=== PATIENT | male | born 1950 | race Caucasian/White ===

== ENCOUNTER 2020-02-04 09:23 | Outpatient (CLI) | payer MEDICARE, SELFPAY ==
[2020-02-04 11:03] LABS: Hepatitis B Surface Antigen Negative (Negative)
[2020-02-04 11:21] LABS: Hepatitis B Surface Anti Res Negative
[2020-02-06 09:19] LABS: Hepatitis C Viral RNA PCR <15 IU/mL
[2020-02-07 10:04] LABS: Hepatitis B Core Ab Total Nonreactive (Nonreactive)
== END 2020-02-04 09:24 | disposition home or self-care (01) ==
PROVIDERS: PCP Emergency Medicine; Visit Provider Internal Medicine Gastroenterology
DX: K70.30 Alcoholic cirrhosis of liver without ascites (principal); Z86.19 Personal history of other infectious and parasitic diseases
CPT/HCPCS: 36415; 86704; 86706; 87340; 87522

== ENCOUNTER 2020-11-07 09:25 | Outpatient (CLI) | payer MEDICARE, SELFPAY ==
--- NOTE | ~2020-11-07 | CT_ITS ---
EXAMINATION: CT chest abdomen pelvis wo con DATE: 11/07/2020 10:18 INDICATION: Congestive heart failure. TECHNIQUE: Computed tomography (CT) of the chest, abdomen, and pelvis was performed without intraveno us contrast. Automated exposure control and iterative reconstruction technique were employed. The dos e-length product was 1620.80 mGy-cm. COMPARISON: Chest CT 12/11/2019, lumbar spine 03/04/19 FINDINGS: CHEST CT: There is mild emphysema. There is mild atelectasis in the inferior lungs. There is mild bronchiectasi s in left lower lobe. No pleural effusion. The heart size is normal. There are coronary artery calcif ications. No pericardial effusion. There are chronic compression fractures of T4, T5, and T8. ABDOMEN/PELVIS CT: The liver demonstrates hypertrophy of left lateral segment and surface nodularity, consistent with ci rrhosis. There are changes of cholecystectomy. The spleen is normal in size. The pancreas, adrenal gl ands, and kidneys are normal. There is no urolithiasis. The prostate is moderately enlarged. There is diverticulosis of the colon without evidence of diverticulitis. There are no dilated loops of bowel. The appendix is normal. 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 There is a splenorenal portacaval shunt. There ar e no pathologically enlarged lymph nodes. There is no free intraperitoneal fluid. There are changes o f anterior fusion procedures at L3-L4, L4-L5, and L5-S1. There are changes of posterior fusion proced ure from T9 to the sacrum and iliac bones. There are chronic lucencies around the right L3 screw, whi ch extends into the L2 inferior endplate, consistent with loosening. The left L3 screw has been remov ed. IMPRESSION: 1. Cirrhosis of the liver with portal venous hypertension. 2. Mild emphysema. Reviewed, dictated and finalized at location A. IN STATION OPERATOR
[2020-11-07 10:36] LABS: Albumin Level 3.8 g/dL (3.5-5.1); Anion Gap 5 mmol/L (8-16); Blood Urea Nitrogen 21 mg/dL (9-20); Calcium 8.9 mg/dL (8.4-10.2); Carbon Dioxide 32 mmol/L (22-30); Chloride 97 mmol/L (98-107); Estimated Glomerular Filt Rate > 60; Glucose 120 mg/dL (75-110); Phosphorus 4.7 mg/dL (2.5-4.5); Sodium 134 mmol/L (137-145)
[2020-11-07 10:43] LABS: NT Pro B Type Natriuretic Pept 42 PG/ML (5-100)
== END 2020-11-07 09:26 | disposition home or self-care (01) ==
PROVIDERS: PCP Emergency Medicine; Visit Provider Emergency Medicine
DX: I50.9 Heart failure, unspecified (principal); I11.0 Hypertensive heart disease with heart failure; K70.31 Alcoholic cirrhosis of liver with ascites; R06.00 Dyspnea, unspecified; J43.9 Emphysema, unspecified; I25.10 Atherosclerotic heart disease of native coronary artery without angina pectoris; J47.9 Bronchiectasis, uncomplicated; N40.0 Benign prostatic hyperplasia without lower urinary tract symptoms; Z98.1 Arthrodesis status; K76.6 Portal hypertension
CPT/HCPCS: 36415; 71250; 74176; 80069; 83880

== ENCOUNTER 2020-12-02 18:35 | Emergency (ER) | payer MEDICARE, SELFPAY ==
--- NOTE | ~2020-12-02 | XR_ITS ---
EXAMINATION: XR chest 2V DATE: 12/02/2020 19:30 INDICATION: Shortness of breath and cough TECHNIQUE: PA and lateral views of the chest were obtained. COMPARISON: Chest radiograph and CT dated 11/01/2019 FINDINGS: Unchanged bandlike opacity anterior left lower lung zone consistent with lingular atelectasis along s raven a small left paracardial fat pad. Additional mild streaky atelectasis or posteriorly at the lung bases. No new airspace opacities, pulmonary edema, pleural effusion or pneumothorax. Arch size is nor mal. Cholecystectomy clips in right upper quadrant. Partially visualized bilateral vertical paul and p edicle screw fixations extending from the lower thoracic into at least the upper lumbar spine and bey ond the inferior margin of the [id number]. IMPRESSION: 1. No significant change in chronic bibasilar atelectasis/scarring. Reviewed, dictated and finalized at location A. ION MECHANIC HELPER
--- NOTE | 2020-12-02 18:37 | ECG_ITS ---
Measurements Intervals [place] Rate: 106 P: 49 UT: 202 QRS: -19 QRSD: 94 T: 46 QT: 326 QTc: 433 Interpretive Statements SINUS TACHYCARDIA VENTRICULAR PREMATURE COMPLEX INCOMPLETE RIGHT BUNDLE BRANCH BLOCK DELAYED PRECORDIAL R/S TRANSITION BASELINE ARTIFACT- I, II, III ABNORMAL ECG Electronically Signed On 12-03-2020 6:58:13 MATH AND SCIENCE INSTRUCTOR by Kendall Cameron D.O.
[2020-12-02 19:09] VITALS: BP 189/74; PULSE 98; RESP 20; TEMP 36.5; O2SAT 93
[2020-12-02 19:36] LABS: Anion Gap 5 mmol/L (8-16); Blood Urea Nitrogen 14 mg/dL (9-20); Calcium 8.8 mg/dL (8.4-10.2); Carbon Dioxide 28 mmol/L (22-30); Chloride 100 mmol/L (98-107); Estimated CRCL calculation 79 ml/min; Estimated Glomerular Filt Rate > 60; Glucose 103 mg/dL (75-110); Potassium 4.3 mmol/L (3.4-5.0); Sodium 133 mmol/L (137-145)
[2020-12-02 20:24] LABS: Basophils Percent Auto 0.6 % (0.2-1.2); Eosinophils Absolute Auto 0.1 K/mm3 (0-0.3); Eosinophils Percent Auto 2.2 % (0-4.4); Hematocrit 36.3 % (42.0-52.0); Immature Granulocyte Absolute 0.02 K/mm3 (0.00-0.031); Immature Granulocyte Percent A 0.4 % (0-0.5); Lymphocytes Absolute Auto 0.53 K/mm3 (0.9-3.2); Lymphocytes Percent Auto 10.7 % (18.3-44.2); Mean Corpuscular HGB Conc 35.8 g/dl (32-36); Mean Corpuscular Volume 97.8 fl (80-100); Monocytes Absolute Auto 0.5 K/mm3 (0.1-0.6); Monocytes Percent Auto 9.3 % (2.6-8.5); Neutrophils Absolute Auto 3.8 K/mm3 (1.3-6.7); Neutrophils Percent Auto 76.8 % (45.5-73.1); Platelet Count Result 96 k/mm3 (150-375); Red Blood Count 3.71 M/mm3 (4.6-6.20); Red Cell Distribution Width 11.9 % (11.5-14.5)
[2020-12-02 20:28] VITALS: BP 185/86; PULSE 90; PULSE 91; RESP 24; O2SAT 96
[2020-12-02] MEDS: IPRATROPIUM BR 0.02% INH SOLN 0.5 MG/2.5 ML VIAL INHALATION (21:02)
[2020-12-02] MEDS: ALBUTEROL SULFATE NEB 2.5 MG/0.5 ML INH 5 MG INHALATION (21:02)
[2020-12-02 21:07] VITALS: PULSE 103; RESP 24
[2020-12-02 21:15] VITALS: PULSE 104; RESP 20
[2020-12-02 21:17] LABS: NT Pro B Type Natriuretic Pept 50 PG/ML (5-100); Troponin I < 0.012 ng/mL (0.000-0.034)
[2020-12-02 22:12] VITALS: BP 169/72; PULSE 88; RESP 22; O2SAT 98
[2020-12-02 22:38] VITALS: BP 159/65; PULSE 102; RESP 22; O2SAT 96
--- NOTE | 2020-12-02 22:38 | ED.SOB ---
HPI - SOB/Dyspnea General Chief Complaint: Shortness of Breath/Dyspnea Stated Complaint: sob Time Seen by Provider: 12/02/20 20:23 Source: patient Mode of arrival: ambulatory Limitations: no limitations History of Present Illness HPI Narrative: 70-year-old with a history of COPD, here with complaints of shortness of breath for past few months, patient was seen earlier by his primary doctor and was later referred here to the ER. Patient states that he has been using Advair Diskus along with rescue inhaler. He is scheduled to see communication professor sometime in the next 2 months. He denies any fever or chills. Denies nausea or vomiting. Has occasional cough. Which is nonproductive. Pertinent past history: COPD Severity: mild Exacerbating factors: nothing Relieving factors: nothing Known history of: COPD Associated symptoms: denies other symptoms Related Data Home Medications Medication Instructions Recorded Confirmed albuterol sulfate 2.5 mg INHALATION Q6H 11/23/20 albuterol sulfate 90 mcg/actuation 1 inh INHALATION Q4H 11/23/20 aerosol inhaler doxazosin 4 mg tablet 4 mg PO DAILY 11/23/20 doxepin 25 mg capsule 25 mg PO DAILY 11/23/20 furosemide 20 mg tablet 20 mg PO QAM 11/23/20 gabapentin 300 mg capsule 300 mg PO DAILY 11/23/20 irbesartan 150 mg tablet 150 mg PO DAILY 11/23/20 oxycodone 5 mg tablet 5 mg PO Q8H PRN 11/23/20 phenytoin sodium extended 100 mg 100 mg PO TID 11/23/20 capsule ropinirole 1 mg tablet 1 mg PO BID 11/23/20 sertraline 100 mg tablet 100 mg PO DAILY 11/23/20 spironolactone 50 mg tablet 50 mg PO DAILY 11/23/20 umeclidinium 62.5 mcg/actuation 1 inh INHALATION DAILY 11/23/20 blister powder for inhalation zolpidem 10 mg tablet PO 11/23/20 Allergies Allergy/AdvReac Type Severity Reaction Status Date / Time hydromorphone Allergy Mild TARDIVE Verified 11/23/20 10:29 DYSKINESIA alprazolam Allergy Unknown Unknown Verified 11/23/20 10:29 codeine Allergy Unknown Unknown Verified 11/23/20 10:29 iodine Allergy Unknown Unknown Verified 11/23/20 10:29 Review of Systems Review of Systems: All systems reviewed & are unremarkable except as noted in HPI and below Constitutional: Constitutional: Reports no additional constitutional complaints Eyes: Eyes: Reports no additional eye complaints ENT: Reports system reviewed and no additional complaints, except as documented Cardiovascular: Cardiovascular: Reports no additional cardiovascular complaints Respiratory: Respiratory: Reports as per HPI Gastrointestinal: Gastrointestinal: Reports no additional gastrointestinal complaints Musculoskeletal: Musculoskeletal: Reports no additional musculoskeletal complaints PMFSH Past Medical History Medical History Osteoarthritis of spine with radiculopathy, lumbar region Other abnormal glucose Pain of right hip joint Pancytopenia Primary osteoarthritis involving multiple joints Recurrent occipital headache Right groin pain Seizure disorder Seizures Special screening for malignant neoplasm of prostate Tourette syndrome Trochanteric bursitis of right hip Unilateral inguinal hernia without obstruction or gangrene, recurrent URI, acute Family History Family History Father Acute myocardial infarction Hypertension Mother Family history of thyroid disease Family history of obesity Acute myocardial infarction Sibling Brain aneurysm Other Cerebrovascular accident Family history of cardiovascular disease Social History Social History Smoking status: Former smoker Smoking end date: 11/20/95 Alcohol intake: never Exam Narrative: Exam Narrative: GENERAL: Well-appearing, well-nourished, and in no acute distress. HEAD: Normocephalic, atraumatic. EYES: PERRLA and EOMI.. NECK: Supple. CHEST: very minimal wheeze bilateral
== END 2020-12-02 22:56 | disposition home or self-care (01) ==
PROVIDERS: Emergency Medicine; Emergency Provider Family Medicine; PCP Emergency Medicine
DX: J44.9 Chronic obstructive pulmonary disease, unspecified (principal); M47.26 Other spondylosis with radiculopathy, lumbar region; F95.2 Tourette's disorder; Z87.891 Personal history of nicotine dependence; R00.0 Tachycardia, unspecified; I49.3 Ventricular premature depolarization; I45.10 Unspecified right bundle-branch block; R94.31 Abnormal electrocardiogram [ECG] [EKG]
CPT/HCPCS: 36415; 71046; 80048; 83880; 84484; 85025; 93005; 94640; 99284

== ENCOUNTER 2020-12-17 15:34 | Outpatient (CLI) | payer MEDICARE, SELFPAY ==
[2020-12-17 15:48] LABS: Hematocrit 40.8 % (42.0-52.0); Hemoglobin 14.2 g/dL (14.0-18.0); Mean Corpuscular HGB Conc 34.8 g/dl (32-36); Mean Corpuscular Hemoglobin 34.6 pg (26-34); Mean Corpuscular Volume 99.5 fl (80-100); Mean Platelet Volume 9.5 fl (7.4-10.4); Platelet Count Result 110 k/mm3 (150-375); Red Cell Distribution Width 12.9 % (11.5-14.5); White Blood Count 6.5 K/mm3 (4.5-10.0)
[2020-12-17 16:02] LABS: Anion Gap 2 mmol/L (8-16); Blood Urea Nitrogen 17 mg/dL (9-20); CRP 0.6 mg/dL (<1.0); Calcium 9.6 mg/dL (8.4-10.2); Carbon Dioxide 31 mmol/L (22-30); Chloride 104 mmol/L (98-107); Estimated Glomerular Filt Rate > 60; Glucose 100 mg/dL (75-110); Potassium 4.9 mmol/L (3.4-5.0); Sodium 137 mmol/L (137-145)
[2020-12-17 16:09] LABS: NT Pro B Type Natriuretic Pept 84 PG/ML (5-100)
== END 2020-12-17 15:35 | disposition home or self-care (01) ==
LOC: ANHLAB 15:35
PROVIDERS: PCP Emergency Medicine; Visit Provider Internal Medicine Critical Care Medicine
DX: J44.1 Chronic obstructive pulmonary disease with (acute) exacerbation (principal); R06.02 Shortness of breath
CPT/HCPCS: 36415; 80048; 83880; 85027; 86140

== ENCOUNTER → 2020-12-29 03:51 | Outpatient (CLI) | payer MEDICARE, SELFPAY ==
[2020-12-30 18:18] LABS: SARS-CoV-2 RNA PCR Negative
== END ==
PROVIDERS: PCP Emergency Medicine; Visit Provider Internal Medicine Critical Care Medicine
DX: Z01.812 Encounter for preprocedural laboratory examination (principal); Z20.822 Contact with and (suspected) exposure to COVID-19
CPT/HCPCS: C9803; U0003; U0005

== ENCOUNTER 2020-12-31 09:04 | Outpatient (CLI) | payer MEDICARE, SELFPAY ==
--- NOTE | 2021-01-18 21:40 | WPDSLEEPSTUD ---
Sleep Study Date of Study: 12/31/20 Ordering Provider: Romeo Tanner MD Interpreting Physician: Mara Kellogg MD Sleep Study Type: Polysomnogram Height: 1.75 m Weight: 113.398 kg Body Mass Index: 36.9 Neck Circumference: 48.26 cm [place]: 1 Reason for Sleep Study Loud snoring Sleep History Marco Antonio Shirley is a 70 year old man who wakes up frequently during the night. He constantly snores and is constantly loud enough that other people complain about it. He occasionally awakens at night with heartburn, belching or coughing. He rarely awakens from sleep feeling short of breath. He does not have trouble sleeping with a cold. He does not gasp for breath at night. He frequently has breathing problems at night reported to him by his . He occasionally sweats excessively at night. He occasionally notices his heart pounding irregularly at night. He does not fall asleep during the day, does not fall asleep involuntarily, while driving. He does not fall asleep while exerting physical effort. He does not have loss of muscle tone was strong emotion. He does not have daytime difficulties due to excessive sleepiness, he is retired. He does not feel paralyzed on waking or falling asleep. He does not have vivid dreamlike scenes upon awakening or falling asleep. He rarely feels afraid to go to sleep. He does not have nightmares. He does not remember his dreams. He rarely has racing thoughts. He does not feel sad or depressed. He frequently has anxiety. He frequently has muscular tension. He rarely notices parts of his body jerking. He frequently kicks at night, frequently has crawling and aching feelings in his legs and frequently has leg pain at night. He does not have morning jaw pain or grind his teeth during sleep. He rarely is bothered by pain during the day. He occasionally is awakened by pain at night. He frequently wakes up feeling stiff in the morning with sore achy muscles and pain in the neck and spine. He has memory problems, seizures, dizziness, he take sedatives and he has a history of alcoholism. His normal bedtime is 11:30 p.m. taking 30 minutes to fall asleep, typically waking twice at night to urinate. He stays awake for 5-10 minutes before returning to sleep. He wakes up in the morning between 630 and 7:00 a.m.. He estimates normally getting 6.5- for 7 hours of sleep each night. Weekend schedule is the same. He does not generally take naps. He generally feels good when he wakes up in the morning. Habits: Quit smoking 15 years ago. Caffeine 4 beverages a day. Alcohol 4 beverages a day. [facility] Past Medical History Medical History (Updated 01/20/21 @ 13:06 by Mara Kellogg MD) Depression Hypertension Osteoarthritis of spine with radiculopathy, lumbar region Other abnormal glucose Pain of right hip joint Pancytopenia Primary osteoarthritis involving multiple joints Recurrent occipital headache Right groin pain Seizure disorder Seizures Special screening for malignant neoplasm of prostate Tourette syndrome Trochanteric bursitis of right hip Unilateral inguinal hernia without obstruction or gangrene, recurrent URI, acute Surgical History Surgical History (Updated 01/18/21 @ 21:58 by Mara Kellogg MD) History of back surgery April 2020 Family History Family History Father Acute myocardial infarction Hypertension Mother Family history of thyroid disease Family history of obesity Acute myocardial infarction Sibling Brain aneurysm Other Cerebrovascular accident Family history of cardiovascular disease Social History Social History Smoking status: Former smoker Smoking end date: 11/20/95 Alcohol intake: never Medications Home Medications Medication Instructions Recorded Confirmed Type albuterol sulfate 90 mcg/actuation 1 inh INHALATION Q4H 0
[2021-01-20 13:54] VITALS: BMI 36.9
== END 2020-12-31 09:05 | disposition home or self-care (01) ==
LOC: ANHCSM 09:05
PROVIDERS: PCP Emergency Medicine; Visit Provider Internal Medicine Critical Care Medicine
DX: G47.30 Sleep apnea, unspecified (principal); R06.83 Snoring
CPT/HCPCS: 95810

== ENCOUNTER 2021-02-11 09:05 | Outpatient (CLI) | payer MEDICARE, SELFPAY ==
--- NOTE | 2021-02-11 10:36 | ECHO_ITS ---
Patient Info Name: Marco Antonio Shirley Age: 70 years : 1950 Gender: Male Ht: 68 in Wt: 248 lbs BSA: 2.37 m2 HR: 91 bpm BP: 146 / 89 mmHg Heart Rhythm: Sinus Rhythm Exam Date: 02/11/2021 10:46 AM Exam Location: [facility] Patient Status: Outpatient Admit Date: 02/11/2021 Staff Ordering Physician: Giuseppe Velázquez APRN [employer]op Riveting Machine Operator: Rica Ayala RDCS Attending Provider: Romeo Tanner MD Referring Physician: Eber LEIJA; Exam Type: CA echo doppler color flow Study Info Indications - had to do patient sitting up. Limited views and measurements. patient very short of breath and could not lay down for test R06.02 - Shortness of breath Complete two-dimensional, color flow and Doppler transthoracic echocardiogram is performed. Summary 1. Complete two-dimensional, color flow and Doppler transthoracic echocardiogram is performed. 2. Left ventricular chamber dimension is normal. 3. Left ventricular systolic function is normal, estimated at 60-65%. 4. The left ventricular diastolic function is grade I diastolic dysfunction. 5. There is moderate asymmetric septal increased left ventricular wall thickness. Septum thickness 1.5 cm and posterior wall 0.8 cm, suggests possible hypertrophic cardiomyopathy. 6. There is mild aortic valve sclerosis. Left Ventricle Tissue doppler is not performed. There is moderate asymmetric septal increased left ventricular wall thickness. Septum thickness 1.5 cm and posterior wall 0.8 cm, suggests possible hypertrophic cardiomyopathy. Left ventricular chamber dimension is normal. Left ventricular systolic function is normal, estimated at 60-65%. The left ventricular diastolic function is grade I diastolic dysfunction. Right Ventricle Right ventricular chamber dimension is normal. Right ventricular systolic function is normal. Left Atria Left atrial chamber dimension is mildly enlarged. Right Atria Right atrial chamber dimension is normal. Aortic Valve The aortic valve is trileaflet. There is mild aortic valve sclerosis. There is no aortic valve stenosis. There is no aortic valve regurgitation. Pulmonic Valve There is no pulmonic regurgitation. Mitral Valve There is no mitral valve stenosis. There is no mitral valve regurgitation. Tricuspid Valve There is no tricuspid valve regurgitation. Pericardium/Pleural There is no pericardial effusion. Inferior Vena Cava Normal inferior vena cava with >50% collapse upon inspiration consistent with normal right atrial pressure, 5 mmHg. Aorta The aortic root size at the sinus of Valsalva is normal. Left Ventricular Outflow Tract Name Value Normal LVOT 2D LVOT Diameter 2.0 cm Pulmonic Valve Name Value Normal RVOT Doppler RVOT Peak Gradient 3 mmHg PV Doppler PV Peak Gradient 8 mmHg Mitral Valve
--- NOTE | 2021-02-14 09:57 | WPDPFTINT ---
PFT Interpretation This PFT met all criteria for ATS standards and reproducibility FEV/FVC post bronchodilator 53% FEV1 51% or 1.52 L FVC 73% or 2.88 L TLC 104% RV 172% RV/TLC 59% DLCO 61% when adjusted for alveolar volume but not adjusted for hemoglobin Flow volume loops showed significant expiratory coving Impression: moderate to severe airflow obstruction with air trapping and mildly reduced diffusion capacity is present. This pattern is suggestive of COPD. Clinical correlation is advised.
--- NOTE | 2021-02-14 09:59 | WPDSIXMINUTE ---
Six Minute Walk Six Minute Walk: The patients O2 sats started at 91% on room air and dropped as low as 89% on room air but quickly recovered to 92-96% Total walk distance 228.60 meters Uyen dyspnea score was recorded as 4-5 during the procedure. conclusion: While there was significant exertional hypoxia. This patient does not meet criteria for home oxygen therapy currently. Would suggest repeating his 6 minutes walk test every 6 months.
== END 2021-02-11 09:06 | disposition home or self-care (01) ==
LOC: ANHCARD 09:07
PROVIDERS: PCP Emergency Medicine; Visit Provider Internal Medicine Critical Care Medicine
DX: J44.1 Chronic obstructive pulmonary disease with (acute) exacerbation (principal); R06.02 Shortness of breath; I51.89 Other ill-defined heart diseases; I35.8 Other nonrheumatic aortic valve disorders
CPT/HCPCS: 93306; 94060; 94618; 94726; 94729

== ENCOUNTER 2021-02-12 06:08 | Inpatient (IN) | payer MEDICARE, SELFPAY ==
[2021-02-12] VITALS (58 sets, daily range): BP systolic 64–143; BP diastolic 35–75; PULSE 61–130; RESP 17–35; TEMP 36.3–36.8; O2SAT 94–100
--- NOTE | ~2021-02-12 | XR_ITS ---
XR abdomen NG/feed tube insert INDICATION: Evaluate OG tube position. TECHNIQUE: Limited KUB perform for evaluating NG tube . COMPARISON: No prior studies for comparison. FINDINGS: OG tube tip in the stomach. Visualized bowel gas pattern is unremarkable.There are Harring ton rods transfixing the lower thoracic and lumbar spine. Visualized bowel gas pattern is nonspecific . IMPRESSION: 1: OG tube tip in the stomach. Reviewed, dictated and finalized at location B.
--- NOTE | ~2021-02-12 | XR_ITS ---
EXAMINATION: XR chest ET placement EXAM DATE: 02/12/2021 15:07 INDICATION: Intubated and central line placement. TECHNIQUE: Portable AP frontal chest x-ray was obtained. Comparison is made to prior examination from 02/13/2020. FINDINGS: Endotracheal tip is at the graciela, should be retracted 3 cm. There is a right-sided IJ veno us line, tip at the cavoatrial junction. There is no pneumothorax suspected. Some linear left basilar atelectasis, and small to moderate left pleural effusion which was not evide nt from prior study. There are some linear perihilar opacities most consistent with atelectasis. Pneu monia not excludable. Thoracolumbar fusion hardware. There is aortic arteriosclerosis. IMPRESSION: 1. ET tube should be retracted 3 cm. I phoned this finding to the ICU. 2. No evidence of post central line pneumothorax. 3. Some scattered developing perihilar atelectasis or pneumonia. 4. Small to moderate left pleural effusion. Reviewed, dictated and finalized at location A.
--- NOTE | ~2021-02-12 | XR_ITS ---
XR chest 1V portable 02/12/2021 12:33 Indication: Increasing shortness of breath Procedure: AP portable chest Comparison: Comparison to multiple prior studies sequentially, with oldest reviewed study dated 08/01. Findings: There are linear infiltrates of the left mid and lower lung zone, most likely atelectasis. No focal pneumonia, edema, pleural effusion or pneumothorax. No acute osseous abnormality. There is s reginald hardware overlying the lower thoracic spine. There is atherosclerosis. Impression: 1: Linear infiltrates of the left mid and lower lung zone, compatible with atelectasis. Reviewed, dictated and finalized at location B. Impression: 1: Linear infiltrates of the left mid and lower lung zone, compatible with atel ectasis.
--- NOTE | ~2021-02-12 | XR_ITS ---
XR chest 1V portable DATE: 02/12/2021 07:26 INDICATION: Shortness of breath TECHNIQUE: Portable AP chest on 02/12/2021 at 0721 hours COMPARISON: 12/02/2020 PA and lateral chest FINDINGS: Cardiac megaly. Aortic arch calcification, descending thoracic aortic calcification. No hil ar or mediastinal enlargement is evident. Left lower lung infiltrate and/atelectasis is suggested. There is blunting of the left costophrenic a ngle suggesting mild left pleural effusion. Otherwise no pulmonary infiltrate or consolidation, right pleural effusion or pulmonary vascular genesis estion or pneumothorax is noted. Thoracolumbar spine pedicles and screws. Diffuse osteopenia. IMPRESSION: Left lower lobe infiltrate and/atelectasis and mild left pleural effusion Reviewed, dictated and finalized at location A. IMPRESSION: Left lower lobe infiltrate and/atelectasis and mild left pleural ef fusion
--- NOTE | ~2021-02-12 | XR_ITS ---
XR abdomen/kub 1V 02/12/2021 12:33 Indication: Possible GI bleed. Abdominal distention. Procedure: KUB Comparison: 03/13/2007 Findings: Nonobstructive bowel gas pattern. There are cholecystectomy clips. No abnormal calcificatio ns. There is spinal fusion hardware involving the lower thoracic, lumbar spine and sacrum. Lower lung zones are unremarkable. Impression: 1: Nonobstructive bowel gas pattern. Reviewed, dictated and finalized at location B. Impression: 1: Nonobstructive bowel gas pattern.
--- NOTE | 2021-02-12 06:13 | ECG_ITS ---
Measurements Intervals [place] Rate: 108 P: 64 [place]: 192 QRS: 12 QRSD: 85 T: 29 QT: 319 QTc: 428 Interpretive Statements SINUS TACHYCARDIA DELAYED PRECORDIAL R/S TRANSITION BASELINE ARTIFACT- II, III, AVF ABNORMAL ECG Electronically Signed On 02-12-2021 6:43:30 CDT by Kendall Cameron D.O.
--- NOTE | 2021-02-12 06:15 | ED.GENADULT ---
HPI - General Adult General Chief complaint: Shortness of Breath/Dyspnea <Pepito Post MD - Last Filed: 02/12/21 06:17> Stated complaint: resp distress <Pepito Post MD - Last Filed: 02/12/21 06:17> Time Seen by Provider: 02/12/21 06:11 <Pepito Post MD - Last Filed: 02/12/21 06:17> Limitations: clinical condition <Pepito Post MD - Last Filed: 02/12/21 06:17> History of Present Illness HPI narrative: Patient is 70-year-old gentleman who presents to the emergency department with chief complaint of shortness of breath. Per EMS patient called for complaining of shortness of breath and was found to have a room air saturation in the 60s to 70s the patient was started on CPAP prior to arrival to the emergency department. Patient has history of COPD and had a outpatient ultrasound at a unknown facility yesterday <Pepito Post MD - Last Filed: 02/12/21 06:17> Related Data Home medications: Home Medications Medication Instructions Recorded Confirmed albuterol sulfate 90 mcg/actuation 1 inh INHALATION Q4H 11/23/20 02/01/21 aerosol inhaler doxazosin 4 mg tablet 4 mg PO DAILY 11/23/20 02/01/21 doxepin 25 mg capsule 25 mg PO DAILY 11/23/20 02/01/21 gabapentin 300 mg capsule 300 mg PO DAILY 11/23/20 02/01/21 irbesartan 150 mg tablet 150 mg PO DAILY 11/23/20 02/01/21 oxycodone 5 mg tablet 5 mg PO Q8H PRN 11/23/20 02/01/21 phenytoin sodium extended 100 mg 100 mg PO TID 11/23/20 02/01/21 capsule ropinirole 1 mg tablet 1 mg PO BID 11/23/20 02/01/21 zolpidem 10 mg tablet PO 11/23/20 02/01/21 <Pepito Post MD - Last Filed: 02/12/21 06:17> Allergies/adverse reactions: Allergies Allergy/AdvReac Type Severity Reaction Status Date / Time hydromorphone Allergy Mild TARDIVE Verified 02/12/21 06:30 DYSKINESIA alprazolam Allergy Unknown Unknown Verified 02/12/21 06:30 codeine Allergy Unknown Unknown Verified 02/12/21 06:30 iodine Allergy Unknown Unknown Verified 02/12/21 06:30 <Pepito Post MD - Last Filed: 02/12/21 06:17> Review of Systems Review of Systems: Narrative: A 10 system review of systems was completed on the patient and is negative except for what is stated in the HPI. Nursing and ancillary documentation was reviewed. <Pepito Post MD - Last Filed: 02/12/21 06:17> [facility] Past Medical History Medical History: Medical History Depression Hypertension Osteoarthritis of spine with radiculopathy, lumbar region Other abnormal glucose Pain of right hip joint Pancytopenia Primary osteoarthritis involving multiple joints Recurrent occipital headache Right groin pain Seizure disorder Seizures Special screening for malignant neoplasm of prostate Tourette syndrome Trochanteric bursitis of right hip Unilateral inguinal hernia without obstruction or gangrene, recurrent URI, acute <Pepito Post MD - Last Filed: 02/12/21 06:17> Surgical History Surgical History: Surgical History History of back surgery April 2020 <Pepito Post MD - Last Filed: 02/12/21 06:17> Family History Family History: Family History Father Acute myocardial infarction Hypertension Mother Family history of thyroid disease Family history of obesity Acute myocardial infarction Sibling Brain aneurysm Other Cerebrovascular accident Family history of cardiovascular disease <Pepito Post MD - Last Filed: 02/12/21 06:17> Social History Social History: Social History Smoking status: Former smoker Smoking end date: 11/20/95 Alcohol intake: never <Pepito Post MD - Last Filed: 02/12/21
[2021-02-12] MEDS: methylPREDNISolone SOD SUCC 125 MG VIAL IV PUSH (06:21)
[2021-02-12] MEDS: SODIUM CHLORIDE 0.9% IV 1,000 ML 999 ML IV CONT (06:22)
[2021-02-12] MEDS: ALBUTEROL SULFATE NEB 2.5 MG/0.5 ML INH 5 MG INHALATION ×4 (06:31→14:00)
[2021-02-12] MEDS: IPRATROPIUM BR 0.02% INH SOLN 0.5 MG/2.5 ML VIAL INHALATION ×5 (06:32→20:34)
[2021-02-12 06:36] LABS: Alveolar/Arterial O2 Gradient 319.6 mmHg; Device NON-INVASIVE VENT; Fractional Inspired Oxygen 100 %; HCO3 ABG 21.7 mEq/l (22.0-26.0); Modified Allen's Test Pass; Oxygen Content ABG 14.6 %vol (16.0-22.0); Oxygen Saturation ABG 99.8 % (95.0-100.0); Oxyhemoglobin 98.2 % THb (90.0-100.0); PCO2 ABG 37.1 mmHg (35.0-45.0); PO2 ABG 356.3 mmHg (80.0-100.0); PO2 FiO2 Ratio Arterial Blood 3.56 %; Site Drawn RIGHT RADIAL; Total Hemoglobin 9.9 g/dL (12.0-18.0); pH ABG 7.384 (7.350-7.450)
[2021-02-12 06:37] LABS: Non-Invasive Expiratory Pressure 6 CMH2O; Non-Invasive Inspiratory Pressure 12 CMH2O; Non-Invasive Vent Rate 12 /MIN
[2021-02-12 07:27] LABS: Basophils Percent Auto 0.2 % (0.2-1.2); Eosinophils Percent Auto 0.1 % (0-4.4); Hematocrit 28.5 % (42.0-52.0); Hemoglobin 9.4 g/dL (14.0-18.0); Immature Granulocyte Absolute 0.18 K/mm3 (0.00-0.031); Lymphocytes Absolute Auto 1.17 K/mm3 (0.9-3.2); Lymphocytes Percent Auto 6.3 % (18.3-44.2); Mean Corpuscular Hemoglobin 34.4 pg (26-34); Mean Corpuscular Volume 104.4 fl (80-100); Mean Platelet Volume 10.6 fl (7.4-10.4); Monocytes Absolute Auto 1.4 K/mm3 (0.1-0.6); Monocytes Percent Auto 7.3 % (2.6-8.5); Neutrophils Absolute Auto 15.8 K/mm3 (1.3-6.7); Neutrophils Percent Auto 85.1 % (45.5-73.1); Platelet Count Result 142 k/mm3 (150-375); Red Blood Count 2.73 M/mm3 (4.6-6.20); Red Cell Distribution Width 13.2 % (11.5-14.5); White Blood Count 18.6 K/mm3 (4.5-10.0)
[2021-02-12 07:37] LABS: INR 1.3; Partial Thromboplastin Time 22.9 SECONDS (22.3-36.8); Prothrombin Time 16.7 Seconds (11.1-14.7)
[2021-02-12 07:39] LABS: Alanine Aminotransferase 25 U/L (4-50); Alkaline Phosphatase 71 U/L (38-126); Anion Gap 7 mmol/L (8-16); Aspartate Amino Transferase 29 U/L (17-59); Bilirubin,Total 0.7 mg/dL (0.2-1.3); Blood Urea Nitrogen 61 mg/dL (9-20); Calcium 8.5 mg/dL (8.4-10.2); Carbon Dioxide 25 mmol/L (22-30); Chloride 104 mmol/L (98-107); Estimated CRCL calculation 74 ml/min; Estimated Glomerular Filt Rate > 60; Glucose 154 mg/dL (75-110); Magnesium 1.9 mg/dL (1.6-2.3); Sodium 136 mmol/L (137-145)
[2021-02-12 08:01] LABS: NT Pro B Type Natriuretic Pept 113 PG/ML (5-100); Troponin I 0.089 ng/mL (0.000-0.034)
[2021-02-12] MEDS: ASPIRIN 81 MG CHEWABLE TABLET 324 MG PO (08:37)
--- NOTE | 2021-02-12 09:22 | ADMGEN ---
This patient, Marco Antonio Shirley, was admitted to IMU Room 211-01 at 0845. Patient/family oriented to hospital policies and general routines including ID bracelet, bed and alarms, visiting hours, pain management, procedures, bathroom and other care routines, personal items, smoking policy, room service/diet, and visiting hours. Information on how to activate the Rapid Response Team has been discussed. Patient/Family are encouraged to report perceived risks to care and to ask questions if they do not understand what they are told or what they should do.
[2021-02-12] MEDS: PANTOPRAZOLE SODIUM IV 40 MG VIAL IV PUSH ×2 (10:56→14:03)
[2021-02-12] MEDS: SODIUM CHLORIDE 0.9% IV 1,000 ML 100 ML IV CONT (10:56)
[2021-02-12 10:59] LABS: Troponin I 0.142 ng/mL (0.000-0.034)
[2021-02-12 11:10] LABS: Reflex Lactic Acid Yes or No Add Lactic
--- NOTE | 2021-02-12 11:32 | PM.IMHP ---
H&P: HPI History of Present Illness Date/Time: 02/12/21 11:32 Chief Complaint: Shortness of breath for 2 days Narrative: 70 years old male with past medical history of COPD, home oxygen use, tolerate syndrome, seizure disorder, osteoarthritis, chronic depression, hypertension, was admitted through the emergency room with a complaint that the patient called EMS service because of having shortness of breath and inability to breathe on his on at his home this morning. Upon arrival EMS found patient to be hypoxic in 60s saturations. Patient was given oxygen and oxygen saturation improved upon arrival in the emergency room patient was found to be mildly hypoxic but mainly hypercapnic and respiratory distress improved after giving oxygenation and BiPAP treatment. At present time patient is lying comfortably in the bed. Has mild shortness of breath. Although the troponin patient denies any abdominal pain nausea or vomiting. Patient to have a history of dark colored stools. No fever no chills. Mood stable denies any suicidal or homicidal ideation. Hypertrophy patient denies any chest pain. Review of Systems Review of Systems: All systems reviewed & are unremarkable except as noted in HPI and below (the history and physical exam) [facility] Past Medical History Medical History Depression Hypertension Osteoarthritis of spine with radiculopathy, lumbar region Other abnormal glucose Pain of right hip joint Pancytopenia Primary osteoarthritis involving multiple joints Recurrent occipital headache Right groin pain Seizure disorder Seizures Special screening for malignant neoplasm of prostate Tourette syndrome Trochanteric bursitis of right hip Unilateral inguinal hernia without obstruction or gangrene, recurrent URI, acute Surgical History Surgical History History of back surgery April 2020 Family History Family History Father Acute myocardial infarction Hypertension Mother Family history of thyroid disease Family history of obesity Acute myocardial infarction Sibling Brain aneurysm Other Cerebrovascular accident Family history of cardiovascular disease Social History Social History Smoking packs per day: 2 Smoking cigarettes per day: 40.0 Years smoked: 37 Smoking pack-years: 74.00 Smoking status: Former smoker Smoking end date: 11/20/95 Alcohol intake: never Spiritual care concerns: No Meds Home Medications and Allergies Home Medications Medication Instructions Recorded Confirmed Type albuterol sulfate 90 mcg/actuation 1 inh INHALATION Q4-6H PRN 11/23/20 02/12/21 History aerosol inhaler doxepin 25 mg capsule 25 mg PO DAILY 11/23/20 02/12/21 History irbesartan 150 mg tablet 150 mg PO DAILY 11/23/20 02/12/21 History oxycodone 5 mg tablet 5 mg PO TID PRN 11/23/20 02/12/21 History phenytoin sodium extended 100 mg 200 mg PO BID 11/23/20 02/12/21 History capsule ropinirole 1 mg tablet 1 mg PO TID 11/23/20 02/12/21 History zolpidem 10 mg tablet 5 mg PO HS PRN 11/23/20 02/12/21 History albuterol sulfate 2.5 mg INHALATION Q6H #90 ml 12/28/20 02/12/21 Rx prednisone 10 mg tablet 10 mg PO DIRECTED #34 tablet 02/01/21 02/12/21 Rx acetaminophen 650 mg PO TID 02/12/21 02/12/21 History celecoxib [Celebrex] 200 mg PO BID 02/12/21 02/12/21 History diclofenac sodium 75 mg PO BID 02/12/21 02/12/21 History ergocalciferol (vitamin D2) 50,000 unit PO WEEKLY 02/12/21 02/12/21 History polyethylene glycol 3350 [Miralax] 17 g PO DAILY 02/12/21 02/12/21 History senna-docusate sodium 1 tablet PO BID 02/12/21 02/12/21 History Allergies Allergy/AdvReac Type Severity Reaction Status Date / Time hydromorphone Allergy Mild TARDIVE Verified 02/12/21 06:30 DYSKINESIA alprazolam Allergy Unknown Unknown Verified
[2021-02-12 11:58] LABS: Lactic Acid 2.4 mmol/L (0.7-2.1)
[2021-02-12] MEDS: SODIUM CHLORIDE 0.9% IV 500 ML IV CONT (12:30)
[2021-02-12 12:52] LABS: Phenytoin Dilantin 4 ug/mL (10-20)
[2021-02-12 12:53] LABS: Glucose Point of Care 158 (65-105)
[2021-02-12 13:17] LABS: IFOB Positive Control Positive; Immunochemical Fecal Occult Bl Positive (N)
[2021-02-12 13:31] LABS: Alveolar/Arterial O2 Gradient 101.7 mmHg; Base Excess ABG -4.7 mEq/l (+/-2.0); Fractional Inspired Oxygen 35 %; HCO3 ABG 18.8 mEq/l (22.0-26.0); Oxygen Content ABG 12.4 %vol (16.0-22.0); Oxygen Saturation ABG 98.3 % (95.0-100.0); Oxyhemoglobin 96.3 % THb (90.0-100.0); PCO2 ABG 29.1 mmHg (35.0-45.0); PO2 FiO2 Ratio Arterial Blood 3.26 %; pH ABG 7.428 (7.350-7.450)
[2021-02-12 13:32] LABS: Device NON-INVASIVE VENT; Modified Allen's Test Pass; Site Drawn RIGHT RADIAL
[2021-02-12 13:33] LABS: Non-Invasive Expiratory Pressure 6 CMH2O; Non-Invasive Inspiratory Pressure 12 CMH2O; Non-Invasive Vent Rate 12 /MIN
[2021-02-12] MEDS: MIDAZOLAM HCL (*CRX) 2 MG/2 ML VIAL 1 MG IV PUSH (14:06)
[2021-02-12 14:09] LABS: Add Urine Microscopic? NO; Appearance Urine Clear (Clear); Bilirubin Urine Negative (Negative); Blood Urine Negative (Negative); Color Urine Yellow (Yellow); Glucose Urine UA Negative (Negative); Ketones Urine Negative (Negative); Leukocyte Esterase Ur Negative LEU/UL (Negative); Nitrate Urine Negative (Negative); Protein Urine Negative (Negative); Specific Grav Ur 1.023 (1.001-1.035); Urobilinogen Urine Negative mg/dL (<2.0)
[2021-02-12] MEDS: fentaNYL CITRATE INJ (*CRX) 100 MCG/2 ML VIAL IV PUSH (14:50)
[2021-02-12] MEDS: PROPOFOL IV EMULSION 100 ML 6.91 MG IV CONT (15:00)
[2021-02-12] MEDS: NOREPINEPHRINE 8 MG/D5W 250 ML 8 MG/250 ML BAG 28.13 MG IV CONT (15:05)
[2021-02-12] MEDS: LACTATED RINGERS 1,000 ML 75 ML IV CONT (15:10)
[2021-02-12] MEDS: LACTATED RINGERS 2,000 ML 999 ML IV CONT (15:10)
--- NOTE | 2021-02-12 15:15 | PM.CNCAR ---
Assessment and Plan Additional Plan Patient with trivial troponin elevation almost certainly the result of respiratory failure requiring emergency intubation and the patient is also apparently GI bleeding with a significant drop in his hemoglobin level as compared to what was seen here in November a few months ago. He is in the ICU receiving Critical Care. At this point I do not believe he needs an ischemia workup and I do not anticipate pursuing this during this hospitalization. Aggressive supportive care is already being provided otherwise. Dell Lorenzana MD [facility] History of Present Illness History of Present Illness Consult date/time: 02/12/21 15:15 Reason For Visit: Respiratory failure with hypoxia, community- Narrative: This is a 70-year-old man who I have been asked to see at the request of the hospitalist because of elevated troponin level. The patient according to the chart is not known to have overt coronary artery disease in the past apparently he has a history of significant lung disease and he presented to the hospital he early this morning with shortness of breath. He was placed on a BiPAP device in the IMU and apparently is earlier today became agitated and was ripping off the BiPAP device. He was developing respiratory extremis he was transported urgently to the ICU room 9. Where he was sedated intubated and placed on mechanical ventilator support. During the same period of time the intensive is noted that the patient was having melanotic stools and is being seen by Gastroenterology consulted urgently for endoscopy because of significant GI bleeding. In the middle of all of this troponin levels were sampled and because they were out of normal range I have been consulted to see him. The electrocardiograms do not show any evidence of acute coronary syndrome or ST-elevation. Troponin levels specifically were 0.08 and 0.1. Hemoglobin hematocrit are in the range of 9 and 28 and they were normal in November. Review of Systems Review of Systems: ROS unobtainable: Yes unobtainable due to endotracheal tube PMFSH Past Medical History Medical History (Updated 02/12/21 @ 11:37 by Aris Betancourt MD) Depression Hypertension Osteoarthritis of spine with radiculopathy, lumbar region Other abnormal glucose Pain of right hip joint Pancytopenia Primary osteoarthritis involving multiple joints Recurrent occipital headache Right groin pain Seizure disorder Seizures Special screening for malignant neoplasm of prostate Tourette syndrome Trochanteric bursitis of right hip Unilateral inguinal hernia without obstruction or gangrene, recurrent URI, acute Surgical History Surgical History History of back surgery April 2020 Family History Family History Father Acute myocardial infarction Hypertension Mother Family history of thyroid disease Family history of obesity Acute myocardial infarction Sibling Brain aneurysm Other Cerebrovascular accident Family history of cardiovascular disease Social History Social History Smoking packs per day: 2 Smoking cigarettes per day: 40.0 Years smoked: 37 Smoking pack-years: 74.00 Smoking status: Former smoker Smoking end date: 11/20/95 Alcohol intake: never Spiritual care concerns: No Meds Home Medications and Allergies Home Medications Medication Instructions Recorded Confirmed Type albuterol sulfate 90 mcg/actuation 1 inh INHALATION Q4-6H PRN 11/23/20 02/12/21 History aerosol inhaler doxepin 25 mg capsule 25 mg PO DAILY 11/23/20 02/12/21 History irbesartan 150 mg tablet 150 mg PO DAILY 11/23/20 02/12/21 History oxycodone 5 mg tablet 5 mg PO TID PRN 11/23/20 02/12/21 History phenytoin sodium extended 100 mg 200 mg PO BID 11/23/20 02/12/21 History capsule ropinirole 1 mg tablet 1 mg PO TID 0
--- NOTE | 2021-02-12 16:03 | WPDGICN ---
Assessment and Plan Assessment and plan (1) UGIB (upper gastrointestinal bleed): Code(s): K92.2 - Gastrointestinal hemorrhage, unspecified Status: Acute Assessment and Plan: had melena and we are going to proceed with urgent EGD to assess source of bleeding, could be ulcers, esophagitis but also varices (h/o cirrhosis based on imaging) (2) Acute blood loss anemia: Code(s): D62 - Acute posthemorrhagic anemia Status: Acute Assessment and Plan: due to gib, monitor in ICU, transfuse if hb<7, on protonix drip more recommendations after egd (3) Cirrhosis: Code(s): K74.60 - Unspecified cirrhosis of liver Status: Acute Assessment and Plan: I found that CT scan few months ago showed cirrhosis but I do not have more history, we will need to ask family when available (4) Acute respiratory failure with hypoxia: Code(s): J96.01 - Acute respiratory failure with hypoxia Status: Acute Assessment and Plan: intubated and now in ICU, also on iv antibiotics (5) COPD exacerbation: Code(s): J44.1 - Chronic obstructive pulmonary disease with (acute) exacerbation Status: Acute (6) Sepsis: Code(s): A41.9 - Sepsis, unspecified organism Status: Acute (7) Thrombocytopenia: Code(s): D69.6 - Thrombocytopenia, unspecified Status: Acute Assessment and Plan: probably from cirrhosis, monitor (8) Elevated troponin: Code(s): R77.8 - Other specified abnormalities of plasma proteins Status: Acute Assessment and Plan: probably from gib and respiratory failure, cardiology will evaluate GI Consult Note Consult date/time: 02/12/21 16:03 Reason for consult: melena, GIB, cirrhosis HPI: Marco Antonio Shirley is a 70 year old male with history of COPD, home oxygen use,seizure disorder, osteoarthritis, chronic depression, hypertension and cirrhosis (based on CT scan months ago) who was admitted earlier with worsening shortness of breath and brought here by EMS, he was found to be hypoxic in 60s saturations, he was given bipap, then in the floor rapid response was called and he was intubated and now is in ICU, I could not get any history from him but also RN mentioned that patient had melena and also acute anemia. Blood work reviewed, hb 9.4 (recently was 14), platelets 142 (mild thrombocytopenia previous labs), bun 61, creat 1, inr 1.3, lactic 2.5, liver enzymes normal, troponin levels were 0.08 [address] He had [address] scan 10/2020 that showed cirrhosis. He is sedated and on levophed, also protonix drip and iv antibiotics. Review of Systems Constitutional: Constitutional: Reports lethargy Eyes: Eyes: Reports no additional eye complaints ENT: Reports system reviewed and no additional complaints, except as documented Respiratory: Respiratory: Reports dyspnea on exertion Gastrointestinal: Gastrointestinal: Reports melena Genitourinary: Genitourinary: Denies dysuria Musculoskeletal: Musculoskeletal: Denies neck pain Integumentary/Breasts: Skin/Breast: Denies dry skin Neurologic: Reports system reviewed and no additional complaints, except as documented [facility] Past Medical History Medical History (Updated 02/12/21 @ 16:13 by Poli Hou MD) Acute blood loss anemia Cirrhosis Depression Hypertension Osteoarthritis of spine with radiculopathy, lumbar region Other abnormal glucose Pain of right hip joint Pancytopenia Primary osteoarthritis involving multiple joints Recurrent occipital headache Right groin pain Seizure disorder Seizures Special screening for malignant neoplasm of prostate Thrombocytopenia Tourette syndrome Trochanteric bursitis of right hip UGIB (upper gastrointestinal bleed) Unilateral inguinal hernia without obstruction or gangrene, recurrent URI, acute Surgical History Surgical History History of back surgery April 2020 Family Histo
[2021-02-12] MEDS: LORazepam INJ (*CRX) 2 MG/ML VIAL IV PUSH ×2 (16:30→18:23)
[2021-02-12 17:09] LABS: Lactic Acid Reflex 2.3 mmol/L (0.7-2.1)
[2021-02-12 17:10] LABS: Potassium 5.5 mmol/L (3.4-5.0)
[2021-02-12 17:16] LABS: Basophils Percent Auto 0.1 % (0.2-1.2); Hematocrit 23.4 % (42.0-52.0); Hemoglobin 7.7 g/dL (14.0-18.0); Immature Granulocyte Absolute 0.24 K/mm3 (0.00-0.031); Immature Granulocyte Percent A 0.9 % (0-0.5); Lymphocytes Percent Auto 2.9 % (18.3-44.2); Mean Corpuscular HGB Conc 32.9 g/dl (32-36); Mean Corpuscular Hemoglobin 34.2 pg (26-34); Mean Platelet Volume 10.5 fl (7.4-10.4); Monocytes Absolute Auto 1.5 K/mm3 (0.1-0.6); Monocytes Percent Auto 5.3 % (2.6-8.5); Neutrophils Absolute Auto 24.6 K/mm3 (1.3-6.7); Neutrophils Percent Auto 90.8 % (45.5-73.1); Platelet Count Result 183 k/mm3 (150-375); Red Blood Count 2.25 M/mm3 (4.6-6.20); Red Cell Distribution Width 13.2 % (11.5-14.5); White Blood Count 27.1 K/mm3 (4.5-10.0)
[2021-02-12 17:19] LABS: Alanine Aminotransferase 22 U/L (4-50); Albumin Level 2.5 g/dL (3.5-5.1); Alkaline Phosphatase 58 U/L (38-126); Anion Gap 5 mmol/L (8-16); Aspartate Amino Transferase 26 U/L (17-59); Bilirubin,Total 0.5 mg/dL (0.2-1.3); Blood Urea Nitrogen 76 mg/dL (9-20); Calcium 7.6 mg/dL (8.4-10.2); Carbon Dioxide 23 mmol/L (22-30); Chloride 106 mmol/L (98-107); Estimated CRCL calculation 67 ml/min; Estimated Glomerular Filt Rate > 60; Glucose 194 mg/dL (75-110); Magnesium 1.7 mg/dL (1.6-2.3); Phosphorus 3.5 mg/dL (2.5-4.5); Sodium 134 mmol/L (137-145)
[2021-02-12] MEDS: fentaNYL CITRATE INJ (*CRX) 100 MCG/2 ML VIAL 50 MCG IV PUSH (17:20)
[2021-02-12 17:26] LABS: Troponin I 0.131 ng/mL (0.000-0.034)
[2021-02-12] MEDS: PROPOFOL IV EMULSION 100 ML 34.56 MG IV CONT ×3 (17:35→23:42)
[2021-02-12] MEDS: rOPINIRole HCL 1 MG TABLET PO (17:45)
[2021-02-12] MEDS: IRBESARTAN 150 MG TABLET PO (17:46)
[2021-02-12] MEDS: PHENYTOIN SODIUM 100 MG CAP 200 MG PO (17:47)
[2021-02-12] MEDS: DOXEPIN HCL 25 MG CAPSULE PO (17:47)
[2021-02-12] MEDS: ACETAMINOPHEN 325 MG TABLET 650 MG PO ×2 (17:47→18:17)
[2021-02-12] MEDS: methylPREDNISolone SOD SUCC 125 MG VIAL 60 MG IV PUSH ×2 (17:48→21:55)
--- NOTE | 2021-02-12 18:30 | PC.NURSE ---
Spouse to bedside. Updated on plan of care and possible transfer to [facility] or [facility] per Dr. Peters recommendation.
[2021-02-12] MEDS: FENTANYL 2,500MCG/NS250ML(*CRX 2,500 MCG/250 ML BAG IV CONT (18:40)
[2021-02-12] MEDS: NOREPINEPHRINE 8 MG/D5W 250 ML 8 MG/250 ML BAG 56.25 MG IV CONT (20:02)
[2021-02-12] MEDS: ALBUTEROL SULFATE NEB 2.5 MG/3 ML INH INHALATION (20:34)
--- NOTE | 2021-02-12 20:56 | WPDCNINT ---
Assessment and Plan Assessment and plan (1) Cirrhosis: Qualifiers: Hepatic cirrhosis type: unspecified hepatic cirrhosis Ascites presence: unspecified Qualified Code(s): K74.60 - Unspecified cirrhosis of liver Code(s): K74.60 - Unspecified cirrhosis of liver Status: Acute (2) UGIB (upper gastrointestinal bleed): Code(s): K92.2 - Gastrointestinal hemorrhage, unspecified Status: Acute Assessment and Plan: From Gastric Varicies which was not bleeding at the time of EGD. Needs IR for TIPS as definitive therapy. Has been accepted by Dr. Chew at [facility] ICU. Awaiting a bed Continue PPI and Octreotide drip NSAIDS and ASA held and avoid systemic steroids transfusing blood to keep Hgb > 8 in light of elevated trop and possible demand ishemia continue ceftriaxone for post variceal bleeding prophylaxis NPO (3) Tourette syndrome: Code(s): F95.2 - Tourette's disorder Status: Acute (4) Seizure disorder: Code(s): G40.909 - Epilepsy, unspecified, not intractable, without status epilepticus Status: Acute (5) Acute respiratory failure with hypoxia: Code(s): J96.01 - Acute respiratory failure with hypoxia Status: Acute Assessment and Plan: Secondary to COPD exacerbation (6) COPD exacerbation: Code(s): J44.1 - Chronic obstructive pulmonary disease with (acute) exacerbation Status: Acute Assessment and Plan: - Nebulized Pulmicort 1.0 mg Q12h - Ipratropium 0.5 mg Q6h - Albuterol 2.5 mg Q6h PRN - will avoid systemic steroids in light of upper GI bleed (7) Sleep apnea: Qualifiers: Sleep apnea type: unspecified type Qualified Code(s): G47.30 - Sleep apnea, unspecified Code(s): G47.30 - Sleep apnea, unspecified Status: Acute (8) Elevated troponin: Code(s): R77.8 - Other specified abnormalities of plasma proteins Status: Acute Assessment and Plan: Likely demand ischemia from respiratory failure and hypotension. Appreciate Cardiology input. Echo from a few weeks ago suggested possible hypertrophic cardiomyopathy. (9) Shock: Code(s): R57.9 - Shock, unspecified Status: Acute Assessment and Plan: due to mostly sedation in the setting of liver cirrhosis. GI bleed somewhat contributing. Additional Plan DVT prophylaxis -SCD Code Status - Full Code Critical care time spent: 90 minutes This dictation may have been done utilizing a voice recognition system. Attempts have been made to correct errors. However, there may be uncorrected grammatical, spelling, and recognition errors present. Due to a high probability of clinically significant, life threatening deterioration, the patient required my highest level of preparedness to intervene emergently and I personally spent this critical care time directly and personally managing the patient. This critical care time included obtaining a history; examining the patient; pulse oximetry; ordering and review of studies; arranging urgent treatment with development of a management plan; evaluation of patient's response to treatment; frequent reassessment; and discussions with other providers. It was exclusive of separately billable procedures and treating other patients and teaching time. Please see Assessment and Plan section and the rest of the note for further information on patient [employer] Consult Note Consult date: 02/12/21 Time Seen: 13:00 HPI: Marco Antonio Shirley is a 70 year old obese male with COPD. Tourette's syndrome, depression, OA, Liver cirrhosis presents with a COPD exacerbation with symptoms. He has moderate to severe COPD and has had multiple exacerbations in the past 3-6 months requiring multiple rounds of prednisone and antibiotics. He was admitted this morning with another COPD exacerbation with acute hypoxemic respiratory failure and was found to have melena. He was transferred to the ICU because of hypotension, melena and pro
--- NOTE | 2021-02-12 21:38 | WPDPROCEDUR ---
Procedures Central Line Placement Right SC: Central Line Date: 02/12/21 Central Line Time: 14:30 Discussed w/ the patient/family/POA,the placement of a central venous catheter, including its clinical necessity/indication & associated potential risks, benifits and alternatives.: Yes The patient/family/POA understand(s) and acknowledge(s) the need to proceed with central venous catheter insertion as an important element of the patient's clinical management.: Yes Consent: From patient prior to intubation Time Out Performed: Yes Patient Position: supine Patient placed on monitor/pulse ox: Yes Provider Prep: mask, sterile gown, sterile gloves, Max. sterile barrier precautions, cap and hand hygiene with conventional soap/water or alcohol based hand rub Central line prep: 2% Chlorhexidine scrub and sterile full body sheet applied Local anesthesia used: lidocaine 1% Amount of anesthesia used (ml): 5 Sterile US Technique with sterile gel/sterile probe covers: No Central line lumen inserted: triple Length (cm): 16 Post Procedure: sutured in place, good blood return, all ports aspirated, flushed, capped, transparent dressing, antimicrobial product and aseptic technique maintained throughout procedure Post procedure x-ray: tip of catheter in good position and no pneumothorax seen Patient tolerated procedure: well and no complications Complications: none Intubation Intubation Date: 02/12/21 Intubation Time: 14:00 A pre-procedural Time-Out was completed immediately before starting the procedure and confirmed: Patient Identification, Site, Procedure, Patient Position and the Availability of Requisite Equipment: Yes Sedative: ketamine Mg given: 100 Paralytic: rocuronium Mg given: 100 Assist device used: fiber optic device ET tube size: cuffed Tube secured depth (cm): 24 Tube secured location: teeth Tube placement confirmation: visualized tube passing through cords Patient tolerated procedure: well and no complications Intubation complications: none
[2021-02-12] MEDS: MAGNESIUM SULF 2 GM/WATER 50ML 2 GM/50 ML BAG IVPB (21:55)
[2021-02-12 22:27] LABS: Hematocrit 33.7 % (42.0-52.0); Hemoglobin 11.2 g/dL (14.0-18.0)
[2021-02-12 23:47] LABS: Glucose Point of Care 252 (65-105)
[2021-02-13] VITALS: PULSE 72
[2021-02-13 00:29] VITALS: BP 104/39
[2021-02-13 01:42] LABS: SARS-CoV-2 RNA PCR Negative
[2021-02-13 02:00] VITALS: BP 104/39; PULSE 71; PULSE 73; RESP 18; O2SAT 94
[2021-02-13 02:07] VITALS: BP 104/39
[2021-02-13] MEDS: NOREPINEPHRINE 8 MG/D5W 250 ML 8 MG/250 ML BAG 56.25 MG IV CONT (02:07)
[2021-02-13] MEDS: PROPOFOL IV EMULSION 100 ML 34.56 MG IV CONT (02:11)
[2021-02-13 02:30] VITALS: PULSE 74; O2SAT 94
--- NOTE | 2021-03-21 07:37 | PM.DS ---
DS: Admitting Diagnosis Admitting Diagnosis Admitting Diagnosis: 1. Acute respiratory failure with hypoxia 2. Pneumonia 3. Elevated troponin 4. anemia DS: Discharge Diagnosis Discharge Diagnosis (1) Acute respiratory failure with hypoxia: Code(s): J96.01 - Acute respiratory failure with hypoxia Status: Acute Assessment and Plan: Will continue with BiPAP and oxygen. Will give steroids and monitor oxygen. (2) Community acquired pneumonia: Code(s): J18.9 - Pneumonia, unspecified organism Status: Acute Assessment and Plan: Chest x-ray noted. Will do blood culture and start IV antibiotics. (3) Elevated troponin: Code(s): R77.8 - Other specified abnormalities of plasma proteins Status: Acute Assessment and Plan: Will consult cardiology and monitor troponin (4) Anemia: Code(s): D64.9 - Anemia, unspecified Status: Acute Assessment and Plan: Will do Hemoccult stools if positive will consult gastroenterology, also start H2 blockers. (5) Sleep apnea: Qualifiers: Sleep apnea type: unspecified type Qualified Code(s): G47.30 - Sleep apnea, unspecified Code(s): G47.30 - Sleep apnea, unspecified Status: Inactive Assessment and Plan: Continue BiPAP. (6) COPD exacerbation: Code(s): J44.1 - Chronic obstructive pulmonary disease with (acute) exacerbation Status: Acute Assessment and Plan: IV steroids, nebulizer treatment, oxygen, BiPAP, (7) Tourette syndrome: Code(s): F95.2 - Tourette's disorder Status: Acute Assessment and Plan: Stable on med (8) Seizure disorder: Code(s): G40.909 - Epilepsy, unspecified, not intractable, without status epilepticus Status: Acute Assessment and Plan: Check Dilantin level continue home meds (9) Depression: Code(s): F32.9 - Major depressive disorder, single episode, unspecified Status: Acute Assessment and Plan: Stable on med DS: Summary Hospital Course Reason for hospitalization: 1. acute respiratory failure with hypoxia. community-acquired pneumonia, anemia, elevated troponin Hospital Course: 70 years old admitted S admitted with shortness of breath, patient was found to have community-acquired pneumonia, patient also have a repeat troponin. patient was admitted with acute respiratory failure with hypoxia. patient was given antibiotic and oxygen. after consultation with ICU attending it was decided the patient would be transferred to tertiary care hospital for further eval and treatment. patient was transferred in stable condition. Time spent discussing smoking cessation with patient: more than 10 minutes Status at Discharge Cognitive/behavioral status at discharge: stable Functional status at discharge: bed bound Overall status at discharge: patient is not back to baseline Time Spent with Patient Time attestation: Total time spent providing and/or coordinating discharge services: Time spent: Greater than 30 minutes Exam Narrative: Exam Narrative: Exam Narrative: GENERAL: ill-appearing, well-nourished, and in mild respiratory distress. HEAD: Normocephalic, atraumatic. EYES: PERRLA and EOMI. ENT: Nares clear, no rhinorrhea or epistaxis. Mucous membranes moist. NECK: Supple. CHEST: Diminished breath breath sounds bilaterally. Mild respiratory distress. HEART: Regular rate and rhythm. No murmur heard. Normal peripheral pulses. ABDOMEN: Soft, nontender, nondistended, normal active bowel sounds. EXTREMITIES: Normal range of motion. No edema. SKIN: Warm, dry, no rash. NEURO: No focal deficits. Alert and oriented x3. PSYCH: Normal mood and affect. <Pepito Post MD - Last Filed: 02/12/21 06:17> Discharge Plan Discharge Attending physician on discharge: Aris Betancourt Consulting providers: Romeo Tanner ; Poli Hou ; Dell Lorenzana ; Jorge Blake ; Alice
== END 2021-02-13 03:05 | disposition short-term general hospital (02) | DRG 208 ==
LOC: ANHED 07:05 → ANHIMU 08:16 → ANHICU 14:03 → ANHIMU 02-15 17:16
PROVIDERS: Emergency Medicine; Internal Medicine Critical Care Medicine; Internal Medicine Gastroenterology; Admitting Provider Internal Medicine; Emergency Provider Emergency Medicine; PCP Emergency Medicine; Visit Provider Family Medicine
PROC: 0DJ08ZZ Inspection of Upper Intestinal Tract, Via Natural or Artificial Opening Endoscopic (ICD-10-PCS; CPT 43235; principal; 2021-02-12 15:30)
DX: J96.01 Acute respiratory failure with hypoxia (principal); J18.9 Pneumonia, unspecified organism; I85.01 Esophageal varices with bleeding; K26.4 Chronic or unspecified duodenal ulcer with hemorrhage; I85.11 Secondary esophageal varices with bleeding; R57.8 Other shock; J44.1 Chronic obstructive pulmonary disease with (acute) exacerbation; D61.818 Other pancytopenia; D64.9 Anemia, unspecified; F95.2 Tourette's disorder; G40.909 Epilepsy, unspecified, not intractable, without status epilepticus; F32.9 Major depressive disorder, single episode, unspecified; K44.9 Diaphragmatic hernia without obstruction or gangrene; K74.60 Unspecified cirrhosis of liver
CPT/HCPCS: 31500; 36415; 36430; 36600; 71045; 74018; 80053; 80185; 81003; 82274; 82805; 82948; 83605; 83735; 83880; 84100; 84484; 85014; 85018; 85025; 85610; 85730; 86850; 86900; 86901; 86920; 87040; 93005; 93306; 94002; 94003; 94060; 94618; 94640; 94726; 94729; 96361; 96374; 96375; 99285; A9270; C1751; C9113; C9803; J0456; J0696; J2060; J2250; J2354; J2370; J2704; J2930; J3010; J3475; J7030; J7040; J7050; J7060; J7120; P9016; U0003; U0005

== ENCOUNTER 2021-03-16 09:47 | Emergency (ER) | payer MEDICARE, SELFPAY ==
[2021-03-16] VITALS (7 sets, daily range): BP systolic 99–110; BP diastolic 56–82; PULSE 69–106; RESP 16–22; TEMP 36.3–36.4; O2SAT 95–99
--- NOTE | ~2021-03-16 | XR_ITS ---
EXAMINATION: XR chest 2V EXAM DATE: 03/16/2021 10:23 INDICATION: Bilateral leg swelling. TECHNIQUE: Frontal and lateral projections of the chest obtained and reviewed. Comparison is made to prior examination from 02/12/2021. FINDINGS: Small amount of bibasilar linear atelectasis. Small bilateral pleural effusions. No conflu ent consolidation or pneumothorax. Cardiomediastinal silhouette is normal. There is aortic arterioscl erosis. Thoracolumbar rods. Heart size upper limits of normal. IMPRESSION: 1. Bibasilar atelectasis. 2. Small pleural effusions. Reviewed, dictated and finalized at location A.
--- NOTE | ~2021-03-16 | US_ITS ---
EXAMINATION:US venous doppler LE RT INDICATION:Leg swelling TECHNIQUE: Multiple grayscale, color flow and Doppler images of the right lower extremity deep venous systems were obtained and reviewed. COMPARISON:05/09/2012 FINDINGS: The common femoral, superficial femoral and popliteal veins demonstrate normal respiratory variation, augmentation and compressibility. Color flow is also seen within the posterior tibial, pe roneal, greater saphenous and profunda veins. IMPRESSION: 1: No lower extremity deep venous thrombosis. Reviewed, dictated and finalized at location B.
--- NOTE | 2021-03-16 09:57 | ECG_ITS ---
Measurements Intervals [place] Rate: 101 P: 140 [place]: 198 QRS: -21 QRSD: 110 T: 0 QT: 352 QTc: 458 Interpretive Statements SINUS TACHYCARDIA LOW QRS VOLTAGE IN LIMB LEADS INFERIOR INFARCT, AGE INDETERMINATE BORDERLINE T WAVE ABNORMALITY- HIGH LATERAL LEADS ABNORMAL ECG Electronically Signed On 03-16-2021 12:14:35 CDT by Kendall Cameron D.O.
[2021-03-16 10:07] LABS: Basophils Percent Auto 0.3 % (0.2-1.2); Eosinophils Absolute Auto 0.1 K/mm3 (0-0.3); Eosinophils Percent Auto 1.5 % (0-4.4); Hematocrit 28.5 % (42.0-52.0); Immature Granulocyte Absolute 0.01 K/mm3 (0.00-0.031); Immature Granulocyte Percent A 0.3 % (0-0.5); Lymphocytes Absolute Auto 0.39 K/mm3 (0.9-3.2); Lymphocytes Percent Auto 9.9 % (18.3-44.2); Mean Corpuscular HGB Conc 31.6 g/dl (32-36); Mean Corpuscular Hemoglobin 31.3 pg (26-34); Mean Platelet Volume 10.5 fl (7.4-10.4); Monocytes Absolute Auto 0.3 K/mm3 (0.1-0.6); Monocytes Percent Auto 8.6 % (2.6-8.5); Neutrophils Absolute Auto 3.1 K/mm3 (1.3-6.7); Neutrophils Percent Auto 79.4 % (45.5-73.1); Platelet Count Result 98 k/mm3 (150-375); Red Blood Count 2.88 M/mm3 (4.6-6.20); Red Cell Distribution Width 15.7 % (11.5-14.5)
[2021-03-16 10:17] LABS: Anion Gap 3 mmol/L (8-16); Blood Urea Nitrogen 10 mg/dL (9-20); Calcium 8.5 mg/dL (8.4-10.2); Carbon Dioxide 28 mmol/L (22-30); Chloride 100 mmol/L (98-107); Estimated CRCL calculation 100 ml/min; Estimated Glomerular Filt Rate > 60; Glucose 102 mg/dL (75-110); INR 1.1; Partial Thromboplastin Time 27.2 SECONDS (22.3-36.8); Potassium 4.5 mmol/L (3.4-5.0); Prothrombin Time 14.7 Seconds (11.1-14.7); Sodium 131 mmol/L (137-145)
[2021-03-16 10:29] LABS: NT Pro B Type Natriuretic Pept 35 pg/mL (5-100); Troponin I < 0.012 ng/mL (0.000-0.034)
--- NOTE | 2021-03-16 12:15 | ED.EXTPRO ---
HPI - Extremity Problem General Chief complaint: Extremity Problem,Nontraumatic Stated complaint: leg swelling Time Seen by Provider: 03/16/21 11:11 History of Present Illness HPI Narrative: 20 yo male with multiple medical problems comes to the ED for leg swelling. He was recently hospitalized for respiratory failure. After the hospitalization he was in rehab. While in rehab he was getting his legs wrapped. He was just got discharged back home and now he has bilateral leg swelling. It is much worse on the right. He has mild discomfort and some mild weeping wounds to the leg. He is not sure how he got these. No chest pain, SOB, fever. Related Data Home Medications Medication Instructions Recorded Confirmed albuterol sulfate 90 mcg/actuation 1 inh INHALATION Q4-6H PRN 11/23/20 02/12/21 aerosol inhaler doxepin 25 mg capsule 25 mg PO DAILY 11/23/20 02/12/21 irbesartan 150 mg tablet 150 mg PO DAILY 11/23/20 02/12/21 oxycodone 5 mg tablet 5 mg PO TID PRN 11/23/20 02/12/21 phenytoin sodium extended 100 mg 200 mg PO BID 11/23/20 02/12/21 capsule ropinirole 1 mg tablet 1 mg PO TID 11/23/20 02/12/21 zolpidem 10 mg tablet 5 mg PO HS PRN 11/23/20 02/12/21 acetaminophen 650 mg PO TID 02/12/21 02/12/21 celecoxib [Celebrex] 200 mg PO BID 02/12/21 02/12/21 diclofenac sodium 75 mg PO BID 02/12/21 02/12/21 ergocalciferol (vitamin D2) 50,000 unit PO WEEKLY 02/12/21 02/12/21 polyethylene glycol 3350 [Miralax] 17 g PO DAILY 02/12/21 02/12/21 senna-docusate sodium 1 tablet PO BID 02/12/21 02/12/21 Allergies Allergy/AdvReac Type Severity Reaction Status Date / Time hydromorphone Allergy Mild TARDIVE Verified 03/16/21 11:19 DYSKINESIA alprazolam Allergy Unknown Unknown Verified 03/16/21 11:19 codeine Allergy Unknown Unknown Verified 03/16/21 11:19 iodine Allergy Unknown Unknown Verified 03/16/21 11:19 Review of Systems Review of Systems: All systems reviewed & are unremarkable except as noted in HPI and below Constitutional: Constitutional: Denies chills and Denies fever(s) Eyes: Eyes: Reports no additional eye complaints ENT: Reports system reviewed and no additional complaints, except as documented Cardiovascular: Cardiovascular: Denies chest pain Respiratory: Respiratory: Denies dyspnea Gastrointestinal: Gastrointestinal: Denies abdominal pain, Denies nausea and Denies vomiting Genitourinary: Genitourinary: Reports no additional male genitourinary complaints Musculoskeletal: Musculoskeletal: Denies back pain Neurologic: Denies confusion, Denies dizziness and Denies weakness [facility] Past Medical History Medical History Acute blood loss anemia Cirrhosis Depression Hypertension Osteoarthritis of spine with radiculopathy, lumbar region Other abnormal glucose Pain of right hip joint Pancytopenia Primary osteoarthritis involving multiple joints Recurrent occipital headache Right groin pain Seizure disorder Seizures Special screening for malignant neoplasm of prostate Thrombocytopenia Tourette syndrome Trochanteric bursitis of right hip UGIB (upper gastrointestinal bleed) Unilateral inguinal hernia without obstruction or gangrene, recurrent URI, acute Surgical History Surgical History History of back surgery April 2020 Family History Family History Father Acute myocardial infarction Hypertension Mother Family history of thyroid disease Family history of obesity Acute myocardial infarction Sibling Brain aneurysm Other Cerebrovascular accident Family history of cardiovascular disease Social History Social History Smoking packs per day: 2 Smoking cigarettes per day: 40.0 Years smoked: 37 Smoking pack-years: 74.00 Smoking status: Former smoker Smoking end date:
[2021-03-16] MEDS: CEPHALEXIN 500 MG CAPSULE PO (13:51)
== END 2021-03-16 13:52 | disposition home or self-care (01) ==
PROVIDERS: Emergency Medicine; Emergency Provider Emergency Medicine; PCP Emergency Medicine
DX: L03.115 Cellulitis of right lower limb (principal); K74.60 Unspecified cirrhosis of liver; I10 Essential (primary) hypertension; M47.26 Other spondylosis with radiculopathy, lumbar region; G40.909 Epilepsy, unspecified, not intractable, without status epilepticus; F95.2 Tourette's disorder; R00.0 Tachycardia, unspecified; R94.31 Abnormal electrocardiogram [ECG] [EKG]; R91.8 Other nonspecific abnormal finding of lung field; Z87.891 Personal history of nicotine dependence
CPT/HCPCS: 36415; 71046; 80048; 83880; 84484; 85025; 85610; 85730; 93005; 93971; 99284; A9270

== ENCOUNTER → 2021-03-22 01:25 | Outpatient (CLI) | payer MEDICARE, SELFPAY ==
[2021-03-22 19:15] LABS: SARS-CoV-2 RNA PCR Negative
== END ==
PROVIDERS: PCP Emergency Medicine; Visit Provider Internal Medicine Critical Care Medicine
DX: R68.89 Other general symptoms and signs (principal); Z20.822 Contact with and (suspected) exposure to COVID-19
CPT/HCPCS: C9803; U0003; U0005

== ENCOUNTER 2021-03-24 10:36 | Outpatient (CLI) | payer MEDICARE, SELFPAY ==
--- NOTE | 2021-03-26 12:35 | WPDSLEEPSTUD ---
Sleep Study Ordering Provider: Zoie Greene, Interpreting Physician: Mara Kellogg MD Sleep Study Type: BiPAP Titration Height: 1.73 m Weight: 108.862 kg Body Mass Index: 36.5 Neck Circumference (inches): 17.5 [place]: 1 Reason for Sleep Study Basic sleep study 12/31/2020 : mild obstructive sleep apnea with an AHI of 6.5, extremely high in REM 33.8, desaturation to 79%. He presents now for CPAP/BiPAP titration. Sleep History Marco Antonio Shirley is a 70 year old man who wakes up frequently during the night. He constantly snores and is constantly loud enough that other people complain about it. He occasionally awakens at night with heartburn, belching or coughing. He rarely awakens from sleep feeling short of breath. He does not have trouble sleeping with a cold. He does not gasp for breath at night. He frequently has breathing problems at night reported to him by his . He occasionally sweats excessively at night. He occasionally notices his heart pounding irregularly at night. He does not fall asleep during the day, does not fall asleep involuntarily, while driving. He does not fall asleep while exerting physical effort. He does not have loss of muscle tone was strong emotion. He does not have daytime difficulties due to excessive sleepiness, he is retired. He does not feel paralyzed on waking or falling asleep. He does not have vivid dreamlike scenes upon awakening or falling asleep. He rarely feels afraid to go to sleep. He does not have nightmares. He does not remember his dreams. He rarely has racing thoughts. He does not feel sad or depressed. He frequently has anxiety. He frequently has muscular tension. He rarely notices parts of his body jerking. He frequently kicks at night, frequently has crawling and aching feelings in his legs and frequently has leg pain at night. He does not have morning jaw pain or grind his teeth during sleep. He rarely is bothered by pain during the day. He occasionally is awakened by pain at night. He frequently wakes up feeling stiff in the morning with sore achy muscles and pain in the neck and spine. He has memory problems, seizures, dizziness, he take sedatives and he has a history of alcoholism. His normal bedtime is 11:30 p.m. taking 30 minutes to fall asleep, typically waking twice at night to urinate. He stays awake for 5-10 minutes before returning to sleep. He wakes up in the morning between 6:30 and 7:00 a.m.. He estimates normally getting 6.5 to 7 hours of sleep each night. Weekend schedule is the same. He does not generally take naps. He generally feels good when he wakes up in the morning. Habits: Quit smoking 15 years ago. Caffeine 4 beverages a day. Alcohol 4 beverages a day. FORMERLY [facility], [facility] Past Medical History Medical History (Updated 03/26/21 @ 12:58 by Mara Kellogg MD) Acute blood loss anemia Cirrhosis Depression Hypertension Obstructive sleep apnea (~12/2020) Osteoarthritis of spine with radiculopathy, lumbar region Other abnormal glucose Pain of right hip joint Pancytopenia Primary osteoarthritis involving multiple joints Recurrent occipital headache Right groin pain Seizure disorder Seizures Special screening for malignant neoplasm of prostate Thrombocytopenia Tourette syndrome Trochanteric bursitis of right hip UGIB (upper gastrointestinal bleed) Unilateral inguinal hernia without obstruction or gangrene, recurrent URI, acute Surgical History Surgical History History of back surgery April 2020 Family History Family History Father Acute myocardial infarction Hypertension Mother Family history of thyroid disease Family history of obesity Acute myocardial infarction Sibling Brain aneurysm Other Cerebrovascular accident Family history of cardiovascular disease Social History Social History (Reviewed 03/26/21 @ 12:37
[2021-03-26 16:11] VITALS: BMI 36.5
== END 2021-03-24 10:37 | disposition home or self-care (01) ==
LOC: ANHCSM 10:36
PROVIDERS: PCP Emergency Medicine; Visit Provider Internal Medicine Pulmonary Disease
DX: G47.30 Sleep apnea, unspecified (principal); G47.33 Obstructive sleep apnea (adult) (pediatric); E66.9 Obesity, unspecified; Z68.36 Body mass index [BMI] 36.0-36.9, adult
CPT/HCPCS: 95811

== ENCOUNTER 2021-04-28 07:49 | Outpatient (CLI) | payer MEDICARE, SELFPAY ==
[2021-04-28 08:33] LABS: Basophils Percent Auto 0.8 % (0.2-1.2); Eosinophils Absolute Auto 0.1 K/mm3 (0-0.3); Eosinophils Percent Auto 3.9 % (0-4.4); Hemoglobin 12.8 g/dL (14.0-18.0); Immature Granulocyte Absolute 0.01 K/mm3 (0.00-0.031); Immature Granulocyte Percent A 0.3 % (0-0.5); Immature Platelet Fraction Pct 3.6 % (0.9-11.2); Lymphocytes Absolute Auto 0.57 K/mm3 (0.9-3.2); Lymphocytes Percent Auto 15.7 % (18.3-44.2); Mean Corpuscular Hemoglobin 30.4 pg (26-34); Mean Platelet Volume 11.2 fl (7.4-10.4); Monocytes Absolute Auto 0.5 K/mm3 (0.1-0.6); Neutrophils Absolute Auto 2.4 K/mm3 (1.3-6.7); Neutrophils Percent Auto 66.3 % (45.5-73.1); Platelet Count Result 103 k/mm3 (150-375); Red Blood Count 4.21 M/mm3 (4.6-6.20); Red Cell Distribution Width 14.5 % (11.5-14.5); White Blood Count 3.6 K/mm3 (4.5-10.0)
[2021-04-28 08:37] LABS: Add Urine Microscopic? NO; Appearance Urine Clear (Clear); Bilirubin Urine Negative (Negative); Blood Urine Negative (Negative); Color Urine Yellow (Yellow); Glucose Urine UA Negative (Negative); Ketones Urine Negative (Negative); Leukocyte Esterase Ur Negative LEU/UL (Negative); Nitrate Urine Negative (Negative); Protein Urine Negative (Negative); Urobilinogen Urine Negative mg/dL (<2.0)
[2021-04-28 08:52] LABS: Alanine Aminotransferase 20 U/L (4-50); Albumin Level 3.9 g/dL (3.5-5.1); Alkaline Phosphatase 159 U/L (38-126); Anion Gap 6 mmol/L (8-16); Aspartate Amino Transferase 36 U/L (17-59); Bilirubin,Total 0.4 mg/dL (0.2-1.3); Blood Urea Nitrogen 9 mg/dL (9-20); Calcium 9.3 mg/dL (8.4-10.2); Carbon Dioxide 30 mmol/L (22-30); Chloride 104 mmol/L (98-107); Cholesterol 191 mg/dL (0-200); Estimated Glomerular Filt Rate > 60; Glucose 112 mg/dL (75-110); LDL Cholesterol Direct 58 mg/dL; Phosphorus 3.4 mg/dL (2.5-4.5); Potassium 3.7 mmol/L (3.4-5.0); Sodium 140 mmol/L (137-145); Triglycerides 50 mg/dL (<150)
[2021-04-28 09:06] LABS: HDL Direct 114 mg/dL
[2021-04-28 09:09] LABS: Phenytoin Dilantin 7 ug/mL (10-20)
[2021-04-28 09:13] LABS: Prostate Specific Antigen 1.9 ng/mL (< OR = 4.0)
[2021-04-28 09:17] LABS: Iron 55 ug/dL (49-181)
[2021-04-28 09:27] LABS: Percent Iron Saturation 19 % (20-50)
[2021-04-28 09:31] LABS: Vitamin D 25 Hydroxy 47.2 ng/mL
[2021-04-28 09:49] LABS: Folic Acid > 20.0 ng/mL (2.76->20)
[2021-04-28 10:04] LABS: HIV 1/2 Ab P24 Ag Result Negative (Negative)
[2021-04-30 15:39] LABS: Hepatitis C RNA, Quant PCR <15 IU/mL
== END 2021-04-28 07:50 | disposition home or self-care (01) ==
PROVIDERS: PCP Emergency Medicine; Visit Provider Emergency Medicine
DX: B19.20 Unspecified viral hepatitis C without hepatic coma (principal); D64.9 Anemia, unspecified; D69.6 Thrombocytopenia, unspecified; F13.20 Sedative, hypnotic or anxiolytic dependence, uncomplicated; G25.81 Restless legs syndrome; G40.909 Epilepsy, unspecified, not intractable, without status epilepticus; G47.00 Insomnia, unspecified; H10.32 Unspecified acute conjunctivitis, left eye; I10 Essential (primary) hypertension; I50.9 Heart failure, unspecified; I86.4 Gastric varices; J43.9 Emphysema, unspecified; J44.1 Chronic obstructive pulmonary disease with (acute) exacerbation; K70.31 Alcoholic cirrhosis of liver with ascites; K74.60 Unspecified cirrhosis of liver; L03.115 Cellulitis of right lower limb; N40.1 Benign prostatic hyperplasia with lower urinary tract symptoms; R06.00 Dyspnea, unspecified
CPT/HCPCS: 36415; 80061; 80069; 80076; 80185; 81003; 82306; 82607; 82728; 82746; 83540; 83550; 83735; 84153; 84443; 85025; 85055; 86703; 87522; G0432

== ENCOUNTER 2022-01-20 08:34 | Outpatient (CLI) | payer MEDICARE, SELFPAY ==
--- NOTE | ~2022-01-20 | CT_ITS ---
EXAMINATION:CT lung screening DATE: 01/20/2022 08:46 INDICATION: Personal history of nicotine dependence. 74 pack year history. TECHNIQUE: Computed tomography (CT) of the chest was performed without intravenous contrast. Automate d exposure control and iterative reconstruction technique were employed. The dose-length product (DLP ) was 326.45 mGy-cm. COMPARISON: Chest CT 11/07/2020 FINDINGS: There is mild emphysema. There is mild atelectasis bilaterally. There are new mild groundgl ass opacities in the lower lobes and lingula, which may be mild pulmonary edema or atypical pneumonia . No pleural effusion. The heart size is normal. There are coronary artery calcifications. No pericar dial effusion. The liver demonstrates surface nodularity, consistent with cirrhosis. There are change s of cholecystectomy. There are changes of posterior fusion procedure in thoracolumbar spine. There a re multiple mild chronic compression fractures in the spine. IMPRESSION: 1. Lung-RADS category 2: Benign appearance or behavior. Continue annual screening with noncontrast lo w-dose chest CT in 12 months. 2. Mild groundglass opacities in the lower lobes and lingula, which may be mild pulmonary edema or at ypical pneumonia. 3. Cirrhosis of the liver. Reviewed, dictated and finalized at location A. NG COVERER IMPRESSION: 1. Lung-RADS category 2: Benign appearance or behavior. Continue annual screeni ng with noncontrast low-dose chest CT in 12 months. 2. Mild groundglass opacities in the lower lobes and lingula, which may be mild pulmonary edema or atypical pneumonia. 3. Cirrhosis of the liver.
== END 2022-01-20 08:35 | disposition home or self-care (01) ==
LOC: ANHIMG 08:35
PROVIDERS: Visit Provider Nurse Practitioner Family
DX: Z12.2 Encounter for screening for malignant neoplasm of respiratory organs (principal); Z87.891 Personal history of nicotine dependence
CPT/HCPCS: 71271

== ENCOUNTER 2022-05-04 15:08 | Inpatient (IN) | payer MEDICARE, SELFPAY ==
--- NOTE | ~2022-05-04 | XR_ITS ---
EXAMINATION: XR chest 2V DATE: 05/04/2022 16:24 INDICATION: Preoperative evaluation. Personal history of nicotine dependence. Bibasilar lung disease on prior CT. TECHNIQUE: PA and lateral views of the chest were obtained. COMPARISON: Chest radiograph dated 03/16/[address] dated 01/20/2022 FINDINGS: No change in streaky opacities in the bilateral lower lung zones and given stability and appearance o n CT would strongly favor atelectasis over pneumonia. No pleural effusion or pneumothorax. The cardio mediastinal silhouette is normal. Chronic mild T6 and T9 compression fractures. Partially visualized instrumented posterior spinal fusion with bilateral vertical paul and pedicle screw fixation beginning at T10 and extending to beyond the inferior margin of the [id number] which is at the level of L2- L3. Cholecystectomy clips in the right upper quadrant. IMPRESSION: 1. Stable appearance of chronic streaky opacities in bilateral lower lung zones and favor atelectasis over pneumonia. Reviewed, dictated and finalized at location A.
[2022-05-04 15:09] VITALS: BP 181/78; PULSE 66; RESP 19; TEMP 36.3; O2SAT 100
--- NOTE | 2022-05-04 15:13 | PC.NURSE ---
Pt states he was in [facility] on 04/13 and a dog wrapped his leash around his leg/back of knee. States he was given rx for infection. seen at dr pike office today and was sent over for admission
--- NOTE | 2022-05-04 15:29 | ECG_ITS ---
Measurements Intervals [place] Rate: 65 P: 44 NC: 189 QRS: 20 QRSD: 93 T: 38 QT: 401 QTc: 419 Interpretive Statements SINUS RHYTHM SEPTAL MYOCARDIAL INFARCTION , PROBABLY OLD [40+ ms Q WAVE IN V1/V2] COMPARED TO ECG 03/16/2021 11:12:31 SINUS RHYTHM NOW PRESENT Electronically Signed On 05-04-2022 21:19:27 CDT by Jinny Cline MD
[2022-05-04 15:47] LABS: Basophils Percent Auto 0.6 % (0.2-1.2); Eosinophils Absolute Auto 0.2 K/mm3 (0-0.3); Hematocrit 35.6 % (42.0-52.0); Hemoglobin 11.9 g/dL (14.0-18.0); Immature Granulocyte Absolute 0.01 K/mm3 (0.00-0.031); Immature Granulocyte Percent A 0.2 % (0-0.5); Lymphocytes Absolute Auto 0.68 K/mm3 (0.9-3.2); Lymphocytes Percent Auto 13.8 % (18.3-44.2); Mean Corpuscular HGB Conc 33.4 g/dl (32-36); Mean Corpuscular Hemoglobin 32.9 pg (26-34); Mean Corpuscular Volume 98.3 fl (80-100); Mean Platelet Volume 9.5 fl (7.4-10.4); Monocytes Absolute Auto 0.6 K/mm3 (0.1-0.6); Monocytes Percent Auto 11.5 % (2.6-8.5); Neutrophils Absolute Auto 3.5 K/mm3 (1.3-6.7); Neutrophils Percent Auto 70.9 % (45.5-73.1); Platelet Count Result 123 k/mm3 (150-375); Red Blood Count 3.62 M/mm3 (4.6-6.20); Red Cell Distribution Width 14.2 % (11.5-14.5); White Blood Count 4.9 K/mm3 (4.5-10.0)
--- NOTE | 2022-05-04 15:56 | PM.CNOR ---
Assessment and Plan Assessment and plan (1) Septic prepatellar bursitis of right knee: Code(s): M71.161 - Other infective bursitis, right knee Status: Acute Plan Plan debridement septic right prepatellar bursa on May 05, 2022 pending medical clearance. Please see my note of from the office on May 04, 2022 for details. History of Present Illness HPI Consult date: 05/04/22 Chief complaint: R knee infxn Narrative: 71-year-old male with septic right prepatellar bursa. This will need to be debrided surgically. Please see my office note of May 04, 2022 for details. [facility] Past Medical History Medical History (Updated 05/04/22 @ 14:15 by Mao Dangelo MD) Acute blood loss anemia Arthritis Cirrhosis Depression GERD (gastroesophageal reflux disease) Hypertension Obstructive sleep apnea (~12/2020) Osteoarthritis of spine with radiculopathy, lumbar region Other abnormal glucose Pain of right hip joint Pancytopenia Primary osteoarthritis involving multiple joints Recurrent occipital headache Right groin pain Seizure disorder Seizures Septic prepatellar bursitis of right knee Special screening for malignant neoplasm of prostate Thrombocytopenia Tourette syndrome Trochanteric bursitis of right hip UGIB (upper gastrointestinal bleed) Unilateral inguinal hernia without obstruction or gangrene, recurrent URI, acute Surgical History Surgical History (Updated 05/04/22 @ 14:15 by Mao Dangelo MD) History of back surgery April 2020 History of elbow surgery History of knee surgery right prepatellar bursectomy 2011 Family History Family History Father Acute myocardial infarction Hypertension Mother Family history of thyroid disease Family history of obesity Acute myocardial infarction Hypertension Sibling Brain aneurysm Cancer Other Cerebrovascular accident Family history of cardiovascular disease Social History Social History Smoking packs per day: 2 Smoking cigarettes per day: 40.0 Years smoked: 37 Smoking pack-years: 74.00 Smoking status: Never smoker Smoking end date: 11/20/06 Alcohol intake: never Spiritual care concerns: No Meds Home Medications and Allergies Home Medications Medication Instructions Recorded Confirmed Type ergocalciferol (vitamin D2) 50,000 50,000 unit PO WEEKLY 02/12/21 05/04/22 History unit tablet albuterol sulfate 2.5 mg/3 mL 2.5 mg (3 mL) inhalation Q6H PRN 03/16/21 05/04/22 Rx (0.083 %) solution for nebulization shortness of breath or wheezing #360 mL irbesartan 150 mg tablet 150 mg PO DAILY #30 tabs 03/21/21 05/04/22 Rx phenytoin sodium extended 100 mg 200 mg PO BID #30 caps 03/21/21 05/04/22 Rx capsule (Dilantin Extended) ropinirole 1 mg tablet 1 mg PO TID #30 tabs 03/21/21 05/04/22 Rx zolpidem 10 mg tablet (Ambien) 5 mg PO HS PRN Insomnia #30 tabs 03/21/21 05/04/22 Rx albuterol sulfate 90 mcg/actuation 1 inh inhalation Q4-6H PRN 06/28/21 05/04/22 Rx aerosol inhaler (Ventolin HFA) Shortness Of Breath #8.5 grams amlodipine 5 mg tablet 5 mg PO DAILY 02/16/22 05/04/22 History gabapentin 300 mg capsule 300 mg PO TID 02/16/22 05/04/22 History oxycodone 5 mg capsule 5 mg PO Q8H PRN Pain 02/16/22 05/04/22 History sertraline 100 mg tablet 100 mg PO DAILY 02/16/22 05/04/22 History umeclidinium 62.5 mcg/actuation 1 inh inhalation DAILY 02/16/22 05/04/22 History blister powder for inhalation Allergies Allergy/AdvReac Type Severity Reaction Status Date / Time hydromorphone Allergy Mild TARDIVE Verified 05/04/22 13:23 DYSKINESIA alprazolam Allergy Unknown Unknown Verified 05/04/22 13:23 bee venom protein (honey bee) Allergy Unknown unknown Verified 05/04/22 13:23 codeine Allergy Unknown Unknown Verified 05/04/22 13:23 iodine Allergy Unknown Unknown Verified 05/04/22 13:23 Vital Signs Vital Signs - 24
[2022-05-04 16:01] LABS: INR 1.2; Partial Thromboplastin Time 30.5 SECONDS (22.3-36.8); Prothrombin Time 14.8 Seconds (11.1-14.7)
--- NOTE | 2022-05-04 16:03 | ED.LOWEXIN ---
HPI - Extremity Injury (Lower) General Chief Complaint: Extremity Injury, Lower Stated Complaint: R knee infxn Source: patient History of Present Illness HPI Narrative: Patient presents with right knee pain. Patient ports that pain for the past few weeks with increasing swelling and warmth. He was [place] seen in emergency room [place] was traveling is recommended that he be admitted for IV antibiotics but since he was not close to home that he was discharged with oral antibiotics as he declined admission. Antibiotics do not appear to help he had increasing redness and had appointment with his orthopedic surgeon in 2 days. Orthopedic surgeon concern for a septic joint so he was referred to the ER for admission and surgical interventions. Patient's pain is achy, constant and worse with moving his joint. Denies any fevers or chills denies nausea vomiting or diarrhea Related Data Home Medications Medication Instructions Recorded Confirmed ergocalciferol (vitamin D2) 50,000 50,000 unit PO WEEKLY 02/12/21 05/04/22 unit tablet amlodipine 5 mg tablet 5 mg PO DAILY 02/16/22 05/04/22 gabapentin 300 mg capsule 300 mg PO TID 02/16/22 05/04/22 oxycodone 5 mg capsule 5 mg PO Q8H PRN Pain 02/16/22 05/04/22 sertraline 100 mg tablet 100 mg PO DAILY 02/16/22 05/04/22 umeclidinium 62.5 mcg/actuation 1 inh inhalation DAILY 02/16/22 05/04/22 blister powder for inhalation Allergies Allergy/AdvReac Type Severity Reaction Status Date / Time hydromorphone Allergy Mild TARDIVE Verified 05/04/22 13:23 DYSKINESIA alprazolam Allergy Unknown Unknown Verified 05/04/22 13:23 bee venom protein (honey bee) Allergy Unknown unknown Verified 05/04/22 13:23 codeine Allergy Unknown Unknown Verified 05/04/22 13:23 iodine Allergy Unknown Unknown Verified 05/04/22 13:23 Review of Systems Review of Systems: CONSTITUTIONAL: Denies fever, chills, or sweats. EYES: Denies visual changes, redness, or discharge. ENT: Denies rhinorrhea, congestion, sore throat, or otalgia. CARDIOVASCULAR: Denies chest pain, palpitations, or edema. RESPIRATORY: Denies cough or dyspnea. GASTROINTESTINAL: Denies abdominal pain, nausea, vomiting, or diarrhea. GENITOURINARY: Denies dysuria or hematuria. SKIN: Denies rash or itching. MUSCULOSKELETAL: Denies back pain, or myalgia. NEUROLOGIC: Denies headache, numbness, dizziness, or weakness. PSYCHIATRIC: Denies anxiety or depression. All systems reviewed & are unremarkable except as noted in HPI and below PMFSH Past Medical History Medical History Acute blood loss anemia Arthritis Cirrhosis Depression GERD (gastroesophageal reflux disease) Hypertension Obstructive sleep apnea (~12/2020) Osteoarthritis of spine with radiculopathy, lumbar region Other abnormal glucose Pain of right hip joint Pancytopenia Primary osteoarthritis involving multiple joints Recurrent occipital headache Right groin pain Seizure disorder Seizures Septic prepatellar bursitis of right knee Special screening for malignant neoplasm of prostate Thrombocytopenia Tourette syndrome Trochanteric bursitis of right hip UGIB (upper gastrointestinal bleed) Unilateral inguinal hernia without obstruction or gangrene, recurrent URI, acute Surgical History Surgical History History of back surgery April 2020 History of elbow surgery History of knee surgery right prepatellar bursectomy 2011 Family History Family History Father Acute myocardial infarction Hypertension Mother Family history of thyroid disease Family history of obesity Acute myocardial infarction Hypertension Sibling Brain aneurysm Cancer Other Cerebrovascular accident Family history of cardiovascular disease Social History Social History Smoking pa
[2022-05-04 16:05] LABS: Alanine Aminotransferase 34 U/L (6-50); Albumin Level 3.8 g/dL (3.5-5.1); Alkaline Phosphatase 167 U/L (38-126); Anion Gap 4 mmol/L (8-16); Aspartate Amino Transferase 53 U/L (17-59); Bilirubin,Total 0.6 mg/dL (0.2-1.3); Blood Urea Nitrogen 16 mg/dL (9-20); CRP 2.3 mg/dL (<1.0); Calcium 8.8 mg/dL (8.4-10.2); Carbon Dioxide 26 mmol/L (22-30); Chloride 103 mmol/L (98-107); Estimated CRCL calculation 99 ml/min; Estimated Glomerular Filt Rate > 60; Glucose 89 mg/dL (65-110); Potassium 4.4 mmol/L (3.4-5.0); Sodium 133 mmol/L (137-145)
--- NOTE | 2022-05-04 16:36 | WPDANESEPP ---
Anes - Eval Pre Procedure Procedure: Operation Date: 05/05/22 16:00 Proposed Procedures p Washout Right Prepatellar Bursa - Mao Dangelo MD Date/Time: 05/04/22 16:36 Surgeon: Antolin Pre Op Diagnosis: Septic Joint Patient Data Age: 71 Gender: M Height: 1.73 m Weight: 109.5 kg Last Vital Signs Temp 97.4 F L 05/04/22 15:09 Pulse 66 05/04/22 15:09 Resp 19 05/04/22 15:09 BP 181/78 H 05/04/22 15:09 Pulse Ox 100 05/04/22 15:09 O2 Del Method Room Air 05/04/22 15:09 Allergies Allergy/AdvReac Type Severity Reaction Status Date / Time hydromorphone Allergy Mild TARDIVE Verified 05/04/22 13:23 DYSKINESIA alprazolam Allergy Unknown Unknown Verified 05/04/22 13:23 bee venom protein (honey bee) Allergy Unknown unknown Verified 05/04/22 13:23 codeine Allergy Unknown Unknown Verified 05/04/22 13:23 iodine Allergy Unknown Unknown Verified 05/04/22 13:23 Home Medications Medication Instructions Recorded Confirmed Type ergocalciferol (vitamin D2) 50,000 50,000 unit PO WEEKLY 02/12/21 05/04/22 History unit tablet albuterol sulfate 2.5 mg/3 mL 2.5 mg (3 mL) inhalation Q6H PRN 03/16/21 05/04/22 Rx (0.083 %) solution for nebulization shortness of breath or wheezing #360 mL irbesartan 150 mg tablet 150 mg PO DAILY #30 tabs 03/21/21 05/04/22 Rx phenytoin sodium extended 100 mg 200 mg PO BID #30 caps 03/21/21 05/04/22 Rx capsule (Dilantin Extended) ropinirole 1 mg tablet 1 mg PO TID #30 tabs 03/21/21 05/04/22 Rx zolpidem 10 mg tablet (Ambien) 5 mg PO HS PRN Insomnia #30 tabs 03/21/21 05/04/22 Rx albuterol sulfate 90 mcg/actuation 1 inh inhalation Q4-6H PRN 06/28/21 05/04/22 Rx aerosol inhaler (Ventolin HFA) Shortness Of Breath #8.5 grams amlodipine 5 mg tablet 5 mg PO DAILY 02/16/22 05/04/22 History gabapentin 300 mg capsule 300 mg PO TID 02/16/22 05/04/22 History oxycodone 5 mg capsule 5 mg PO Q8H PRN Pain 02/16/22 05/04/22 History sertraline 100 mg tablet 100 mg PO DAILY 02/16/22 05/04/22 History umeclidinium 62.5 mcg/actuation 1 inh inhalation DAILY 02/16/22 05/04/22 History blister powder for inhalation Laboratory Tests 05/04/22 05/04/22 05/04/22 15:36 15:36 15:37 WBC 4.9 K/mm3 K/mm3 (4.5-10.0) RBC 3.62 M/mm3 L M/mm3 (4.6-6.20) Hgb 11.9 g/dL L g/dL (14.0-18.0) Hct 35.6 % L % (42.0-52.0) MCV 98.3 fl fl (80-100) MCH 32.9 pg pg (26-34) MCHC 33.4 g/dl g/dl (32-36) RDW 14.2 % % (11.5-14.5) Plt Count 123 k/mm3 L k/mm3 (150-375) MPV 9.5 fl fl (7.4-10.4) Immature Gran % (Auto) 0.2 % % (0-0.5) Neut % (Auto) 70.9 % % (45.5-73.1) Lymph % (Auto) 13.8 % L % (18.3-44.2) Mclean % (Auto) 11.5 % H % (2.6-8.5) Eos % (Auto) 3.0 % % (0-4.4) Baso % (Auto) 0.6 % % (0.2-1.2) Lymph # (Auto) 0.68 K/mm3 L K/mm3 (0.9-3.2) [place] # (Auto) 0.6 K/mm3 K/mm3 (0.1-0.6) Eos # (Auto) 0.2 K/mm3 K/mm3 (0-0.3) Baso # (Auto) 0.0 K/mm3 K/mm3 (0.0-0.1) Abs Immat Gran (auto) 0.01 K/mm3 K/mm3 (0.00-0.031) Absolute Neuts (auto) 3.5 K/mm3 K/mm3 (1.3-6.7) Absolute Nucleated RBC 0.0 K/mm3 K/mm3 (0.0-0.012) Nucleated RBC % 0.0 % % (0.0-0.2) ESR Pending PT 14.8 Seconds H Seconds (11.1-14.7) INR 1.2 APTT 30.5 SECONDS SECONDS (22.3-36.8) Sodium 133 mmol/L L mmol/L (137-145) Potassium 4.4 mmol/L mmol/L (3.4-5.0) Chloride 103 mmol/L mmol/L (98-107) Carbon Dioxide 26 mmol/L mmol/L (22-30) Anion Gap 4 mmol/L L mmol/L (8-16) BUN 16 mg/dL mg/dL (9-20) Creatinine 0.70 mg/dL mg/dL (0.7-1.3) Estim Creat Clear Calc 99 ml/min ml/min Estimated GFR > 60 (59 - ) Glucose 89 mg/dL mg/dL (65-110)
[2022-05-04 16:37] LABS: Erythrocyte Sedimentation Rate 67 mm/hr (0-20)
[2022-05-04 17:30] VITALS: BP 158/88; PULSE 78; RESP 18; TEMP 36.6; O2SAT 98
--- NOTE | 2022-05-04 17:45 | ADMGEN ---
This patient, Marco Antonio Shirley, was admitted to Medical Room 244-. Patient/family oriented to hospital policies and general routines including ID bracelet, bed and alarms, visiting hours, pain management, procedures, bathroom and other care routines, personal items, smoking policy, room service/diet, and visiting hours. Information on how to activate the Rapid Response Team has been discussed. Patient/Family are encouraged to report perceived risks to care and to ask questions if they do not understand what they are told or what they should do.
[2022-05-04 18:10] VITALS: BP 174/90
[2022-05-04 19:15] VITALS: BP 169/69; PULSE 66; RESP 18; TEMP 36.1; O2SAT 100
[2022-05-04] MEDS: SODIUM CHLORIDE 0.9% IV 1,000 ML 125 ML IV CONT (20:00)
--- NOTE | 2022-05-04 20:19 | PM.IMHP ---
H&P: HPI History of Present Illness Date/Time: Patient requires inpatient monitoring with expected length of stay to exceed 2 midnights for management of care. 05/04/22 20:19 Chief Complaint: Right knee infection Narrative: Mr. Shirley is a 71-year-old gentleman who presented to the emergency room after seeing his orthopedic surgeon today and being sent to emergency room for a right knee infection. Patient states that on 04/09 he was walking his dog and got caught up in the leash and fell onto his right knee. Patient states a few days later his knee became very swollen and he noticed a large minute erythema going up into his thigh. Patient states he went to emergency room in [place] where he was at that time and got 2 different antibiotics. Patient states he was having large amounts of purulent drainage from his knee and was having to change his gauze of to 4 times daily. Patient states that he finished both antibiotics and he did have improvement to his knee swelling and redness, but the swelling never totally went away. Patient states he went to see his orthopedic surgeon today and was sent to the hospital. Patient denies any fever chills at home. Patient states the amount of drainage that has been coming out of his knee is significantly decreased it is more of a serosanguineous drainage at this time. Patient states he has a known history of COPD, hypertension, obstructive sleep apnea, chronic back pain, seizure disorder, pancytopenia, and prostate cancer. Review of Systems Review of Systems: A 12 point review of systems was completed patient all pertinent positive and negative per HPI the remainder are unremarkable. [facility] Past Medical History Medical History Acute blood loss anemia Arthritis Cirrhosis Depression GERD (gastroesophageal reflux disease) Hypertension Obstructive sleep apnea (~12/2020) Osteoarthritis of spine with radiculopathy, lumbar region Other abnormal glucose Pain of right hip joint Pancytopenia Primary osteoarthritis involving multiple joints Recurrent occipital headache Right groin pain Seizure disorder Seizures Septic prepatellar bursitis of right knee Special screening for malignant neoplasm of prostate Thrombocytopenia Tourette syndrome Trochanteric bursitis of right hip UGIB (upper gastrointestinal bleed) Unilateral inguinal hernia without obstruction or gangrene, recurrent URI, acute Surgical History Surgical History History of back surgery April 2020 History of elbow surgery History of knee surgery right prepatellar bursectomy 2011 Family History Family History Father Acute myocardial infarction Hypertension Mother Family history of thyroid disease Family history of obesity Acute myocardial infarction Hypertension Sibling Brain aneurysm Cancer Other Cerebrovascular accident Family history of cardiovascular disease Social History Social History Smoking packs per day: 2 Smoking cigarettes per day: 40.0 Years smoked: 37 Smoking pack-years: 74.00 Smoking status: Former smoker Tobacco type: cigarettes Second hand tobacco smoke exposure: No Smoking end date: 11/20/06 Alcohol intake: former Substance use: never Substance use type: does not use Spiritual care concerns: No Meds Home Medications and Allergies Home Medications Medication Instructions Recorded Confirmed Type ergocalciferol (vitamin D2) 50,000 50,000 unit PO WEEKLY 02/12/21 05/04/22 History unit tablet albuterol sulfate 2.5 mg/3 mL 2.5 mg (3 mL) inhalation Q6H PRN 03/16/21 05/04/22 Rx (0.083 %) solution for nebulization shortness of breath or wheezing #360 mL irbesartan 150 mg tablet 150 mg PO DAILY #30 tabs 03/21/21 05/04/22 Rx phenytoin sodium exte
[2022-05-04] MEDS: PHENYTOIN SODIUM 100 MG EXTENDED RELEASE CAP 200 MG PO (21:06)
[2022-05-05] VITALS (12 sets, daily range): BP systolic 133–170; BP diastolic 66–99; PULSE 62–77; RESP 16–20; TEMP 36.2–37.4; O2SAT 94–100
[2022-05-05] MEDS: SODIUM CHLORIDE 0.9% IV 1,000 ML 125 ML IV CONT (02:08)
[2022-05-05 05:45] LABS: Basophils Percent Auto 0.2 % (0.2-1.2); Eosinophils Absolute Auto 0.2 K/mm3 (0-0.3); Eosinophils Percent Auto 3.6 % (0-4.4); Hematocrit 37.2 % (42.0-52.0); Hemoglobin 12.2 g/dL (14.0-18.0); Immature Granulocyte Absolute 0.01 K/mm3 (0.00-0.031); Immature Granulocyte Percent A 0.2 % (0-0.5); Lymphocytes Absolute Auto 0.53 K/mm3 (0.9-3.2); Lymphocytes Percent Auto 12.9 % (18.3-44.2); Mean Corpuscular HGB Conc 32.8 g/dl (32-36); Mean Corpuscular Hemoglobin 32.8 pg (26-34); Monocytes Absolute Auto 0.4 K/mm3 (0.1-0.6); Monocytes Percent Auto 10.5 % (2.6-8.5); Neutrophils Percent Auto 72.6 % (45.5-73.1); Platelet Count Result 115 k/mm3 (150-375); Red Blood Count 3.72 M/mm3 (4.6-6.20); Red Cell Distribution Width 14.3 % (11.5-14.5); White Blood Count 4.1 K/mm3 (4.5-10.0)
[2022-05-05 05:50] LABS: Anion Gap 3 mmol/L (8-16); Blood Urea Nitrogen 12 mg/dL (9-20); Calcium 8.7 mg/dL (8.4-10.2); Carbon Dioxide 27 mmol/L (22-30); Chloride 107 mmol/L (98-107); Estimated CRCL calculation 99 ml/min; Estimated Glomerular Filt Rate > 60; Glucose 103 mg/dL (65-110); Magnesium 1.9 mg/dL (1.6-2.3); Potassium 4.3 mmol/L (3.4-5.0); Sodium 137 mmol/L (137-145)
--- NOTE | 2022-05-05 07:49 | WPDANESEPPF ---
Anes - Initial Pre Proc Eval Procedure: Operation Date: 05/05/22 16:00 Proposed Procedures p Washout Right Prepatellar Bursa - Mao Dangelo MD Date/Time: 05/05/22 07:49 Surgeon: Carlitos Miranda MD Pre Op Diagnosis: Septic Joint Patient Data Age: 71 Gender: M Height: 1.73 m Weight: 109.5 kg Last Vital Signs Temp 36.2 C L 05/05/22 04:13 Pulse 62 05/05/22 04:13 Resp 17 05/05/22 04:13 BP 133/73 05/05/22 04:13 Pulse Ox 96 05/05/22 04:13 O2 Del Method Room Air 05/04/22 15:09 Allergies Allergy/AdvReac Type Severity Reaction Status Date / Time hydromorphone Allergy Mild TARDIVE Verified 05/04/22 17:57 DYSKINESIA alprazolam Allergy Unknown Unknown Verified 05/04/22 17:57 bee venom protein (honey bee) Allergy Unknown unknown Verified 05/04/22 17:57 codeine Allergy Unknown Unknown Verified 05/04/22 17:57 iodine Allergy Unknown Unknown Verified 05/04/22 17:57 Home Medications Medication Instructions Recorded Confirmed Type ergocalciferol (vitamin D2) 50,000 50,000 unit PO WEEKLY 02/12/21 05/04/22 History unit tablet albuterol sulfate 2.5 mg/3 mL 2.5 mg (3 mL) inhalation Q6H PRN 03/16/21 05/04/22 Rx (0.083 %) solution for nebulization shortness of breath or wheezing #360 mL irbesartan 150 mg tablet 150 mg PO DAILY #30 tabs 03/21/21 05/04/22 Rx phenytoin sodium extended 100 mg 200 mg PO BID #30 caps 03/21/21 05/04/22 Rx capsule (Dilantin Extended) ropinirole 1 mg tablet 1 mg PO TID #30 tabs 03/21/21 05/04/22 Rx zolpidem 10 mg tablet (Ambien) 5 mg PO HS PRN Insomnia #30 tabs 03/21/21 05/04/22 Rx albuterol sulfate 90 mcg/actuation 1 inh inhalation Q4-6H PRN 06/28/21 05/04/22 Rx aerosol inhaler (Ventolin HFA) Shortness Of Breath #8.5 grams amlodipine 5 mg tablet 5 mg PO DAILY 02/16/22 05/04/22 History gabapentin 300 mg capsule 300 mg PO TID 02/16/22 05/04/22 History oxycodone 5 mg capsule 5 mg PO Q8H PRN Pain 02/16/22 05/04/22 History sertraline 100 mg tablet 100 mg PO DAILY 02/16/22 05/04/22 History umeclidinium 62.5 mcg/actuation 1 inh inhalation DAILY 02/16/22 05/04/22 History blister powder for inhalation Laboratory Tests 05/04/22 05/04/22 05/04/22 15:36 15:36 15:37 WBC 4.9 K/mm3 K/mm3 (4.5-10.0) RBC 3.62 M/mm3 L M/mm3 (4.6-6.20) Hgb 11.9 g/dL L g/dL (14.0-18.0) Hct 35.6 % L % (42.0-52.0) MCV 98.3 fl fl (80-100) MCH 32.9 pg pg (26-34) MCHC 33.4 g/dl g/dl (32-36) RDW 14.2 % % (11.5-14.5) Plt Count 123 k/mm3 L k/mm3 (150-375) MPV 9.5 fl fl (7.4-10.4) Immature Gran % (Auto) 0.2 % % (0-0.5) Neut % (Auto) 70.9 % % (45.5-73.1) Lymph % (Auto) 13.8 % L % (18.3-44.2) [place] % (Auto) 11.5 % H % (2.6-8.5) Eos % (Auto) 3.0 % % (0-4.4) Baso % (Auto) 0.6 % % (0.2-1.2) Lymph # (Auto) 0.68 K/mm3 L K/mm3 (0.9-3.2) [place] # (Auto) 0.6 K/mm3 K/mm3 (0.1-0.6) Eos # (Auto) 0.2 K/mm3 K/mm3 (0-0.3) Baso # (Auto) 0.0 K/mm3 K/mm3 (0.0-0.1) Abs Immat Gran (auto) 0.01 K/mm3 K/mm3 (0.00-0.031) Absolute Neuts (auto) 3.5 K/mm3 K/mm3 (1.3-6.7) Absolute Nucleated RBC 0.0 K/mm3 K/mm3 (0.0-0.012) Nucleated RBC % 0.0 % % (0.0-0.2) ESR 67 mm/hr H mm/hr (0-20) PT 14.8 Seconds H Seconds (11.1-14.7) INR 1.2 APTT 30.5 SECONDS SECONDS (22.3-36.8) Sodium 133 mmol/L L mmol/L (137-145) Potassium 4.4 mmol/L mmol/L (3.4-5.0) Chloride 103 mmol/L mmol/L (98-107) Carbon Dioxide 26 mmol/L mmol/L (22-30) Anion Gap 4 mmol/L L mmol/L (8-16) BUN 16 mg/dL mg/dL (9-20) Creatinine 0.70 mg/dL mg/dL (0.7-1.3) Estim Creat Clear Calc 99 ml/min ml/min Estimated GFR > 60 (59 - ) Glucose
[2022-05-05] MEDS: GABAPENTIN 300 MG CAPSULE PO ×2 (08:48→17:50)
[2022-05-05] MEDS: IRBESARTAN 150 MG TABLET PO (08:49)
[2022-05-05] MEDS: SERTRALINE HCL 50 MG TABLET 100 MG PO (08:49)
[2022-05-05] MEDS: PHENYTOIN SODIUM 100 MG EXTENDED RELEASE CAP 200 MG PO ×2 (08:49→20:24)
[2022-05-05] MEDS: rOPINIRole HCL 1 MG TABLET PO ×2 (08:49→17:50)
[2022-05-05] MEDS: amLODIPine BESYLATE 5 MG TABLET PO (08:49)
--- NOTE | 2022-05-05 11:49 | PM.IMPN ---
Progress Note: A&P Assessment and Plan (1) Septic prepatellar bursitis of right knee: Code(s): M71.161 - Other infective bursitis, right knee Status: Acute Assessment and Plan: Orthopedic surgery has been consult and patient is to go to the operating room Continue IV antibiotics (2) Hypertension: Code(s): I10 - Essential (primary) hypertension Status: Acute Assessment and Plan: Monitor blood pressure Subjective Date/time seen: 05/05/22 11:49 Pain controlled no new complaints Exam Narrative: Constitutional: Patient is well-nourished in no acute distress. Patient is alert and oriented x3 HEENT: Moist mucous membranes. No scleral icterus. No lymphadenopathy. Neck: No carotid bruits noted no JVD noted Lungs: Lung sounds are clear to auscultation bilaterally. No accessory muscle use. No rhonchi, rales, or wheezes noted. Cardiovascular: Apical pulse is regular rate and rhythm. S1-S2 noted, no S3 or S4 noted. No gallops, murmurs, or rubs noted. Abdomen: Soft, round, and nontender. No palpable masses. Extremities: No edema. Nontender. Patient's right knee does have a large amount of swelling noted. There is a scabbed area and a small amount of serosanguineous drainage. There is some mild erythema. Skin: No rashes or lesions. Warm and dry. Patient has a scab noted to right knee Neurological: No focal neurological deficits. Cranial nerves II-XII grossly intact. Psychiatric: Cooperative, appropriate mood, and affect Objective Data Vital Signs Vital Signs: Vital Signs - 24 hr 05/04/22 15:09 05/04/22 17:30 05/04/22 18:10 Temperature 97.4 F L 97.8 F Pulse Rate 66 78 Respiratory Rate 19 18 Blood Pressure 181/78 H 158/88 H 174/90 H Pulse Oximetry 100 98 Oxygen Delivery Room Air 05/04/22 19:15 05/05/22 04:13 05/05/22 08:10 Temperature 96.9 F L 97.1 F L Pulse Rate 66 62 Respiratory Rate 18 17 Blood Pressure 169/69 H 133/73 Pulse Oximetry 100 96 Oxygen Delivery Room Air Intake/Output Intake/Output: Intake & Output 05/02/22 05/03/22 05/04/22 05/05/22 23:59 23:59 23:59 23:59 Intake Total 480 1810 Balance 480 1810 Meds/Results Medications: Active Medications Generic Name Dose Route Start Last Admin Trade Name Freq PRN Reason Stop Dose Admin Albuterol 2.5 mg 05/04/22 20:18 Albuterol Sulfate Neb 2.5 Mg/3 Ml Inh INHALATION Q6H PRN shortness of breath or wheezing Albuterol 1 puff 05/04/22 20:18 Albuterol Sulfate (*Sp) Aerosol 1 Puff INHALATION Q4-6H PRN Shortness Of Breath Amlodipine Besylate 5 mg 05/05/22 09:00 05/05/22 08:49 Amlodipine Besylate 5 Mg Tablet PO 5 mg DAILY ERICA Administration Ergocalciferol 50,000 unit 05/09/22 09:00 Ergocalciferol 50,000 Unit Capsule PO Mo@0900 ERICA Fentanyl Citrate 25 mcg 05/05/22 07:49 Fentanyl Citrate Inj (*Crx) 100 Mcg/2 Ml Vial IV PUSH Q2M PRN Pain Gabapentin 300 mg 05/05/22 09:00 05/05/22 08:48 Gabapentin 300 Mg Capsule PO 300 mg TID ERICA Administration Sodium Chloride 1,000 mls @ 125 mls/hr 05/04/22 16:30 05/05/22 02:08 Normal Saline Iv IV CONT 125 mls/hr .Q8H ERICA Administration Lactated Ringer's 1,000 mls @ 30 mls/hr 05/05/22 07:50 Lr - Lactated Ringers Iv IV CONT .Q24H ERICA Lactated Ringer's 1,000 mls @ 30 mls/hr 05/05/22 07:50 Lr - Lactated Ringers Iv IV CONT .Q24H ERICA Irbesartan 150 mg 05/05/22 09:00 05/05/22 08:49 Irbesartan 150 Mg Tablet PO 150 mg DAILY ERICA Administration Miscellaneous Information 1 each 05/04/22 00:01 Albuterol Nebs And Inhaler Prn Orders. D/C One? XX 06/03/22 00:00 CLARIFY ERICA Ondansetron HCl 4 mg 05/05/22 07:49 Ondansetron Inj 4 Mg/2 Ml Vial IV PUSH ONCE PRN Nausea Oxycodone HCl 5 mg 05/04/22 20:18 Oxycodone Hcl (*Crx) 5 Mg Tab Ir PO Q8H PRN PAIN 7-10 Oxycodone HCl 5 mg 05/05/22 07:49 O
--- NOTE | 2022-05-05 14:30 | PC.NURSE ---
pt to surgery via bed
[2022-05-05] MEDS: LACTATED RINGERS 1,000 ML 30 ML IV CONT (14:40)
--- NOTE | 2022-05-05 15:01 | WPDHPUPDATE1 ---
History and Physical Update Update Date/Time: 05/05/22 15:01 History and Physical has been reviewed, including an updated exam of the patient. There are NO changes in the patient's condition. Risks, benefits, and alternatives have been discussed and questions answered. Patient agrees to proceed with procedure.
[2022-05-05] MEDS: ceFAZolin 2 GM/D5W 50 ML 2 GM/50 ML BAG IVPB ×2 (15:30→22:57)
--- NOTE | 2022-05-05 15:43 | SUR.OPER ---
culture was given to IAN Daniels. Received in lab by Christina at [id number]
[2022-05-05] MEDS: fentaNYL CITRATE INJ (*CRX) 100 MCG/2 ML VIAL 25 MCG IV PUSH ×4 (16:24→16:37)
--- NOTE | 2022-05-05 16:27 | W.PM.PROC2 ---
Procedure Note - Detailed Date of Procedure 05/05/22 Pre-op Diagnosis Septic prepatellar bursitis right knee Post-op Diagnosis Same Procedure Performed Debridement right knee prepatellar bursal region Surgeon Mao Dangelo MD [employer]pe[employer]sembler Matthew Alonzo Anesthesia General Description of Procedure The patient was identified and proper site identified. He was taken to the operating room and after being transferred to the OR table underwent general anesthetic induction and intubation. Care was taken to properly pad and position his torso and extremities. Nonsterile tourniquet was placed high on the right thigh. Right lower extremity was prepped and draped in the usual sterile fashion. The extremity was gravity exsanguinated and the tourniquet was inflated to 300 millimeters of mercury remaining up for approximately 12 minutes. To the prepatellar space. Tissue cultures were sent. The space was thoroughly debrided and explored. It was fairly well-defined anteriorly and did not communicate with the knee joint. Devitalized skin was removed from the anterior part of the knee including the sinus tract. Tourniquet was released and antibiotics were administered. The knee was scrubbed with an antiseptic solution and then thoroughly irrigated with saline lavage. 8th inch Hemovac drain was left deep taking care not to entrap it during the closure. Skin edges reapproximated with 3-0 nylon suture under no tension. There was good vascularity to the flaps at the closure. Sterile dressing was applied and the drain was connected to the collection device. Patient tolerated the procedure well. He was awakened, extubated taken to recovery area in stable condition. There were no known intraoperative complications. Estimated blood loss 30 milliliters. Estimated Blood Loss 30 Tourniquet Time 12 Drains Yes (1/8 inch Hemovac) Packing No Pathology Other (Cultures sent to microbiology) Complications No immediate complications Condition Stable Disposition PACU
--- NOTE | 2022-05-05 17:05 | PC.NURSE ---
pt returned from surgery, resting comfortably, reviewed orders with pt and
[2022-05-05] MEDS: oxyCODONE/ACETAMINOPHEN (*CRX) 5-325 MG TABLET 1 TABLET PO ×2 (17:52→22:56)
[2022-05-05] MEDS: FAMOTIDINE 20 MG TABLET PO (20:24)
[2022-05-05] MEDS: ASPIRIN 325 MG ENTERIC TABLET PO (20:24)
[2022-05-05] MEDS: ZOLPIDEM TARTRATE (*CRX) 5 MG TABLET PO (20:27)
[2022-05-06] VITALS (9 sets, daily range): BP systolic 124–152; BP diastolic 67–74; PULSE 52–86; RESP 16–22; TEMP 36.3–36.9; O2SAT 90–97
[2022-05-06] MEDS: oxyCODONE/ACETAMINOPHEN (*CRX) 5-325 MG TABLET 1 TABLET PO ×3 (03:40→19:34)
[2022-05-06 05:51] LABS: Basophils Percent Auto 0.4 % (0.2-1.2); Eosinophils Absolute Auto 0.1 K/mm3 (0-0.3); Hemoglobin 12.5 g/dL (14.0-18.0); Immature Granulocyte Absolute 0.02 K/mm3 (0.00-0.031); Immature Granulocyte Percent A 0.4 % (0-0.5); Lymphocytes Absolute Auto 0.52 K/mm3 (0.9-3.2); Lymphocytes Percent Auto 11.2 % (18.3-44.2); Mean Corpuscular HGB Conc 32.1 g/dl (32-36); Mean Corpuscular Hemoglobin 32.9 pg (26-34); Mean Corpuscular Volume 102.6 fl (80-100); Mean Platelet Volume 9.9 fl (7.4-10.4); Monocytes Absolute Auto 0.5 K/mm3 (0.1-0.6); Monocytes Percent Auto 9.7 % (2.6-8.5); Neutrophils Absolute Auto 3.5 K/mm3 (1.3-6.7); Neutrophils Percent Auto 75.3 % (45.5-73.1); Platelet Count Result 109 k/mm3 (150-375); Red Cell Distribution Width 14.1 % (11.5-14.5); White Blood Count 4.6 K/mm3 (4.5-10.0)
[2022-05-06 06:08] LABS: Anion Gap 7 mmol/L (8-16); Blood Urea Nitrogen 8 mg/dL (9-20); Calcium 8.3 mg/dL (8.4-10.2); Carbon Dioxide 27 mmol/L (22-30); Chloride 101 mmol/L (98-107); Estimated CRCL calculation 99 ml/min; Estimated Glomerular Filt Rate > 60; Glucose 101 mg/dL (65-110); Potassium 3.9 mmol/L (3.4-5.0); Sodium 135 mmol/L (137-145)
--- NOTE | 2022-05-06 07:55 | WPDANESPN ---
Anes - Prog Note Post-Op Date/Time: 05/06/22 07:55 Cardiovascular status: normal Respiratory status: normal Airway patency: baseline Mental status: baseline Post-Op hydration status: normal Vital Signs: Last Vital Signs Temp 36.5 C 05/06/22 04:39 Pulse 65 05/06/22 04:39 Resp 22 H 05/06/22 04:39 BP 152/71 H 05/06/22 04:39 Pulse Ox 93 05/06/22 04:39 O2 Del Method Room Air 05/05/22 20:00 O2 Flow Rate 8 05/05/22 16:15 Pain Score (VAS): 3 I/O: Intake & Output 05/05/22 05/05/22 05/06/22 15:59 23:59 07:59 Intake Total 810 1350 450 Output Total 0 625 Balance 810 1350 -175 Laboratory Tests 05/06/22 05:04 05/06/22 05:04 05/06/22 05/06/22 05:04 05:04 WBC 4.6 RBC 3.80 L Hgb 12.5 L Hct 39.0 L MCV 102.6 H MCH 32.9 MCHC 32.1 RDW 14.1 Plt Count 109 L MPV 9.9 Immature Gran % (Auto) 0.4 Neut % (Auto) 75.3 H Lymph % (Auto) 11.2 L [place] % (Auto) 9.7 H Eos % (Auto) 3.0 Baso % (Auto) 0.4 Lymph # (Auto) 0.52 L [place] # (Auto) 0.5 Eos # (Auto) 0.1 Baso # (Auto) 0.0 Abs Immat Gran (auto) 0.02 Absolute Neuts (auto) 3.5 Absolute Nucleated RBC 0.0 Nucleated RBC % 0.0 Sodium 135 L Potassium 3.9 Chloride 101 Carbon Dioxide 27 Anion Gap 7 L BUN 8 L Creatinine 0.70 Estim Creat Clear Calc 99 Estimated GFR > 60 Glucose 101 Calcium 8.3 L Post-procedural complaints: none Patient Feedback: Patient satisfied with anesthetic care.
--- NOTE | 2022-05-06 08:18 | PM.PNORT ---
Progress Note: A&P Assessment and Plan (1) Septic prepatellar bursitis of right knee: Code(s): M71.161 - Other infective bursitis, right knee Status: Acute Plan Currently on Ancef and vancomycin awaiting culture results. Gram stain not available yet. ID pharmacist has been consulted and I discussed the case with him this morning. Once we have a better AD of what may be growing, outpatient treatment can be formulated. Following. Subjective Subjective Date/Time Seen: 05/06/22 08:18 Interval history: This document created with [id number] technology and is subject to economic adviser irregularities. POD 1 debridement right prepatellar bursal region for abscess Exam Const: General: cooperative, no acute distress and alert Nutritional Appearance: other Orientation/consciousness: patient oriented x3 Resp: Effort & Inspection: normal respiratory effort (Speaks clearly and easily) GI: Other: Normal amount of distention for him Extrem: Other: Dressing dry right lower extremity. Serosanguineous drainage in drain collection device. 25 milliliters overnight Objective Data Vital Signs Vital Signs: Vital Signs - 24 hr 05/05/22 14:02 05/05/22 14:44 05/05/22 16:03 Temperature 98.0 F 99.3 F 97.8 F Pulse Rate 72 71 70 Respiratory Rate 16 16 20 Blood Pressure 168/99 H 168/78 H 153/83 H Pulse Oximetry 97 100 100 Oxygen Delivery Room Air Simple Face Mask Oxygen Flow Rate 8 05/05/22 16:15 05/05/22 16:30 05/05/22 16:45 Temperature Pulse Rate 72 73 74 Respiratory Rate 18 18 16 Blood Pressure 158/86 H 137/71 145/69 H Pulse Oximetry 100 97 95 Oxygen Delivery Simple Face Mask Room Air Room Air Oxygen Flow Rate 8 05/05/22 17:00 05/05/22 17:15 05/05/22 17:45 Temperature 97.3 F L 97.7 F 97.9 F Pulse Rate 67 77 74 Respiratory Rate 18 16 20 Blood Pressure 146/66 H 169/82 H 170/85 H Pulse Oximetry 94 96 96 Oxygen Delivery Oxygen Flow Rate 05/05/22 18:15 05/05/22 19:50 05/05/22 20:00 Temperature 97.6 F 97.8 F Pulse Rate 68 65 Respiratory Rate 16 20 Blood Pressure 152/79 H 133/79 Pulse Oximetry 97 95 Oxygen Delivery Room Air Oxygen Flow Rate 05/06/22 00:28 05/06/22 04:39 Temperature 97.4 F L 97.7 F Pulse Rate 64 65 Respiratory Rate 20 22 H Blood Pressure 124/68 152/71 H Pulse Oximetry 93 93 Oxygen Delivery Oxygen Flow Rate Intake/Output Intake/Output: Intake & Output 05/03/22 05/04/22 05/05/22 05/06/22 23:59 23:59 23:59 23:59 Intake Total 480 / 480 3160 / 3160 450 / 450 Output Total 0 / 0 625 / 625 Balance 480 / 480 3160 / 3160 -175 / -175 Meds/Results Medications: Active Medications Generic Name Dose Route Start Last Admin Trade Name Freq PRN Reason Stop Dose Admin Acetaminophen 650 mg 05/05/22 16:55 Acetaminophen 325 Mg Tablet PO Q6H PRN Pain Rated 1-3 Albuterol 2.5 mg 05/04/22 20:18 Albuterol Sulfate Neb 2.5 Mg/3 Ml Inh INHALATION Q6H PRN shortness of breath or wheezing Albuterol 1 puff 05/04/22 20:18 Albuterol Sulfate (*Sp) Aerosol 1 Puff INHALATION Q4-6H PRN Shortness Of Breath Amlodipine Besylate 5 mg 05/05/22 09:00 05/05/22 08:49 Amlodipine Besylate 5 Mg Tablet PO 5 mg DAILY ERICA Administration Aspirin 325 mg 05/05/22 21:00 05/05/22 20:24 Aspirin 325 Mg Enteric Tablet PO 325 mg Q12HR ERICA Administration Ergocalciferol 50,000 unit 05/09/22 09:00 Ergocalciferol 50,000 Unit Capsule PO Mo@0900 ERICA Famotidine 20 mg 05/05/22 21:00 05/05/22 20:24 Famotidine 20 Mg Tablet PO 20 mg Q12HR ERICA Administration Gabapentin 300 mg 05/05/22 09:00 05/05/22 17:50 Gabapentin 300 Mg Capsule PO 300 mg TID ERICA Administration Cefazolin Sodium 2 gm in 50 mls @ 100 mls/hr 05/06/22 00:00 05/05/22 23:27 Ancef 2 Gm/D5w 50 Ml IVPB 05/06/22 16:29 Infused Q8H ERICA Infusion Vancomycin HCl 1,500 mg in 500 mls @ 333.333 mls/hr 05/05/22
[2022-05-06] MEDS: UMECLIDINIUM BROMIDE 62.5 MCG ELLIPTA 1 PUFF INHALATION (08:28)
[2022-05-06] MEDS: ALBUTEROL SULFATE (*SP) AEROSOL 1 PUFF INHALATION (08:30)
[2022-05-06] MEDS: rOPINIRole HCL 1 MG TABLET PO ×3 (08:44→17:06)
[2022-05-06] MEDS: amLODIPine BESYLATE 5 MG TABLET PO (08:44)
[2022-05-06] MEDS: FAMOTIDINE 20 MG TABLET PO ×2 (08:44→19:35)
[2022-05-06] MEDS: SERTRALINE HCL 50 MG TABLET 100 MG PO (08:44)
[2022-05-06] MEDS: GABAPENTIN 300 MG CAPSULE PO ×3 (08:44→16:50)
[2022-05-06] MEDS: PHENYTOIN SODIUM 100 MG EXTENDED RELEASE CAP 200 MG PO ×2 (08:44→19:36)
[2022-05-06] MEDS: ceFAZolin 2 GM/D5W 50 ML 2 GM/50 ML BAG IVPB ×2 (08:45→16:46)
[2022-05-06] MEDS: IRBESARTAN 150 MG TABLET PO (08:45)
[2022-05-06] MEDS: ASPIRIN 325 MG ENTERIC TABLET PO ×2 (08:45→19:35)
--- NOTE | 2022-05-06 10:32 | PM.IMPN ---
Progress Note: A&P Assessment and Plan (1) Septic prepatellar bursitis of right knee: Code(s): M71.161 - Other infective bursitis, right knee Status: Acute Assessment and Plan: Orthopedic surgery has been consult and patient is to go to the operating room Continue IV antibiotics (2) Hypertension: Code(s): I10 - Essential (primary) hypertension Status: Acute Assessment and Plan: Monitor blood pressure Subjective Date/time seen: 05/06/22 10:32 Doing well no complaints Exam Narrative: Constitutional: Patient is well-nourished in no acute distress. Patient is alert and oriented x3 HEENT: Moist mucous membranes. No scleral icterus. No lymphadenopathy. Neck: No carotid bruits noted no JVD noted Lungs: Lung sounds are clear to auscultation bilaterally. No accessory muscle use. No rhonchi, rales, or wheezes noted. Cardiovascular: Apical pulse is regular rate and rhythm. S1-S2 noted, no S3 or S4 noted. No gallops, murmurs, or rubs noted. Abdomen: Soft, round, and nontender. No palpable masses. Extremities: No edema. Nontender. Patient's right knee does have a large amount of swelling noted. There is a scabbed area and a small amount of serosanguineous drainage. There is some mild erythema. Skin: No rashes or lesions. Warm and dry. Patient has a scab noted to right knee Neurological: No focal neurological deficits. Cranial nerves II-XII grossly intact. Psychiatric: Cooperative, appropriate mood, and affect Objective Data Vital Signs Vital Signs: Vital Signs - 24 hr 05/05/22 14:02 05/05/22 14:44 05/05/22 16:03 Temperature 98.0 F 99.3 F 97.8 F Pulse Rate 72 71 70 Respiratory Rate 16 16 20 Blood Pressure 168/99 H 168/78 H 153/83 H Pulse Oximetry 97 100 100 Oxygen Delivery Room Air Simple Face Mask Oxygen Flow Rate 8 05/05/22 16:15 05/05/22 16:30 05/05/22 16:45 Temperature Pulse Rate 72 73 74 Respiratory Rate 18 18 16 Blood Pressure 158/86 H 137/71 145/69 H Pulse Oximetry 100 97 95 Oxygen Delivery Simple Face Mask Room Air Room Air Oxygen Flow Rate 8 05/05/22 17:00 05/05/22 17:15 05/05/22 17:45 Temperature 97.3 F L 97.7 F 97.9 F Pulse Rate 67 77 74 Respiratory Rate 18 16 20 Blood Pressure 146/66 H 169/82 H 170/85 H Pulse Oximetry 94 96 96 Oxygen Delivery Oxygen Flow Rate 05/05/22 18:15 05/05/22 19:50 05/05/22 20:00 Temperature 97.6 F 97.8 F Pulse Rate 68 65 Respiratory Rate 16 20 Blood Pressure 152/79 H 133/79 Pulse Oximetry 97 95 Oxygen Delivery Room Air Oxygen Flow Rate 05/06/22 00:28 05/06/22 04:39 05/06/22 08:32 Temperature 97.4 F L 97.7 F Pulse Rate 64 65 72 Respiratory Rate 20 22 H 22 H Blood Pressure 124/68 152/71 H Pulse Oximetry 93 93 95 Oxygen Delivery Room Air Oxygen Flow Rate 05/06/22 08:00 05/06/22 08:34 05/06/22 08:58 Temperature Pulse Rate 76 72 Respiratory Rate 22 H Blood Pressure Pulse Oximetry 95 Oxygen Delivery Room Air Room Air Oxygen Flow Rate 05/06/22 09:05 05/06/22 08:30 Temperature Pulse Rate Respiratory Rate Blood Pressure Pulse Oximetry Oxygen Delivery Room Air Room Air Oxygen Flow Rate Intake/Output Intake/Output: Intake & Output 05/03/22 05/04/22 05/05/22 05/06/22 23:59 23:59 23:59 23:59 Intake Total 480 3160 1430 Output Total 0 625 Balance 480 3160 805 Meds/Results Medications: Active Medications Generic Name Dose Route Start Last Admin Trade Name [facility] PRN Reason Stop Dose Admin Acetaminophen 650 mg 05/05/22 16:55 Acetaminophen 325 Mg Tablet PO Q6H PRN Pain Rated 1-3 Albuterol 2.5 mg 05/04/22 20:18 Albuterol Sulfate Neb 2.5 Mg/3 Ml Inh INHALATION Q6H PRN shortness of breath or wheezing Albuterol 1 puff 05/04/22 20:18 05/06/22 08:30 Albuterol Sulfate (*Sp) Aerosol 1 Puff INHALATION 1 puff Q4-6H PRN Administration Shortness Of Breath Amlodipine Besylate 5
--- NOTE | 2022-05-06 14:16 | WPDCDIQUERY2 ---
CDI Query Clarification Request [place] [address] [place] [address] Operative Note Signed Patient: Marco Antonio Shirley MR#: [id number] : 1950 Acct:[id number] Age/Sex: 71 / M Procedure Note - Detailed Date of Procedure 05/05/22 Pre-op Diagnosis Septic prepatellar bursitis right knee Post-op Diagnosis Same Procedure Performed Debridement right knee prepatellar bursal region Surgeon Mao Dangelo MD 05/05 Surgeon documented: Nonsterile tourniquet was placed high on the right thigh. Right lower extremity was prepped and draped in the usual sterile fashion. The extremity was gravity exsanguinated and the tourniquet was inflated to 300 millimeters of mercury remaining up for approximately 12 minutes. To the prepatellar space. Tissue cultures were sent. The space was thoroughly debrided and explored. It was fairly well-defined anteriorly and did not communicate with the knee joint. Devitalized skin was removed from the anterior part of the knee including the sinus tract. Tourniquet was released and antibiotics were administered. The knee was scrubbed with an antiseptic solution and then thoroughly irrigated with saline lavage. Please specify additional information regarding the patient's debridement: - Excisional or Non Excisional -Depth: -Skin -Subcutaneous tissue -Soft Tissue -Fascia -Muscle -Bone <Lidia Reece - Last Filed: 05/06/22 14:22> [place] [address] Operative Note Signed Patient: Marco Antonio Shirley MR#: [id number] : 1950 Acct:[id number] Age/Sex: 71 / M Procedure Note - Detailed Date of Procedure 05/05/22 Pre-op Diagnosis Septic prepatellar bursitis right knee Post-op Diagnosis Same Procedure Performed Debridement right knee prepatellar bursal region Surgeon Mao Dangelo MD 05/05 Surgeon documented: Nonsterile tourniquet was placed high on the right thigh. Right lower extremity was prepped and draped in the usual sterile fashion. The extremity was gravity exsanguinated and the tourniquet was inflated to 300 millimeters of mercury remaining up for approximately 12 minutes. To the prepatellar space. Tissue cultures were sent. The space was thoroughly debrided and explored. It was fairly well-defined anteriorly and did not communicate with the knee joint. Devitalized skin was removed from the anterior part of the knee including the sinus tract. Tourniquet was released and antibiotics were administered. The knee was scrubbed with an antiseptic solution and then thoroughly irrigated with saline lavage. Please specify additional information regarding the patient's debridement: - Excisional or Non Excisional -Depth: Subcutaneous tissue, nonexcisional -Skin -Subcutaneous tissue -Soft Tissue -Fascia -Muscle -Bone <Mao Dangelo MD - Last Filed: 05/07/22 07:00>
[2022-05-06] MEDS: ZOLPIDEM TARTRATE (*CRX) 5 MG TABLET PO (21:05)
[2022-05-07] VITALS (9 sets, daily range): BP systolic 118–169; BP diastolic 66–89; PULSE 61–98; RESP 17–20; TEMP 35.9–36.9; O2SAT 92–98
[2022-05-07] MEDS: oxyCODONE/ACETAMINOPHEN (*CRX) 5-325 MG TABLET 1 TABLET PO ×4 (01:55→21:00)
[2022-05-07 05:23] LABS: Vancomycin Trough 18.1 ug/mL (10.0-20.0)
--- NOTE | 2022-05-07 07:12 | PM.PNORT ---
Progress Note: A&P Assessment and Plan (1) Septic prepatellar bursitis of right knee: Code(s): M71.161 - Other infective bursitis, right knee Status: Acute Plan Staph aureus identified. Await sensitivities. Continue with Ancef and vancomycin. Would anticipate probable discharge by Monday once sensitivities are back. Following. Subjective Subjective Date/Time Seen: 05/07/22 07:12 Post Op day: 2 Principal diagnosis: Dx: Status post debridement right knee prepatellar abscess Exam Const: General: cooperative, alert and awake Orientation/consciousness: patient oriented x3 HENMT: Head: normal to inspection Ears: hearing grossly normal bilaterally Resp: Effort & Inspection: able to speak in complete sentences GI: Inspection: non-distended GI Palp: No abdominal tenderness Neuro: General: patient oriented x3 Extrem: Other: Exam of right knee wound shows wound edges well apposed with good vascularity. No drainage. Virtually no drainage in the Hemovac. Hemovac removed without difficulty. Psych: Mental Status: mental status grossly normal Objective Data Vital Signs Vital Signs: Vital Signs - 24 hr 05/06/22 08:32 05/06/22 08:00 05/06/22 08:34 Temperature Pulse Rate 72 76 72 Respiratory Rate 22 H 22 H Blood Pressure Pulse Oximetry 95 95 Oxygen Delivery Room Air Room Air 05/06/22 08:58 05/06/22 09:05 05/06/22 08:30 Temperature Pulse Rate Respiratory Rate Blood Pressure Pulse Oximetry Oxygen Delivery Room Air Room Air Room Air 05/06/22 10:45 05/06/22 14:15 05/06/22 18:25 Temperature 97.9 F 98.4 F 97.3 F L Pulse Rate 68 86 69 Respiratory Rate 16 20 16 Blood Pressure 128/67 131/74 152/70 H Pulse Oximetry 92 90 97 Oxygen Delivery 05/06/22 20:24 05/07/22 00:01 05/07/22 04:06 Temperature 97.4 F L 96.6 F L 97.6 F Pulse Rate 52 L 61 64 Respiratory Rate 20 20 20 Blood Pressure 148/72 H 169/89 H 149/76 H Pulse Oximetry 94 95 97 Oxygen Delivery Intake/Output Intake/Output: Intake & Output 05/04/22 05/05/22 05/06/22 05/07/22 23:59 23:59 23:59 23:59 Intake Total 480 / 480 3160 / 3160 2930 / 2930 390 / 390 Output Total 0 / 0 2024 1755 / 175 Balance 480 / 480 3160 / 3160 905 / 905 -1365 / -1365 Meds/Results Medications: Active Medications Generic Name Dose Route Start Last Admin Trade Name Freq PRN Reason Stop Dose Admin Acetaminophen 650 mg 05/05/22 16:55 Acetaminophen 325 Mg Tablet PO Q6H PRN Pain Rated 1-3 Albuterol 2.5 mg 05/04/22 20:18 Albuterol Sulfate Neb 2.5 Mg/3 Ml Inh INHALATION Q6H PRN shortness of breath or wheezing Albuterol 1 puff 05/04/22 20:18 05/06/22 08:30 Albuterol Sulfate (*Sp) Aerosol 1 Puff INHALATION 1 puff Q4-6H PRN Administration Shortness Of Breath Amlodipine Besylate 5 mg 05/05/22 09:00 05/06/22 08:44 Amlodipine Besylate 5 Mg Tablet PO 5 mg DAILY ERICA Administration Aspirin 325 mg 05/05/22 21:00 05/06/22 19:35 Aspirin 325 Mg Enteric Tablet PO 325 mg Q12HR ERICA Administration Ergocalciferol 50,000 unit 05/09/22 09:00 Ergocalciferol 50,000 Unit Capsule PO Mo@0900 ERICA Famotidine 20 mg 05/05/22 21:00 05/06/22 19:35 Famotidine 20 Mg Tablet PO 20 mg Q12HR ERICA Administration Gabapentin 300 mg 05/05/22 09:00 05/06/22 16:50 Gabapentin 300 Mg Capsule PO 300 mg TID ERICA Administration Vancomycin HCl 1,500 mg in 500 mls @ 333.333 mls/hr 05/07/22 12:00 Vancomycin 1,500 Mg/D5w 500 Ml IVPB Q18H ERICA Irbesartan 150 mg 05/05/22 09:00 05/06/22 08:45 Irbesartan 150 Mg Tablet PO 150 mg DAILY ERICA Administration Miscellaneous Information 1 each 05/04/22 00:01 Albuterol Nebs And Inhaler Prn Orders. D/C One? XX 06/03/22 00:00 CLARIFY ERICA Ondansetron HCl 4 mg 05/05/22 16:55 Ondansetron Inj 4 Mg/2 Ml Vial IV PUSH Q4H PRN Nausea And Vomiting Oxycodone/Acetaminophen
[2022-05-07] MEDS: UMECLIDINIUM BROMIDE 62.5 MCG ELLIPTA 1 PUFF INHALATION (08:27)
--- NOTE | 2022-05-07 09:21 | PM.IMPN ---
Progress Note: A&P Assessment and Plan (1) Septic prepatellar bursitis of right knee: Code(s): M71.161 - Other infective bursitis, right knee Status: Acute Assessment and Plan: Orthopedic surgery has been consult and patient is to go to the operating room Continue IV antibiotics (2) Hypertension: Code(s): I10 - Essential (primary) hypertension Status: Acute Assessment and Plan: Monitor blood pressure Subjective Date/time seen: 05/07/22 09:21 No complaints Exam Narrative: Constitutional: Patient is well-nourished in no acute distress. Patient is alert and oriented x3 HEENT: Moist mucous membranes. No scleral icterus. No lymphadenopathy. Neck: No carotid bruits noted no JVD noted Lungs: Lung sounds are clear to auscultation bilaterally. No accessory muscle use. No rhonchi, rales, or wheezes noted. Cardiovascular: Apical pulse is regular rate and rhythm. S1-S2 noted, no S3 or S4 noted. No gallops, murmurs, or rubs noted. Abdomen: Soft, round, and nontender. No palpable masses. Extremities: No edema. Nontender. Patient's right knee does have a large amount of swelling noted. There is a scabbed area and a small amount of serosanguineous drainage. There is some mild erythema. Skin: No rashes or lesions. Warm and dry. Patient has a scab noted to right knee Neurological: No focal neurological deficits. Cranial nerves II-XII grossly intact. Psychiatric: Cooperative, appropriate mood, and affect Objective Data Vital Signs Vital Signs: Vital Signs - 24 hr 05/06/22 10:45 05/06/22 14:15 05/06/22 18:25 Temperature 97.9 F 98.4 F 97.3 F L Pulse Rate 68 86 69 Respiratory Rate 16 20 16 Blood Pressure 128/67 131/74 152/70 H Pulse Oximetry 92 90 97 Oxygen Delivery 05/06/22 20:24 05/07/22 00:01 05/07/22 04:06 Temperature 97.4 F L 96.6 F L 97.6 F Pulse Rate 52 L 61 64 Respiratory Rate 20 20 20 Blood Pressure 148/72 H 169/89 H 149/76 H Pulse Oximetry 94 95 97 Oxygen Delivery 05/07/22 08:29 Temperature Pulse Rate 98 Respiratory Rate 20 Blood Pressure Pulse Oximetry 95 Oxygen Delivery Room Air Intake/Output Intake/Output: Intake & Output 05/04/22 05/05/22 05/06/22 05/07/22 23:59 23:59 23:59 23:59 Intake Total 480 3160 2930 390 Output Total 0 5 1755 Balance 480 3160 905 -1330 Meds/Results Medications: Active Medications Generic Name Dose Route Start Last Admin Trade Name Freq PRN Reason Stop Dose Admin Acetaminophen 650 mg 05/05/22 16:55 Acetaminophen 325 Mg Tablet PO Q6H PRN Pain Rated 1-3 Albuterol 2.5 mg 05/04/22 20:18 Albuterol Sulfate Neb 2.5 Mg/3 Ml Inh INHALATION Q6H PRN shortness of breath or wheezing Albuterol 1 puff 05/04/22 20:18 05/06/22 08:30 Albuterol Sulfate (*Sp) Aerosol 1 Puff INHALATION 1 puff Q4-6H PRN Administration Shortness Of Breath Amlodipine Besylate 5 mg 05/05/22 09:00 05/06/22 08:44 Amlodipine Besylate 5 Mg Tablet PO 5 mg DAILY ERICA Administration Aspirin 325 mg 05/05/22 21:00 05/06/22 19:35 Aspirin 325 Mg Enteric Tablet PO 325 mg Q12HR ERICA Administration Ergocalciferol 50,000 unit 05/09/22 09:00 Ergocalciferol 50,000 Unit Capsule PO Mo@0900 ERICA Famotidine 20 mg 05/05/22 21:00 05/06/22 19:35 Famotidine 20 Mg Tablet PO 20 mg Q12HR ERICA Administration Gabapentin 300 mg 05/05/22 09:00 05/06/22 16:50 Gabapentin 300 Mg Capsule PO 300 mg TID ERICA Administration Vancomycin HCl 1,500 mg in 500 mls @ 333.333 mls/hr 05/07/22 12:00 Vancomycin 1,500 Mg/D5w 500 Ml IVPB Q18H ERICA Irbesartan 150 mg 05/05/22 09:00 05/06/22 08:45 Irbesartan 150 Mg Tablet PO 150 mg DAILY ERICA Administration Miscellaneous Information 1 each 05/04/22 00:01 Albuterol Nebs And Inhaler Prn Orders. D/C One? XX 06/03/22 00:00 CLARIFY ERICA Ondansetron HCl 4 mg 05/05/22 16:55 Ondansetron Inj 4 Mg/2 Ml V
[2022-05-07] MEDS: rOPINIRole HCL 1 MG TABLET PO ×3 (09:24→16:11)
[2022-05-07] MEDS: polyethylene glycoL 3350 17 GM POWD.PACK PO (09:24)
[2022-05-07] MEDS: GABAPENTIN 300 MG CAPSULE PO ×3 (09:24→16:12)
[2022-05-07] MEDS: PHENYTOIN SODIUM 100 MG EXTENDED RELEASE CAP 200 MG PO ×2 (09:25→21:00)
[2022-05-07] MEDS: IRBESARTAN 150 MG TABLET PO (09:25)
[2022-05-07] MEDS: SERTRALINE HCL 50 MG TABLET 100 MG PO (09:26)
[2022-05-07] MEDS: SENNA/DOCUSATE SODIUM TABLET 2 TAB PO ×2 (09:26→16:12)
[2022-05-07] MEDS: FAMOTIDINE 20 MG TABLET PO ×2 (09:26→21:00)
[2022-05-07] MEDS: amLODIPine BESYLATE 5 MG TABLET PO (09:26)
[2022-05-07] MEDS: ASPIRIN 325 MG ENTERIC TABLET PO ×2 (11:37→21:00)
[2022-05-07] MEDS: ZOLPIDEM TARTRATE (*CRX) 5 MG TABLET PO (21:00)
[2022-05-08] VITALS (7 sets, daily range): BP systolic 121–169; BP diastolic 59–84; PULSE 67–72; RESP 17–20; TEMP 36.3–36.6; O2SAT 95–99
[2022-05-08] MEDS: oxyCODONE/ACETAMINOPHEN (*CRX) 5-325 MG TABLET 1 TABLET PO ×2 (05:22→12:51)
[2022-05-08] MEDS: UMECLIDINIUM BROMIDE 62.5 MCG ELLIPTA 1 PUFF INHALATION (07:17)
--- NOTE | 2022-05-08 08:16 | PM.PNORT ---
Progress Note: A&P Assessment and Plan (1) Septic prepatellar bursitis of right knee: Code(s): M71.161 - Other infective bursitis, right knee Status: Acute Plan Await sensitivities. Likely be able to go home on four-week course of oral antibiotics tomorrow. Follow-up will be in two weeks for suture removal. Recommended he continue using his walker until he returns for suture removal. Following. Subjective Subjective Date/Time Seen: 05/08/22 08:16 Post Op day: 3 Principal diagnosis: Dx:Prepatellar abscess right knee Interval history: 71-year-old male postop day three prepatellar abscess debridement right knee. MRSA growing. Currently on vancomycin. Exam Const: General: cooperative, alert and awake Orientation/consciousness: patient oriented x3 HENMT: Head: normal to inspection Ears: hearing grossly normal bilaterally Resp: Effort & Inspection: able to speak in complete sentences GI: GI Palp: No abdominal tenderness Neuro: General: patient oriented x3 Extrem: Other: Exam of right knee reveals very little swelling. Wound dry. No erythema. Neurovascular status right lower extremity unremarkable. Psych: Mental Status: mental status grossly normal Objective Data Vital Signs Vital Signs: Vital Signs - 24 hr 05/07/22 08:29 05/07/22 10:00 05/07/22 09:25 Temperature 97.5 F L Pulse Rate 98 70 Respiratory Rate 20 18 Blood Pressure 159/83 H Pulse Oximetry 95 96 Oxygen Delivery Room Air Room Air 05/07/22 14:00 05/07/22 18:00 05/07/22 19:36 Temperature 98.2 F 98.5 F 97.3 F L Pulse Rate 67 66 65 Respiratory Rate 18 18 17 Blood Pressure 118/66 166/70 H 169/74 H Pulse Oximetry 95 97 98 Oxygen Delivery 05/07/22 23:40 05/08/22 04:13 05/07/22 19:41 Temperature 97.3 F L 97.8 F Pulse Rate 78 67 Respiratory Rate 17 17 Blood Pressure 140/78 168/59 H Pulse Oximetry 92 95 97 Oxygen Delivery Room Air Intake/Output Intake/Output: Intake & Output 05/05/22 05/06/22 05/07/22 05/08/22 23:59 23:59 23:59 23:59 Intake Total 3160 / 3160 2930 / 2930 2290 / 2290 240 / 240 Output Total 0 / 0 2024 3405 / 3405 Balance 3160 / 3160 905 / 905 -1115 / -1115 240 / 240 Meds/Results Medications: Active Medications Generic Name Dose Route Start Last Admin Trade Name Freq PRN Reason Stop Dose Admin Acetaminophen 650 mg 05/05/22 16:55 Acetaminophen 325 Mg Tablet PO Q6H PRN Pain Rated 1-3 Albuterol 2.5 mg 05/04/22 20:18 Albuterol Sulfate Neb 2.5 Mg/3 Ml Inh INHALATION Q6H PRN shortness of breath or wheezing Albuterol 1 puff 05/04/22 20:18 05/06/22 08:30 Albuterol Sulfate (*Sp) Aerosol 1 Puff INHALATION 1 puff Q4-6H PRN Administration Shortness Of Breath Amlodipine Besylate 5 mg 05/05/22 09:00 05/07/22 09:26 Amlodipine Besylate 5 Mg Tablet PO 5 mg DAILY ERICA Administration Aspirin 325 mg 05/05/22 21:00 05/07/22 21:00 Aspirin 325 Mg Enteric Tablet PO 325 mg Q12HR ERICA Administration Ergocalciferol 50,000 unit 05/09/22 09:00 Ergocalciferol 50,000 Unit Capsule PO Mo@0900 ERICA Famotidine 20 mg 05/05/22 21:00 05/07/22 21:00 Famotidine 20 Mg Tablet PO 20 mg Q12HR ERICA Administration Gabapentin 300 mg 05/05/22 09:00 05/07/22 16:12 Gabapentin 300 Mg Capsule PO 300 mg TID ERICA Administration Vancomycin HCl 1,500 mg in 500 mls @ 333.333 mls/hr 05/07/22 12:00 05/08/22 05:22 Vancomycin 1,500 Mg/D5w 500 Ml IVPB 333.33 mls/hr Q18H ERICA Administration Irbesartan 150 mg 05/05/22 09:00 05/07/22 09:25 Irbesartan 150 Mg Tablet PO 150 mg DAILY ERICA Administration Miscellaneous Information 1 each 05/04/22 00:01 Albuterol Nebs And Inhaler Prn Orders. D/C One? XX 06/03/22 00:00 CLARIFY ERICA Ondansetron HCl 4 mg 05/05/22 16:55 Ondansetron Inj 4 Mg/2 Ml Vial IV PUSH Q4H PRN Nausea And Vomiting Oxycodone/Acetaminophen 1 tablet 05/05/22
[2022-05-08] MEDS: SENNA/DOCUSATE SODIUM TABLET 2 TAB PO ×2 (08:46→17:43)
[2022-05-08] MEDS: PHENYTOIN SODIUM 100 MG EXTENDED RELEASE CAP 200 MG PO ×2 (08:47→21:41)
[2022-05-08] MEDS: ASPIRIN 325 MG ENTERIC TABLET PO ×2 (08:47→21:41)
[2022-05-08] MEDS: rOPINIRole HCL 1 MG TABLET PO ×3 (08:47→17:43)
[2022-05-08] MEDS: GABAPENTIN 300 MG CAPSULE PO ×3 (08:47→17:43)
[2022-05-08] MEDS: amLODIPine BESYLATE 5 MG TABLET PO (08:48)
[2022-05-08] MEDS: FAMOTIDINE 20 MG TABLET PO ×2 (08:48→21:41)
[2022-05-08] MEDS: IRBESARTAN 150 MG TABLET PO (08:48)
[2022-05-08] MEDS: polyethylene glycoL 3350 17 GM POWD.PACK PO (08:48)
[2022-05-08] MEDS: SERTRALINE HCL 50 MG TABLET 100 MG PO (08:48)
--- NOTE | 2022-05-08 11:04 | PM.IMPN ---
Progress Note: A&P Assessment and Plan (1) Septic prepatellar bursitis of right knee: Code(s): M71.161 - Other infective bursitis, right knee Status: Acute Assessment and Plan: Orthopedic surgery has been consult and patient is to go to the operating room Continue IV antibiotics -await culture sensitivities (2) Hypertension: Code(s): I10 - Essential (primary) hypertension Status: Acute Assessment and Plan: Monitor blood pressure Subjective Date/time seen: 05/08/22 11:04 No new complaints, patient ambulating without any pain Exam Narrative: Constitutional: Patient is well-nourished in no acute distress. Patient is alert and oriented x3 HEENT: Moist mucous membranes. No scleral icterus. No lymphadenopathy. Neck: No carotid bruits noted no JVD noted Lungs: Lung sounds are clear to auscultation bilaterally. No accessory muscle use. No rhonchi, rales, or wheezes noted. Cardiovascular: Apical pulse is regular rate and rhythm. S1-S2 noted, no S3 or S4 noted. No gallops, murmurs, or rubs noted. Abdomen: Soft, round, and nontender. No palpable masses. Extremities: No edema. Nontender. Patient's right knee does have a large amount of swelling noted. There is a scabbed area and a small amount of serosanguineous drainage. There is some mild erythema. Skin: No rashes or lesions. Warm and dry. Patient has a scab noted to right knee Neurological: No focal neurological deficits. Cranial nerves II-XII grossly intact. Psychiatric: Cooperative, appropriate mood, and affect Objective Data Vital Signs Vital Signs: Vital Signs - 24 hr 05/07/22 14:00 05/07/22 18:00 05/07/22 19:36 Temperature 98.2 F 98.5 F 97.3 F L Pulse Rate 67 66 65 Respiratory Rate 18 18 17 Blood Pressure 118/66 166/70 H 169/74 H Pulse Oximetry 95 97 98 Oxygen Delivery 05/07/22 23:40 05/08/22 04:13 05/07/22 19:41 Temperature 97.3 F L 97.8 F Pulse Rate 78 67 Respiratory Rate 17 17 Blood Pressure 140/78 168/59 H Pulse Oximetry 92 95 97 Oxygen Delivery Room Air Intake/Output Intake/Output: Intake & Output 06/1605/06/22 05/07/22 05/08/22 23:59 23:59 23:59 23:59 Intake Total 3160 2930 2290 360 Output Total 0 5 3405 Balance 3160 905 -1115 360 Meds/Results Medications: Active Medications Generic Name Dose Route Start Last Admin Trade Name Freq PRN Reason Stop Dose Admin Acetaminophen 650 mg 05/05/22 16:55 Acetaminophen 325 Mg Tablet PO Q6H PRN Pain Rated 1-3 Albuterol 2.5 mg 05/04/22 20:18 Albuterol Sulfate Neb 2.5 Mg/3 Ml Inh INHALATION Q6H PRN shortness of breath or wheezing Albuterol 1 puff 05/04/22 20:18 05/06/22 08:30 Albuterol Sulfate (*Sp) Aerosol 1 Puff INHALATION 1 puff Q4-6H PRN Administration Shortness Of Breath Amlodipine Besylate 5 mg 05/05/22 09:00 05/08/22 08:48 Amlodipine Besylate 5 Mg Tablet PO 5 mg DAILY ERICA Administration Aspirin 325 mg 05/05/22 21:00 05/08/22 08:47 Aspirin 325 Mg Enteric Tablet PO 325 mg Q12HR ERICA Administration Ergocalciferol 50,000 unit 05/09/22 09:00 Ergocalciferol 50,000 Unit Capsule PO Mo@0900 ERICA Famotidine 20 mg 05/05/22 21:00 05/08/22 08:48 Famotidine 20 Mg Tablet PO 20 mg Q12HR ERICA Administration Gabapentin 300 mg 05/05/22 09:00 05/08/22 08:47 Gabapentin 300 Mg Capsule PO 300 mg TID ERICA Administration Vancomycin HCl 1,500 mg in 500 mls @ 333.333 mls/hr 05/07/22 12:00 05/08/22 05:22 Vancomycin 1,500 Mg/D5w 500 Ml IVPB 333.33 mls/hr Q18H ERICA Administration Irbesartan 150 mg 05/05/22 09:00 05/08/22 08:48 Irbesartan 150 Mg Tablet PO 150 mg DAILY ERICA Administration Miscellaneous Information 1 each 05/04/22 00:01 Albuterol Nebs And Inhaler Prn Orders. D/C One? XX 06/03/22 00:00 CLARIFY ERICA Ondansetron HCl 4 mg 05/05/22 16:55 Ondansetron Inj 4 Mg/2 Ml Vial IV PUSH Q4H PRN
[2022-05-08 23:29] LABS: Vancomycin Trough 13.4 ug/mL (10.0-20.0)
[2022-05-09 00:24] VITALS: BP 189/73; PULSE 72; RESP 20; TEMP 36.3; O2SAT 100
[2022-05-09] MEDS: oxyCODONE/ACETAMINOPHEN (*CRX) 5-325 MG TABLET 1 TABLET PO ×2 (00:24→08:10)
[2022-05-09] MEDS: ZOLPIDEM TARTRATE (*CRX) 5 MG TABLET PO (00:34)
[2022-05-09 04:22] VITALS: BP 141/82; PULSE 65; RESP 20; TEMP 36.3; O2SAT 97
[2022-05-09 07:56] LABS: Estimated CRCL calculation 113 ml/min; Estimated Glomerular Filt Rate > 60
[2022-05-09 08:05] VITALS: O2SAT 97
[2022-05-09] MEDS: UMECLIDINIUM BROMIDE 62.5 MCG ELLIPTA 1 PUFF INHALATION (08:05)
[2022-05-09] MEDS: SERTRALINE HCL 50 MG TABLET 100 MG PO (08:07)
[2022-05-09] MEDS: GABAPENTIN 300 MG CAPSULE PO (08:08)
[2022-05-09] MEDS: ERGOCALCIFEROL 50,000 UNIT CAPSULE 50000 UNITS PO (08:08)
[2022-05-09] MEDS: FAMOTIDINE 20 MG TABLET PO (08:08)
[2022-05-09] MEDS: PHENYTOIN SODIUM 100 MG EXTENDED RELEASE CAP 200 MG PO (08:09)
[2022-05-09] MEDS: rOPINIRole HCL 1 MG TABLET PO (08:09)
[2022-05-09] MEDS: ASPIRIN 325 MG ENTERIC TABLET PO (08:09)
[2022-05-09] MEDS: amLODIPine BESYLATE 5 MG TABLET PO (08:09)
[2022-05-09] MEDS: IRBESARTAN 150 MG TABLET PO (08:10)
[2022-05-09 10:04] VITALS: BP 126/65; PULSE 85; RESP 16; TEMP 36.8; O2SAT 100
--- NOTE | 2022-05-09 10:51 | PM.PNORT ---
Progress Note: A&P Assessment and Plan (1) Septic prepatellar bursitis of right knee: Code(s): M71.161 - Other infective bursitis, right knee Status: Acute Plan 71-year-old male postop day 4. Will start on clindamycin at discharge. Plan to see him in the office in 2 weeks for suture removal. He will keep the incision clean and dry and use nonstick Telfa for daily dressing changes. He will continue to use the walker as a gait aid until seen in 2 weeks. He can add [id number] Tylenol to your previously prescribed pain medication. Subjective Subjective Date/Time Seen: 05/09/22 10:51 Post Op day: 4 Principal diagnosis: Prepatellar abscess right knee Interval history: 71-year-old male postop day 4 after debridement of prepatellar abscess. Overall doing well and ambulating without difficulty using a walker as a gait aid. Uneventful overnight. Review of Systems Constitutional: Constitutional: Reports as per HPI Exam Const: General: comfortable and no acute distress Resp: Effort & Inspection: normal respiratory effort Skin: General skin exam: normal color Other: Surgical incision over the right patella is well-approximated, clean and dry. Extrem: Other: Exam of? right knee reveals very little swelling.? No erythema.? Neurovascular status right lower extremity unremarkable. Psych: Mental Status: mental status grossly normal Objective Data Vital Signs Vital Signs: Vital Signs - 24 hr 05/08/22 14:00 05/08/22 18:00 05/08/22 20:38 Temperature 97.9 F 97.5 F L 97.7 F Pulse Rate 72 72 67 Respiratory Rate 18 18 20 Blood Pressure 169/72 H 134/67 136/84 Pulse Oximetry 99 98 98 Oxygen Delivery 05/08/22 21:18 05/09/22 00:24 05/08/22 20:00 Temperature 97.4 F L Pulse Rate 72 Respiratory Rate 20 Blood Pressure 189/73 H Pulse Oximetry 97 100 Oxygen Delivery Room Air Room Air 05/09/22 04:22 05/09/22 08:05 05/09/22 08:00 Temperature 97.4 F L Pulse Rate 65 Respiratory Rate 20 Blood Pressure 141/82 H Pulse Oximetry 97 97 Oxygen Delivery Room Air Room Air 05/09/22 10:04 Temperature 98.2 F Pulse Rate 85 Respiratory Rate 16 Blood Pressure 126/65 Pulse Oximetry 100 Oxygen Delivery Intake/Output Intake/Output: Intake & Output 05/06/22 05/07/22 05/08/22 05/09/22 23:59 23:59 23:59 23:59 Intake Total 2930 2290 980 610 Output Total 2024 3408 350 Balance 905 111 980 260 Meds/Results Medications: Active Medications Generic Name Dose Route Start Last Admin Trade Name Freq PRN Reason Stop Dose Admin Acetaminophen 650 mg 05/05/22 16:55 Acetaminophen 325 Mg Tablet PO Q6H PRN Pain Rated 1-3 Albuterol 2.5 mg 05/04/22 20:18 Albuterol Sulfate Neb 2.5 Mg/3 Ml Inh INHALATION Q6H PRN shortness of breath or wheezing Albuterol 1 puff 05/04/22 20:18 05/06/22 08:30 Albuterol Sulfate (*Sp) Aerosol 1 Puff INHALATION 1 puff Q4-6H PRN Administration Shortness Of Breath Amlodipine Besylate 5 mg 05/05/22 09:00 05/09/22 08:09 Amlodipine Besylate 5 Mg Tablet PO 5 mg DAILY ERICA Administration Aspirin 325 mg 05/05/22 21:00 05/09/22 08:09 Aspirin 325 Mg Enteric Tablet PO 325 mg Q12HR ERICA Administration Ergocalciferol 50,000 unit 05/09/22 09:00 05/09/22 08:08 Ergocalciferol 50,000 Unit Capsule PO 50,000 unit Mo@0900 ERICA Administration Famotidine 20 mg 05/05/22 21:00 05/09/22 08:08 Famotidine 20 Mg Tablet PO 20 mg Q12HR ERICA Administration Gabapentin 300 mg 05/05/22 09:00 05/09/22 08:08 Gabapentin 300 Mg Capsule PO 300 mg TID ERICA Administration Vancomycin HCl 1,500 mg in 500 mls @ 333.333 mls/hr 05/07/22 12:00 05/09/22 00:24 Vancomycin 1,500 Mg/D5w 500 Ml IVPB 333.33 mls/hr Q18H ERICA Administration Irbesartan 150 mg 05/05/22 09:00 05/09/22 08:10 Irbesartan 150 Mg Tablet PO 150 mg DAILY ERICA Administration Miscellaneous Information 1 eac
--- NOTE | 2022-05-09 11:25 | PM.DS ---
DS: Admitting Diagnosis Discharge Date 04/2022 Admitting Diagnosis Cellulitis right knee DS: Discharge Diagnosis Discharge Diagnosis (1) Septic prepatellar bursitis of right knee: Code(s): M71.161 - Other infective bursitis, right knee Status: Acute Assessment and Plan: Cultures and sensitivities noted. Clindamycin on discharge. Follow-up with Ortho (2) Hypertension: Code(s): I10 - Essential (primary) hypertension Status: Acute Assessment and Plan: Monitor blood pressure DS: Summary Hospital Course Hospital Course: See discharge planning diagnoses Time Spent with Patient Time attestation: Total time spent providing and/or coordinating discharge services: Exam Narrative: Constitutional: Patient is well-nourished in no acute distress. Patient is alert and oriented x3 HEENT: Moist mucous membranes. No scleral icterus. No lymphadenopathy. Neck: No carotid bruits noted no JVD noted Lungs: Lung sounds are clear to auscultation bilaterally. No accessory muscle use. No rhonchi, rales, or wheezes noted. Cardiovascular: Apical pulse is regular rate and rhythm. S1-S2 noted, no S3 or S4 noted. No gallops, murmurs, or rubs noted. Abdomen: Soft, round, and nontender. No palpable masses. Extremities: No edema. Nontender. Patient's right knee does have a large amount of swelling noted. There is a scabbed area and a small amount of serosanguineous drainage. There is some mild erythema. Skin: No rashes or lesions. Warm and dry. Patient has a scab noted to right knee Neurological: No focal neurological deficits. Cranial nerves II-XII grossly intact. Psychiatric: Cooperative, appropriate mood, and affect DS: Data Data Completed and Pending Labs on day of discharge: Labs from last 24 hours 05/09/22 05/08/22 07:29 22:55 Creatinine 0.60 L Estim Creat Clear Calc 113 Estimated GFR > 60 Vancomycin Trough 13.4 Preliminary micro results at discharge 05/05/22 15:20 Anaerobic Culture - Preliminary Knee Right Discharge Plan Discharge Attending physician on discharge: Dell Cannon Consulting providers: Mao Dangelo Discharging Clinician: Dell Cannon Patient Disposition: Home, Self-Care Activity: no preference Diet: as tolerated Wound Care Instructions: change dressing daily and other - see discharge instructions Discharge Instructions: For Dr. Dangelo: Please change the dressing with a nonstick Telfa daily, keep the incision clean and dry. Please call our office at [phone] to schedule an appointment in 2 weeks for suture removal Please use your walker as a gait aid Patient Instructions: Antibiotic Form Stand Alone Forms: General Discharge Information Follow-up/Referrals: Jose Mott, DONNAC [Advanced Practice Nurse] - ( Follow up in 2 weeks) Discharge Medications: New oxycodone-acetaminophen 5-325 mg Tablet 1 tablet PO Q4H PRN (Reason: Pain Rated 4-10 ) Qty: 20 0RF clindamycin HCl 300 mg capsule 300 mg PO Q8H Qty: 21 0RF Continued umeclidinium 62.5 mcg/actuation blister with device 1 inh inhalation DAILY oxycodone 5 mg capsule 5 mg PO Q8H PRN (Reason: Pain) amlodipine 5 mg tablet 5 mg PO DAILY gabapentin 300 mg capsule 300 mg PO TID sertraline 100 mg tablet 100 mg PO DAILY albuterol sulfate [Ventolin HFA] 90 mcg/actuation HFA aerosol inhaler 1 inh inhalation Q4-6H PRN (Reason: Shortness Of Breath) Qty: 8.5 1RF ergocalciferol (vitamin D2) 50,000 unit Tablet 50,000 unit PO WEEKLY Rx Instructions: pt takes on mondays ropinirole 1 mg tablet 1 mg PO TID Qty: 30 0RF phenytoin sodium extended [Dilantin Extended] 100 mg capsule 200 mg PO BID Qty: 30 0RF irbesartan 150 mg tablet 150 mg PO DAILY Qty: 30 0RF zolpidem [Ambien] 10 mg tablet 5 mg PO HS PRN (Reason: Insomnia) Qty: 30 0RF albuterol sulfate 2.5 mg /
== END 2022-05-09 11:56 | disposition home or self-care (01) | DRG 502 ==
LOC: ANHED 16:35 → ANH2MED 16:36
PROVIDERS: Nurse Practitioner Adult Health; Orthopaedic Surgery; Admitting Provider Internal Medicine; Emergency Provider Emergency Medicine; PCP Emergency Medicine; Visit Provider Chiropractor
PROC: 0JDN0ZZ Extraction of Right Lower Leg Subcutaneous Tissue and Fascia, Open Approach (ICD-10-PCS; principal; 2022-05-05 15:00)
DX: M71.161 Other infective bursitis, right knee (principal); B95.62 Methicillin resistant Staphylococcus aureus infection as the cause of diseases classified elsewhere; I10 Essential (primary) hypertension; K74.60 Unspecified cirrhosis of liver; G47.33 Obstructive sleep apnea (adult) (pediatric); K21.9 Gastro-esophageal reflux disease without esophagitis; F32.A Depression, unspecified; M47.26 Other spondylosis with radiculopathy, lumbar region; M15.9 Polyosteoarthritis, unspecified; G40.909 Epilepsy, unspecified, not intractable, without status epilepticus; F95.2 Tourette's disorder; K40.90 Unilateral inguinal hernia, without obstruction or gangrene, not specified as recurrent; J44.9 Chronic obstructive pulmonary disease, unspecified; Z85.46 Personal history of malignant neoplasm of prostate; E66.9 Obesity, unspecified; Z68.36 Body mass index [BMI] 36.0-36.9, adult
CPT/HCPCS: 36415; 71046; 80048; 80053; 80202; 82565; 83735; 85025; 85610; 85652; 85730; 86140; 87070; 87075; 87147; 87181; 87186; 87205; 93005; 94640; 97110; 97116; 97161; 97165; 97530; 97535; 99285; A9270; G0378; J0690; J2405; J2704; J3010; J3370; J7030; J7120

== ENCOUNTER 2022-05-13 13:08 | Inpatient (IN) | payer MEDICARE, SELFPAY ==
[2022-05-11 14:36] VITALS: BMI 35.9
--- NOTE | 2022-05-11 15:05 | PC.NURSE ---
Report to the Outpatient Waiting Room, entrance under the green pavilion located off [facility], at time __10:30AM on date __05/12/22 . OR Time: __12:30PM . - You and your visitor will be asked a series of questions to screen for COVID 19 for your protection. - Only one visitor is allowed at this time. - The patient visitor is requested to leave or wait in car when not with patient. - A mask is required within the hospital. Patients may have clear liquids (water, carbonated beverages, clear teas, apple juice) until 3 hours prior to surgery with a maximum of 20 ounces. - No food from midnight until time of surgery Take the following medications with a SIP of water the morning of surgery: ___AMLODIPINE, CLINDAMYCIN, BREO ELLIPTA, GABAPENTIN, OXYCODONE, PHENYTOIN, ALBUTEROL INHALER OR NEBULIZER NEEDED Medications to discontinue per physician HOLD ALL VITAMINS/SUPPLEMENTS 3 DAYS PRE-OP Date to take last dose 05/11/22 Please no make-up, nail pakistani, hairspray, perfume, deodorant, or body powder the day of surgery. No jewelry (including any body piercings) or valuables the day of surgery, leave them at home. Please take a shower or bath the night before, or the morning of, surgery with an antibacterial soap. Wear comfortable, loose fitting clothing. Children are encouraged to wear pajamas. - Jewelry must be removed prior to entering the operating room. Rings and piercings that are not removed may be cut off. - The hospital will not accept responsibility for valuables. - Please leave all valuables, including medications, at home the day of surgery. If you are going home after surgery, a licensed driver's license reviewing officer must drive you home. - NO public transportation without another adult. - We recommend that an adult stay with you for 24 hours following discharge. - We also recommend that you do not drive, make important decision, drink alcoholic beverages, or take any drugs that were not prescribed by your health care provider for at least 24 hours after your discharge time. Follow any additional instructions given to you from your surgeon. If you or anyone in your household have experienced Covid symptoms in the past week, please notify your surgeon or the nurse liaison at the phone number below for possible testing. Telephone instructions given to _PATIENT AND WIFE__and asked if any additional questions and then verbalized understanding. Patient advised to call surgeon office or pre surgery nurse liaison [phone] if any additional questions.
[2022-05-12] VITALS (15 sets, daily range): BP systolic 147–177; BP diastolic 70–94; PULSE 61–90; RESP 14–20; TEMP 36.3–37.3; O2SAT 95–99; BMI 35.9
[2022-05-12 12:13] LABS: Phenytoin Dilantin 9 ug/mL (10-20)
--- NOTE | 2022-05-12 12:20 | WPDANESEPPF ---
Anes - Initial Pre Proc Eval Procedure: Operation Date: 05/12/22 12:30 Proposed Procedures p Debridement Right Knee, Wound Vac Application - Mao Dangelo MD Date/Time: 05/12/22 12:20 Surgeon: Mao Dangelo MD Pre Op Diagnosis: septic prepatellar space right knee Patient Data Age: 71 Gender: M Height: 1.73 m Weight: 107.3 kg Last Vital Signs Temp 37.3 C 05/12/22 10:56 Pulse 70 05/12/22 10:56 Resp 16 05/12/22 10:56 BP 177/76 H 05/12/22 10:56 Pulse Ox 97 05/12/22 10:56 O2 Del Method Room Air 05/12/22 10:56 Allergies Allergy/AdvReac Type Severity Reaction Status Date / Time hydromorphone Allergy Mild TARDIVE Verified 05/12/22 10:59 DYSKINESIA, SEIZYRES alprazolam Allergy Unknown FACIAL Verified 05/12/22 10:59 DROOP bee venom protein (honey bee) Allergy Unknown SWELLING/ Verified 05/12/22 10:59 THROAT CLOSING iodine Allergy Unknown Rash Verified 05/12/22 10:59 Home Medications Medication Instructions Recorded Confirmed Type ergocalciferol (vitamin D2) 50,000 50,000 unit PO WEEKLY 02/12/21 05/12/22 History unit tablet phenytoin sodium extended 100 mg 200 mg PO BID #30 caps 03/21/21 05/12/22 Rx capsule (Dilantin Extended) albuterol sulfate 90 mcg/actuation 1 inh inhalation Q4-6H PRN 06/28/21 05/12/22 Rx aerosol inhaler (Ventolin HFA) Shortness Of Breath #8.5 grams amlodipine 5 mg tablet 5 mg PO QAM 02/16/22 05/12/22 History gabapentin 300 mg capsule 300 mg PO TID 02/16/22 05/12/22 History oxycodone 5 mg capsule 5 mg PO Q8H PRN Pain 02/16/22 05/12/22 History sertraline 100 mg tablet 100 mg PO HS 02/16/22 05/12/22 History clindamycin HCl 300 mg capsule 300 mg PO Q8H #21 caps 05/09/22 05/12/22 Rx albuterol sulfate 2.5 mg/3 mL 2.5 mg inhalation TID 05/11/22 05/12/22 History (0.083 %) solution for nebulization doxepin 25 mg capsule 1 cap PO HS 05/11/22 05/12/22 History fluticasone furoate 100 1 ea inhalation QAM 05/11/22 05/12/22 History mcg-vilanterol 25 mcg/dose inhalation powder (Breo Ellipta) irbesartan 150 mg tablet 150 mg PO HS 05/11/22 05/12/22 History pantoprazole 40 mg tablet,delayed 1 tablet PO BID 05/11/22 05/12/22 History release ropinirole 1 mg tablet 3 mg PO HS 05/11/22 05/12/22 History zolpidem 10 mg tablet (Ambien) 5 mg PO HS 05/11/22 05/12/22 History Laboratory Tests 05/12/22 11:19 Phenytoin 9 ug/mL L ug/mL (10-20) Patient hx anesthesia problems: none Family hx anesthesia problems: none Results Review: All pre-operative results and documents have been reviewed as part of the pre-operative evaluation. [facility] Past Medical History Medical History Acute blood loss anemia Anemia Arthritis Chronic narcotic use Cirrhosis COPD (chronic obstructive pulmonary disease) Depression GERD (gastroesophageal reflux disease) Hypertension Obesity Obstructive sleep apnea (~12/2020) Osteoarthritis of spine with radiculopathy, lumbar region Other abnormal glucose Pain of right hip joint Pancytopenia Primary osteoarthritis involving multiple joints Recurrent occipital headache Right groin pain Seizure disorder Seizures Special screening for malignant neoplasm of prostate Thrombocytopenia Tourette syndrome Trochanteric bursitis of right hip UGIB (upper gastrointestinal bleed) Unilateral inguinal hernia without obstruction or gangrene, recurrent URI, acute Surgical History Surgical History History of back surgery April 2020 History of elbow surgery History of knee surgery right prepatellar bursectomy 2011 Septic prepatellar bursitis of right knee Debridement May 05, 2022 Family History Family History Father Acute myocardial infarction Hypertension Mother Family history of thyroid disease Family history of obesity Acute myocardial i
--- NOTE | 2022-05-12 12:33 | WPDHPUPDATE1 ---
History and Physical Update Update Date/Time: 05/12/22 12:33 History and Physical has been reviewed, including an updated exam of the patient. There are NO changes in the patient's condition. Risks, benefits, and alternatives have been discussed and questions answered. Patient agrees to proceed with procedure.
[2022-05-12] MEDS: LACTATED RINGERS 1,000 ML 30 ML IV CONT (13:43)
--- NOTE | 2022-05-12 13:49 | W.PM.PROC2 ---
Procedure Note - Detailed Date of Procedure 05/12/22 Pre-op Diagnosis septic prepatellar space right knee Post-op Diagnosis Same Procedure Performed Debridement right prepatellar space with placement wound VAC Surgeon Mao Dangelo MD Anesthesia General Indications 1. Methicillin Resis Staph Aureus M.I.C. RX --------- --- Vancomycin 1 S Ciprofloxacin >=8 R Clindamycin <=0.25 S Levofloxacin >=8 R Erythromycin >=8 R Gentamycin <=0.5 S Oxacillin R Oxacillin-resistant staphylococci are resistant to all currently available beta-lactam antimicrobial agents with the possible exception of Ceftaroline. Tetracycline <=1 S Trimethoprim/Sulfamethoxazole >=320 R Moxifloxacin >=8 R Legend: S = Susceptible I = Intermediate R = Resistant NS = Not susceptible * = Not tested NR = Not reported NN = See antimicrobic comments Description of Procedure The patient was identified and proper site identified. He was taken to the operating room and transferred to the OR table placed him supine taking care to pad his torso and extremities. After general anesthetic induction and intubation a nonsterile tourniquet was placed high in the right thigh but was not used. The right lower extremity was prepped and draped in usual sterile fashion. Sutures removed and the incision reopened. The wound edges were freshened up. The base of the wound was explored. There was no communication with the knee joint. The loose granular tissue was then gently debrided with surgical scrub sponge and a curette. The wound was thoroughly irrigated. With the assistance of the wound nurse, the wound VAC was applied and put to suction. It had a good seal. Patient tolerated the procedure well. Estimated blood loss 20 milliliters. He did receive perioperative antibiotics. There were no known intraoperative complications. Estimated Blood Loss -20.0 Tourniquet Time 0 Packing Yes (Wound VAC) Pathology None sent Complications No immediate complications Condition Stable Disposition PACU [facility] Billing Surgery - Charge Forward: Surgery Billing ([id number])
[2022-05-12] MEDS: fentaNYL CITRATE INJ (*CRX) 100 MCG/2 ML VIAL 25 MCG IV PUSH ×2 (14:11→14:27)
--- NOTE | 2022-05-12 16:16 | ADMGEN ---
This patient, Marco Antonio Shirley, was admitted to Medical Room 344-01. Patient/family oriented to hospital policies and general routines including ID bracelet, bed and alarms, visiting hours, pain management, procedures, bathroom and other care routines, personal items, smoking policy, room service/diet, and visiting hours. Information on how to activate the Rapid Response Team has been discussed. Patient/Family are encouraged to report perceived risks to care and to ask questions if they do not understand what they are told or what they should do.
[2022-05-12] MEDS: ALBUTEROL SULFATE (*SP) AEROSOL 1 PUFF INHALATION (16:32)
[2022-05-12 16:45] LABS: Estimated CRCL calculation 86 ml/min; Estimated Glomerular Filt Rate > 60
--- NOTE | 2022-05-12 16:57 | PM.IMCN ---
Assessment and Plan Assessment and plan (1) Septic prepatellar bursitis of right knee: Code(s): M71.161 - Other infective bursitis, right knee Status: Acute Assessment and Plan: Marco Antonio Shirley is a 71 year old male patient was initially admitted on 05/04/2022 after he had fell and injured his Rt knee, patient was seen by his orthopedic and had I and D, wound culture grew MRSA patient was treated with vancomycin and discharged home on clindamycin, apparently patient fell and injured his would again, was seen by his orthopedic and would was cleaned and VAC is place, currently treated with vancomycin, currentely stats feeling better denies any pain or fever or chills, hospital group is consulted for medical management, will consult pharmacy id further recommendation, will continue to monitor and further recommendation to follow. (2) Hypertension: Code(s): I10 - Essential (primary) hypertension Status: Acute Assessment and Plan: will continue home regimen (3) Obstructive sleep apnea: Onset Date: ~12/2020 Code(s): G47.33 - Obstructive sleep apnea (adult) (pediatric) Status: Acute Assessment and Plan: patient remains clinically stable [facility] Data of Consult Consult date: 05/13/22 Requesting Physician: Mao Dangelo MD Primary Care Provider: Harshal Garcia MD Consult Narrative Narrative: Marco Antonio Shirley is a 71 year old male patient was initially admitted on 05/04/2022 after he had fell and injured his Rt knee, patient was seen by his orthopedic and had I and D, wound culture grew MRSA patient was treated with vancomycin and discharged home on clindamycin, apparently patient fell and injured his would again, was seen by his orthopedic and would was cleaned and VAC is place, currently treated with vancomycin, currentely stats feeling better denies any pain or fever or chills, hospital group is consulted for medical management, will consult pharmacy id further recommendation, will continue to monitor and further recommendation to follow. Review of Systems Constitutional: Constitutional: Reports as per [facility] Past Medical History Medical History Acute blood loss anemia Anemia Arthritis Chronic narcotic use Cirrhosis COPD (chronic obstructive pulmonary disease) Depression GERD (gastroesophageal reflux disease) Hypertension Obesity Obstructive sleep apnea (~12/2020) Osteoarthritis of spine with radiculopathy, lumbar region Other abnormal glucose Pain of right hip joint Pancytopenia Primary osteoarthritis involving multiple joints Recurrent occipital headache Right groin pain Seizure disorder Seizures Special screening for malignant neoplasm of prostate Thrombocytopenia Tourette syndrome Trochanteric bursitis of right hip UGIB (upper gastrointestinal bleed) Unilateral inguinal hernia without obstruction or gangrene, recurrent URI, acute Surgical History Surgical History History of back surgery April 2020 History of elbow surgery History of knee surgery right prepatellar bursectomy 2011 Septic prepatellar bursitis of right knee Debridement May 05, 2022 Family History Family History Father Acute myocardial infarction Hypertension Mother Family history of thyroid disease Family history of obesity Acute myocardial infarction Hypertension Sibling Brain aneurysm Cancer Other Cerebrovascular accident Family history of cardiovascular disease Social History Social History Smoking packs per day: 3 Smoking cigarettes per day: 60.0 Years smoked: 40 Smoking pack-years: 120.00 Smoking status: Former smoker Second hand tobacco smoke exposure: No Alcohol intake: former Alcohol use details: HEAVY DRINKER U
[2022-05-12] MEDS: SENNA/DOCUSATE SODIUM TABLET 2 TAB PO (17:28)
[2022-05-12] MEDS: PANTOPRAZOLE 40 MG TABLET PO (17:29)
[2022-05-12] MEDS: GABAPENTIN 300 MG CAPSULE PO (17:29)
[2022-05-12] MEDS: PHENYTOIN SODIUM 100 MG EXTENDED RELEASE CAP 200 MG PO (17:29)
[2022-05-12] MEDS: FLUTICASONE/SALMETEROL 115-21 MCG INHALER 1 PUFF 2 PUFF INHALATION (20:13)
[2022-05-12] MEDS: ALBUTEROL SULFATE NEB 2.5 MG/3 ML INH INHALATION (20:13)
--- NOTE | 2022-05-12 20:30 | PC.NURSE ---
Diet advanced to heart healthy. Patient states that he is tolerating full liquids at this time. He denies bloating, nausea and vomiting. Current pain rated at a 2 with minimum swelling at site. Wound vac and neurovascular intact. Leg elevated.
[2022-05-12] MEDS: SERTRALINE HCL 50 MG TABLET 100 MG PO (20:31)
[2022-05-12] MEDS: IRBESARTAN 150 MG TABLET PO (20:32)
[2022-05-12] MEDS: ZOLPIDEM TARTRATE (*CRX) 5 MG TABLET PO (20:32)
[2022-05-12] MEDS: DOXEPIN HCL 25 MG CAPSULE PO (20:32)
[2022-05-12] MEDS: rOPINIRole HCL 1 MG TABLET 3 MG PO (20:32)
[2022-05-13] VITALS (10 sets, daily range): BP systolic 116–148; BP diastolic 61–75; PULSE 66–95; RESP 16–20; TEMP 36.1–36.6; O2SAT 93–97
--- NOTE | 2022-05-13 07:17 | PM.PNORT ---
Progress Note: A&P Assessment and Plan (1) Septic prepatellar bursitis of right knee: Code(s): M71.161 - Other infective bursitis, right knee Status: Acute Plan Patient's wound VAC has been approved. Awaiting home health to be set up so that he can go home this weekend and start the dressing changes this coming Monday. Will review antibiotics with the ID pharmacist again. Currently on vancomycin. Appreciate hospitalist and ID pharmacist input. This gentleman is anxious to go home. We did have a discussion about him being patient with the process of trying to provide him with optimal care and he does seem to understand this. Subjective Subjective Date/Time Seen: 05/13/22 07:17 Post Op day: 1 Principal diagnosis: Dx: Right knee prepatellar abscess Interval history: 71-year-old male postop day one debridement right knee prepatellar space with placement of wound VAC. Essentially having no pain in his right knee. Is anxious to go home. Exam Const: General: cooperative, alert and awake Orientation/consciousness: patient oriented x3 HENMT: Head: normal to inspection Ears: hearing grossly normal bilaterally Resp: Effort & Inspection: able to speak in complete sentences GI: Inspection: non-distended GI Palp: No abdominal tenderness Other: Baseline belly appearance Neuro: General: patient oriented x3 Speech: normal speech Extrem: Other: Exam of the right knee wound shows that there is an excellent seal to the wound VAC. Minimal serosanguineous drainage in the collection device. No surrounding erythema. Calves negative. Neurovascular status right lower extremity unremarkable. Psych: Mental Status: mental status grossly normal Objective Data Vital Signs Vital Signs: Vital Signs - 24 hr 05/12/22 10:56 05/12/22 13:43 05/12/22 13:45 Temperature 99.1 F 98.1 F Pulse Rate 70 66 70 Respiratory Rate 16 14 16 Blood Pressure 177/76 H 150/74 H 169/83 H Pulse Oximetry 97 98 98 Oxygen Delivery Room Air Simple Face Mask Simple Face Mask Oxygen Flow Rate 10 10 05/12/22 14:00 05/12/22 14:15 05/12/22 14:30 Temperature Pulse Rate 70 72 68 Respiratory Rate 18 19 16 Blood Pressure 171/85 H 165/80 H 162/94 H Pulse Oximetry 99 99 95 Oxygen Delivery Room Air Nasal Cannula Nasal Cannula Oxygen Flow Rate 2 2 05/12/22 14:45 05/12/22 15:00 05/12/22 15:15 Temperature Pulse Rate 67 66 63 Respiratory Rate 17 15 15 Blood Pressure 164/85 H 168/82 H 147/89 H Pulse Oximetry 97 96 98 Oxygen Delivery Nasal Cannula Nasal Cannula Nasal Cannula Oxygen Flow Rate 2 2 2 05/12/22 15:30 05/12/22 15:40 05/12/22 15:55 Temperature 97.9 F 97.6 F Pulse Rate 64 61 66 Respiratory Rate 15 18 18 Blood Pressure 169/75 H 167/87 H Pulse Oximetry 98 97 97 Oxygen Delivery Nasal Cannula Oxygen Flow Rate 2 05/12/22 16:25 05/12/22 20:16 05/12/22 20:32 Temperature 97.9 F 97.4 F L Pulse Rate 90 70 70 Respiratory Rate 20 16 18 Blood Pressure 157/72 H 149/70 H Pulse Oximetry 97 95 Oxygen Delivery Oxygen Flow Rate 05/13/22 05:17 Temperature 97 F L Pulse Rate 70 Respiratory Rate 16 Blood Pressure 148/71 H Pulse Oximetry 96 Oxygen Delivery Oxygen Flow Rate Intake/Output Intake/Output: Intake & Output 05/10/22 05/11/22 05/12/22 05/13/22 23:59 23:59 23:59 23:59 Intake Total 1600 / 1600 200 / 200 Output Total 500 / 500 600 / 600 Balance 1100 / 1100 -400 / -400 Meds/Results Medications: Active Medications Generic Name Dose Route Start Last Admin Trade Name Freq PRN Reason Stop Dose Admin Acetaminophen 650 mg 05/12/22 15:43 Acetaminophen 325 Mg Tablet PO Q6H PRN Pain Rated 1-3 Hydrocodone Bitart/Acetaminophen 1 tab 05/12/22 15:43 Hydrocodone/Acetaminophen (*Crx) 5-325 Mg Tablet PO Q3H PRN Pain Rated 4-6 Hydrocodone Bitart/Acetaminophen 2 tab 05/12/22 15:43 Hydrocodone/Acetaminophen (*Crx) 5-325 Mg Tablet PO 05/13/22
[2022-05-13] MEDS: ALBUTEROL SULFATE NEB 2.5 MG/3 ML INH INHALATION ×3 (09:04→20:25)
[2022-05-13] MEDS: FLUTICASONE/SALMETEROL 115-21 MCG INHALER 1 PUFF 2 PUFF INHALATION ×2 (09:04→20:25)
[2022-05-13] MEDS: PHENYTOIN SODIUM 100 MG EXTENDED RELEASE CAP 200 MG PO ×2 (09:29→16:59)
[2022-05-13] MEDS: PANTOPRAZOLE 40 MG TABLET PO ×2 (09:29→16:58)
[2022-05-13] MEDS: GABAPENTIN 300 MG CAPSULE PO ×3 (09:29→16:59)
[2022-05-13] MEDS: SENNA/DOCUSATE SODIUM TABLET 2 TAB PO ×2 (09:29→16:58)
[2022-05-13] MEDS: amLODIPine BESYLATE 5 MG TABLET PO (09:29)
[2022-05-13] MEDS: ENOXAPARIN 30 MG/0.3 ML SYRINGE SUB-Q ×2 (09:30→20:38)
--- NOTE | 2022-05-13 15:54 | PM.IMPN ---
Progress Note: A&P Assessment and Plan (1) Septic prepatellar bursitis of right knee: Code(s): M71.161 - Other infective bursitis, right knee Status: Acute Assessment and Plan: Marco Antonio Shirley is a 71 year old male patient was initially admitted on 05/04/2022 after he had fell and injured his Rt knee, patient was seen by his orthopedic and had I and D, wound culture grew MRSA patient was treated with vancomycin and discharged home on clindamycin, apparently patient fell and injured his would again, was seen by his orthopedic and would was cleaned and VAC is place, currently treated with vancomycin, currentely stats feeling better denies any pain or fever or chills, hospital group is consulted for medical management, will consult pharmacy id further recommendation, will continue to monitor and further recommendation to follow. 05/13/2022 interval history: patient remains clinically stable today seen by his orthopedic surgeon, his wound VAC has been approved by [employer] awaiting placement with home health nurse, also spoke with pharmacy id patient being treated with IV vancomycin will be discharged home on higher dose of clindamycin 600 mg q.8 weeks, will continue to monitor and further recommendation to follow. (2) Hypertension: Code(s): I10 - Essential (primary) hypertension Status: Acute Assessment and Plan: will continue home regimen (3) Obstructive sleep apnea: Onset Date: ~12/2020 Code(s): G47.33 - Obstructive sleep apnea (adult) (pediatric) Status: Acute Assessment and Plan: patient remains clinically stable Subjective Date/time seen: 05/13/22 15:54 Marco Antonio Shirley is a 71 year old male patient was initially admitted on 05/04/2022 after he had fell and injured his Rt knee, patient was seen by his orthopedic and had I and D, wound culture grew MRSA patient was treated with vancomycin and discharged home on clindamycin, apparently patient fell and injured his would again, was seen by his orthopedic and would was cleaned and VAC is place, currently treated with vancomycin, currentely stats feeling better denies any pain or fever or chills, hospital group is consulted for medical management, will consult pharmacy id further recommendation, will continue to monitor and further recommendation to follow. 05/13/2022 interval history: patient remains clinically stable today seen by his orthopedic surgeon, his wound VAC has been approved by insurance company awaiting placement with home health nurse, also spoke with pharmacy id patient being treated with IV vancomycin will be discharged home on higher dose of clindamycin 600 mg q.8 weeks, will continue to monitor and further recommendation to follow. Review of Systems Constitutional: Constitutional: Reports as per HPI Exam Narrative: Patient is comfortable, NAD HEENT: eyes are clear and none icteric LUNGS: normal respiratory effort HEART: RR S1S2 ABD: BS+, Soft and nontender Lower extremities: no edema, right knee with wound dressing SKIN: nonjaundiced Neuro: grossly intact. Objective Data Vital Signs Vital Signs: Vital Signs - 24 hr 05/12/22 15:55 05/12/22 16:25 05/12/22 20:16 Temperature 97.6 F 97.9 F Pulse Rate 66 90 70 Respiratory Rate 18 20 16 Blood Pressure 167/87 H 157/72 H Pulse Oximetry 97 97 Oxygen Delivery 05/12/22 20:32 05/13/22 05:17 05/13/22 08:21 Temperature 97.4 F L 97 F L Pulse Rate 70 70 Respiratory Rate 18 16 Blood Pressure 149/70 H 148/71 H Pulse Oximetry 95 96 Oxygen Delivery Room Air 05/13/22 09:00 05/13/22 09:09 05/13/22 14:00 Temperature 97.8 F Pulse Rate 80 87 86 Respiratory Rate 20 20 20 Blood Pressure 116/61 Pulse Oximetry 97 Oxygen Delivery Intake/Output Intake/Output: Intake & Output 05/10/22 05/11/22 05/12/22 05/13/22 23:59 23:59 23:59 23:59 Intake Total 1600 960 Output Total 500 1975 Balance
[2022-05-13 19:48] LABS: Vancomycin Trough 19.2 ug/mL (10.0-20.0)
[2022-05-13] MEDS: IRBESARTAN 150 MG TABLET PO (20:38)
[2022-05-13] MEDS: rOPINIRole HCL 1 MG TABLET 3 MG PO (20:38)
[2022-05-13] MEDS: SERTRALINE HCL 50 MG TABLET 100 MG PO (20:38)
[2022-05-13] MEDS: DOXEPIN HCL 25 MG CAPSULE PO (20:39)
[2022-05-13] MEDS: ZOLPIDEM TARTRATE (*CRX) 5 MG TABLET PO (20:39)
[2022-05-14 05:24] VITALS: BP 147/66; PULSE 69; RESP 18; TEMP 36.7; O2SAT 100
[2022-05-14] MEDS: GABAPENTIN 300 MG CAPSULE PO (09:31)
[2022-05-14] MEDS: PHENYTOIN SODIUM 100 MG EXTENDED RELEASE CAP 200 MG PO (09:31)
[2022-05-14] MEDS: SENNA/DOCUSATE SODIUM TABLET 2 TAB PO (09:31)
[2022-05-14] MEDS: PANTOPRAZOLE 40 MG TABLET PO (09:31)
[2022-05-14] MEDS: ENOXAPARIN 30 MG/0.3 ML SYRINGE SUB-Q (09:32)
[2022-05-14] MEDS: amLODIPine BESYLATE 5 MG TABLET PO (09:32)
--- NOTE | 2022-05-14 09:50 | PM.DS ---
DS: Admitting Diagnosis Discharge Date May 14, 2022 Admitting Diagnosis septic prepatellar space right knee DS: Discharge Diagnosis Discharge Diagnosis (1) Septic prepatellar bursitis of right knee: Code(s): M71.161 - Other infective bursitis, right knee Status: Acute DS: Summary Hospital Course Reason for hospitalization: wound management following surgical debridement Hospital Course: Following the patient's debridement and application of the wound VAC he was admitted to the floor and did very well. The wound VAC was changed. There was virtually no drainage coming from it and the wound edges look very good. Hospitalist was consulted but no further recommendations for medical management were needed. Patient being discharged home with home health nursing for 3 times a week change of the wound VAC. He also is going to have his clindamycin increase from 300 mg p.o. q.8 hours to 600 mg p.o. q.8 hours after consultation with the ID pharmacist. Follow-up with me will be in about two weeks. Status at Discharge Cognitive/behavioral status at discharge: Baseline/ normal Time Spent with Patient Time attestation: Total time spent providing and/or coordinating discharge services: Exam Narrative: Patient is alert, oriented and anxious to go home. Const: General: cooperative, alert and awake Orientation/consciousness: patient oriented x3 HENMT: Head: normal to inspection Ears: hearing grossly normal bilaterally Resp: Effort & Inspection: able to speak in complete sentences GI: Inspection: non-distended GI Palp: No abdominal tenderness Neuro: General: patient oriented x3 Extrem: Other: Exam of the right knee shows good seal on the wound VAC. Skin edges are pink and viable with no erythema. Grossly neurovascular status right lower extremity is intact. Calves negative. Exam otherwise unremarkable. Psych: Mental Status: mental status grossly normal DS: Data Data Completed and Pending Labs on day of discharge: Labs from last 24 hours 05/13/22 19:03 Vancomycin Trough 19.2 Discharge Plan Discharge Attending physician on discharge: Mao Dangelo Consulting providers: Jovanny Mckeon Discharging Clinician: Mao Dangelo Anticipated Discharge Date/Time: 05/14/22 10:00 Patient Disposition: Home, Self-Care Activity: no shower, no driving and other - see discharge instructions Diet: regular Wound Care Instructions: other - see discharge instructions Discharge Instructions: Care Coordination: Patient to have [facility] for wound care and PT/OT. They can be reached at [phone] and they will follow up with you to start dressing changes on Monday May 16, 2022. Wound vac settings: Black foam only. Low Continuous pressure at -125mmHg. Dressing to be changed three times a week. Please use a walker director multimedia. Okay to bear full weight on this. Please do not sit with the knee in a significantly flexed position so as to not stress the tissues on the front part of your knee. You will have to sponge bathe. The wound apparatus needs to be kept completely dry. No driving until the wound VAC has been completely discontinued. This may be several weeks. No working for the time being either. Follow-up with my office on May 26, 2022. Call with any questions prior to follow-up. I would like for you to use a coated 325 milligram aspirin daily for eight weeks as a blood thinner. Please contact my office with any wound related questions prior to follow-up that the home health nurses are unable to assist you with. The number is: Be sure to take the antibiotics as discussed. The dosages 600 milligrams every 8 hours, which is 3 times a day. A good 8 hours schedule is: 6 am - 2 pm - 10 pm. If you have any discomfort, [id number] Tylenol should be sufficient. Follow the labeling instructions. Patient Instructions: Antibioti
--- NOTE | 2022-05-14 10:07 | PM.IMPN ---
Progress Note: A&P Assessment and Plan (1) Septic prepatellar bursitis of right knee: Code(s): M71.161 - Other infective bursitis, right knee Status: Acute Assessment and Plan: Marco Antonio Shirley is a 71 year old male patient was initially admitted on 05/04/2022 after he had fell and injured his Rt knee, patient was seen by his orthopedic and had I and D, wound culture grew MRSA patient was treated with vancomycin and discharged home on clindamycin, apparently patient fell and injured his would again, was seen by his orthopedic and would was cleaned and VAC is place, currently treated with vancomycin, currentely stats feeling better denies any pain or fever or chills, hospital group is consulted for medical management, will consult pharmacy id further recommendation, will continue to monitor and further recommendation to follow. 05/13/2022 interval history: patient remains clinically stable today seen by his orthopedic surgeon, his wound VAC has been approved by insurance [employer] awaiting placement with home health nurse, also spoke with pharmacy id patient being treated with IV vancomycin will be discharged home on higher dose of clindamycin 600 mg q.8 weeks, will continue to monitor and further recommendation to follow. 05/14/2022 interval history: patient remains clinically stable today seen by his orthopedic surgeon, his wound VAC has been approved by insurance [employer] awaiting placement with home health nurse, on 05/13 also spoke with pharmacy id patient being treated with IV vancomycin will be discharged home on higher dose of clindamycin 600 mg q.8 2weeks, This morning patient is seen his orthopedic surgeon and discuss patient will be discharged today and will follow-up his orthopedic surgeon in 2 weeks further planning and recommendation. (2) Hypertension: Code(s): I10 - Essential (primary) hypertension Status: Acute Assessment and Plan: will continue home regimen (3) Obstructive sleep apnea: Onset Date: ~12/2020 Code(s): G47.33 - Obstructive sleep apnea (adult) (pediatric) Status: Acute Assessment and Plan: patient remains clinically stable Subjective Date/time seen: 05/14/22 10:07 05/14/2022 interval history: patient remains clinically stable today seen by his orthopedic surgeon, his wound VAC has been approved by insurance [employer] awaiting placement with home health nurse, on 05/13 also spoke with pharmacy id patient being treated with IV vancomycin will be discharged home on higher dose of clindamycin 600 mg q.8 2weeks, This morning patient is seen his orthopedic surgeon and discuss patient will be discharged today and will follow-up his orthopedic surgeon in 2 weeks further planning and recommendation. Review of Systems Constitutional: Constitutional: Reports as per HPI Exam Narrative: Patient is comfortable, NAD HEENT: eyes are clear and none icteric LUNGS: normal respiratory effort HEART: RR S1S2 ABD: BS+, Soft and nontender Lower extremities: no edema, right knee with wound dressing SKIN: nonjaundiced Neuro: grossly intact. Objective Data Vital Signs Vital Signs: Vital Signs - 24 hr 05/13/22 14:00 05/13/22 16:05 05/13/22 16:11 Temperature 97.8 F Pulse Rate 86 66 74 Respiratory Rate 20 20 20 Blood Pressure 116/61 Pulse Oximetry 97 Oxygen Delivery 05/13/22 20:20 05/13/22 20:27 05/13/22 20:31 Temperature Pulse Rate 84 84 86 Respiratory Rate 20 20 Blood Pressure Pulse Oximetry 93 Oxygen Delivery Room Air 05/13/22 21:35 05/14/22 05:24 Temperature 97.8 F 98.1 F Pulse Rate 95 69 Respiratory Rate 18 18 Blood Pressure 125/75 147/66 H Pulse Oximetry 95 100 Oxygen Delivery Intake/Output Intake/Output: Intake & Output 05/11/22 05/12/22 05/13/22 05/14/22 23:59 23:59 23:59 23:59 Intake Total 1600 1920 1580 Output Total 500 2275 1400 Balance 1100 -355 180 Meds/Results Medications
== END 2022-05-14 12:00 | disposition home health service (06) | DRG 502 ==
LOC: ANHSURGERY 13:12 → ANH3MED 13:12
PROVIDERS: Anesthesiology; Admitting Provider Orthopaedic Surgery; PCP Emergency Medicine; Visit Provider Orthopaedic Surgery
PROC: 0JDN0ZZ Extraction of Right Lower Leg Subcutaneous Tissue and Fascia, Open Approach (ICD-10-PCS; principal; 2022-05-12 12:30)
DX: M71.161 Other infective bursitis, right knee (principal); I10 Essential (primary) hypertension; G47.33 Obstructive sleep apnea (adult) (pediatric); J44.9 Chronic obstructive pulmonary disease, unspecified; G40.909 Epilepsy, unspecified, not intractable, without status epilepticus; Z79.899 Other long term (current) drug therapy; Z87.891 Personal history of nicotine dependence
CPT/HCPCS: 36415; 80185; 80202; 82565; 94640; 97161; 97165; 97535; A9270; J1100; J1650; J2405; J2704; J3010; J3370; J7120

== ENCOUNTER 2022-06-01 17:00 | Inpatient (IN) | payer MEDICARE, SELFPAY ==
--- NOTE | ~2022-06-01 | US_ITS ---
EXAMINATION:US venous doppler LE RT INDICATION:Leg edema. Erythema. TECHNIQUE: Multiple grayscale, color flow and Doppler images of the right lower extremity deep venous systems were obtained and reviewed. COMPARISON:03/16/2021 FINDINGS: The common femoral, superficial femoral and popliteal veins demonstrate normal respiratory variation, augmentation and compressibility. Color flow is also seen within the posterior tibial, pe roneal, greater saphenous and profunda veins. IMPRESSION: 1: No lower extremity deep venous thrombosis. Reviewed, dictated and finalized at location A.
[2022-06-01 17:19] VITALS: BP 150/79; PULSE 103; RESP 18; TEMP 36.9; O2SAT 97
--- NOTE | 2022-06-01 18:01 | ED.EXTPRO ---
HPI - Extremity Problem General Chief complaint: Extremity Problem,Nontraumatic <Fawn Spear PA-C - Last Filed: 06/01/22 20:32> Stated complaint: leg infection <CHELSEA Gaines Last Filed: 06/01/22 20:32> Time Seen by Provider: 06/01/22 17:48 <CHELSEA Gaines Last Filed: 06/01/22 20:32> Source: patient <CHELSEA Gaines Last Filed: 06/01/22 20:32> Mode of arrival: ambulatory <CHELSEA Gaines Last Filed: 06/01/22 20:32> Limitations: no limitations <CHELSEA Gaines Last Filed: 06/01/22 20:32> History of Present Illness HPI Narrative: This is a 71-year-old male that presents to the emergency department for right lower extremity edema and erythema. Ongoing over the last couple of days. Patient had washout of the right knee for septic prepatellar bursitis. About 3 weeks ago. He had a follow-up appointment and seem to be doing well. He was instructed to finish his clindamycin and was scheduled for another follow-up appointment. He has had worsening redness and swelling which prompted him to be seen today. Denies fevers. <Fawn Spear PA-C - Last Filed: 06/01/22 20:32> Related Data Home medications: Home Medications Medication Instructions Recorded Confirmed ergocalciferol (vitamin D2) 50,000 50,000 unit PO WEEKLY 02/12/21 05/26/22 unit tablet amlodipine 5 mg tablet 5 mg PO QAM 02/16/22 05/26/22 gabapentin 300 mg capsule 300 mg PO TID 02/16/22 05/26/22 sertraline 100 mg tablet 100 mg PO HS 02/16/22 05/26/22 albuterol sulfate 2.5 mg/3 mL 2.5 mg inhalation TID 05/11/22 05/26/22 (0.083 %) solution for nebulization doxepin 25 mg capsule 1 cap PO HS 05/11/22 05/26/22 fluticasone furoate 100 1 ea inhalation QAM 05/11/22 05/26/22 mcg-vilanterol 25 mcg/dose inhalation powder (Breo Ellipta) irbesartan 150 mg tablet 150 mg PO HS 05/11/22 05/26/22 pantoprazole 40 mg tablet,delayed 1 tablet PO BID 05/11/22 05/26/22 release ropinirole 1 mg tablet 3 mg PO HS 05/11/22 05/26/22 zolpidem 10 mg tablet (Ambien) 5 mg PO HS 05/11/22 05/26/22 <Fawn Spear PA-C - Last Filed: 06/01/22 20:32> Allergies/Adverse reactions: Allergies Allergy/AdvReac Type Severity Reaction Status Date / Time hydromorphone Allergy Mild TARDIVE Verified 05/26/22 10:16 DYSKINESIA, SEIZYRES alprazolam Allergy Unknown FACIAL Verified 05/26/22 10:16 DROOP bee venom protein (honey bee) Allergy Unknown SWELLING/ Verified 05/26/22 10:16 THROAT CLOSING iodine Allergy Unknown Rash Verified 05/26/22 10:16 <Fawn Spear PA-C - Last Filed: 06/01/22 20:32> Review of Systems Review of Systems: CONSTITUTIONAL: Denies fever SKIN: Reports redness and swelling <Fawn Spear PA-C - Last Filed: 06/01/22 20:32> All systems reviewed & are unremarkable except as noted in HPI and below <Fawn Spear PA-C - Last Filed: 06/01/22 20:32> [facility] Past Medical History Medical History: Medical History Acute blood loss anemia Anemia Arthritis Chronic narcotic use Cirrhosis COPD (chronic obstructive pulmonary disease) Depression GERD (gastroesophageal reflux disease) Hypertension Obesity Obstructive sleep apnea (~12/2020) Osteoarthritis of spine with radiculopathy, lumbar region Other abnormal glucose Pain of right hip joint Pancytopenia Primary osteoarthritis involving multiple joints Recurrent occipital headache Right groin pain Seizure disorder Seizures Special screening for malignant neoplasm of prostate Thrombocytopenia Tourette syndrome Trochanteric bursitis of right hip UGIB (upper gastrointestinal bleed) Unilateral inguinal hernia without obstruction or gangrene, recurrent URI, acute <Fawn Spear PA-C - Last Filed: 06/01/22 20:32> Surgical History Surgical History: Surgical History Histo
[2022-06-01] MEDS: ALBUTEROL SULFATE NEB 2.5 MG/3 ML INH 5 MG INHALATION (18:08)
[2022-06-01] MEDS: IPRATROPIUM BR 0.02% INH SOLN 0.5 MG/2.5 ML VIAL INHALATION (18:08)
[2022-06-01 18:30] LABS: Basophils Percent Auto 0.3 % (0.2-1.2); Eosinophils Absolute Auto 0.1 K/mm3 (0-0.3); Eosinophils Percent Auto 0.6 % (0-4.4); Hematocrit 38.6 % (42.0-52.0); Hemoglobin 12.8 g/dL (14.0-18.0); Immature Granulocyte Absolute 0.05 K/mm3 (0.00-0.031); Immature Granulocyte Percent A 0.5 % (0-0.5); Immature Platelet Fraction Pct 4.2 % (0.9-11.2); Lymphocytes Absolute Auto 0.53 K/mm3 (0.9-3.2); Lymphocytes Percent Auto 5.5 % (18.3-44.2); Mean Corpuscular HGB Conc 33.2 g/dl (32-36); Mean Corpuscular Hemoglobin 33.3 pg (26-34); Mean Corpuscular Volume 100.5 fl (80-100); Mean Platelet Volume 10.1 fl (7.4-10.4); Monocytes Absolute Auto 0.9 K/mm3 (0.1-0.6); Monocytes Percent Auto 8.9 % (2.6-8.5); Neutrophils Absolute Auto 8.1 K/mm3 (1.3-6.7); Neutrophils Percent Auto 84.2 % (45.5-73.1); Platelet Count Result 110 k/mm3 (150-375); Red Blood Count 3.84 M/mm3 (4.6-6.20); Red Cell Distribution Width 14.2 % (11.5-14.5); White Blood Count 9.7 K/mm3 (4.5-10.0)
[2022-06-01 18:40] LABS: INR 1.2
[2022-06-01 18:41] LABS: Anion Gap 4 mmol/L (8-16); Blood Urea Nitrogen 23 mg/dL (9-20); Calcium 8.4 mg/dL (8.4-10.2); Carbon Dioxide 26 mmol/L (22-30); Chloride 100 mmol/L (98-107); Estimated CRCL calculation 70 ml/min; Estimated Glomerular Filt Rate > 60; Glucose 89 mg/dL (65-110); Partial Thromboplastin Time 27.7 SECONDS (22.3-36.8); Potassium 3.7 mmol/L (3.4-5.0); Sodium 130 mmol/L (137-145)
[2022-06-01 18:51] LABS: Lactic Acid Reflex 1.7 mmol/L (0.7-2.0)
[2022-06-01 19:13] VITALS: BP 132/78; PULSE 78; RESP 18; O2SAT 99
[2022-06-01 19:17] LABS: Erythrocyte Sedimentation Rate 41 mm/hr (0-20)
[2022-06-01 19:31] LABS: SARS-CoV-2 RNA PCR Negative
--- NOTE | 2022-06-01 19:34 | PM.IMHP ---
H&P: HPI History of Present Illness Date/Time: 06/01/22 19:34 Chief Complaint: Leg swelling. Narrative: This is a 71-year-old male with past medical history significant for COPD/emphysema, hypertension, gastroesophageal reflux disease, obstructive sleep apnea, degenerative joint disease, patient is status post right knee arthroscopic surgery for septic patella bursitis. Patient presents today to the emergency room due to right lower extremity swelling redness and tenderness for the last 3 days or so. Patient denies any generalized malaise, no fevers, no rigors, no chills, no nausea, no vomiting, no abdominal pain, no diarrhea, no cough, no sputum production, no shortness of breath. He noticed right lower extremity swelling redness tenderness worsening over the course of the last 3 days or so he completed a course of clindamycin in the outpatient setting after his right knee surgery. Preliminary workup was significant for C reactive protein 9, a venous Doppler did not show acute DVT. Patient has been admitted for further evaluation management and treatment.. Review of Systems Review of Systems: Right lower extremity swelling, tenderness, redness, warmth. Constitutional: Constitutional: Denies chills, Denies fatigue, Denies fever(s), Denies frequent falls, Denies night sweats and Denies poor appetite Eyes: Eyes: Denies change in vision ENT: Denies dysphagia, Denies vertigo, Denies dizziness, Denies odynophagia and Denies disequilibrium Cardiovascular: Cardiovascular: Denies chest pain, Denies syncope, Denies irregular heart rhythm, Denies lightheadedness, Denies palpitations and Denies dyspnea on exertion Respiratory: Respiratory: Denies change in phlegm color, Denies chest congestion, Reports cough and Denies excessive phlegm production Gastrointestinal: Gastrointestinal: Denies abdominal pain, Denies dyspepsia, Denies heartburn, Denies diarrhea, Denies nausea and Denies vomiting Genitourinary: Genitourinary: Denies dysuria Musculoskeletal: Musculoskeletal: Reports arthralgias, Reports joint swelling and Reports other (Right lower extremity swelling, warmth, tenderness.) Integumentary/Breasts: Skin/Breast: Reports swelling, Reports erythema, Reports skin pain, Reports skin swelling and Reports other (Right lower extremity) Neurologic: Denies vertigo, Denies dizziness, Denies focal weakness and Denies Sensory deficit (Neuro) Psychiatric: Psychiatric: Reports no additional psychiatric complaints and Reports as per HPI Endocrine: Endocrine: Denies cold intolerance, Denies fatigue, Denies flushing, Denies heat intolerance, Denies polyphagia, Denies polydipsia and Denies palpitations Hematologic/Lymphatic: Hematologic/Lymphatic: Reports no additional hematologic/lymphatic complaints and Reports as per HPI Allergic/Immunologic: Allergic/Immunologic: Reports no additional allergic/immunologic complaints and Reports as per HPI PMFSH Past Medical History Medical History Acute blood loss anemia Anemia Arthritis Chronic narcotic use Cirrhosis COPD (chronic obstructive pulmonary disease) Depression GERD (gastroesophageal reflux disease) Hypertension Obesity Obstructive sleep apnea (~12/2020) Osteoarthritis of spine with radiculopathy, lumbar region Other abnormal glucose Pain of right hip joint Pancytopenia Primary osteoarthritis involving multiple joints Recurrent occipital headache Right groin pain Seizure disorder Seizures Special screening for malignant neoplasm of prostate Thrombocytopenia Tourette syndrome Trochanteric bursitis of right hip UGIB (upper gastrointestinal bleed) Unilateral inguinal hernia without obstruction or gangrene, recurrent URI, acute Surgical History Surgical History History of back surgery April 2020 History of elbow surgery History of knee surgery right prepatellar bursectomy 2011 S
[2022-06-01 22:33] VITALS: BP 128/72; PULSE 70; RESP 20; O2SAT 99
[2022-06-01 23:38] VITALS: BMI 35.2
--- NOTE | 2022-06-01 23:41 | ADMGEN ---
This patient, Marco Antonio Shirley, was admitted to [facility] Surg Room 327-01. Patient/family oriented to hospital policies and general routines including ID bracelet, bed and alarms, visiting hours, pain management, procedures, bathroom and other care routines, personal items, smoking policy, room service/diet, and visiting hours. Information on how to activate the Rapid Response Team has been discussed. Patient/Family are encouraged to report perceived risks to care and to ask questions if they do not understand what they are told or what they should do.
[2022-06-01 23:43] VITALS: BP 127/72; PULSE 71; RESP 16; TEMP 36.6; O2SAT 97
[2022-06-01 23:44] VITALS: BMI 35.4
[2022-06-02 05:34] VITALS: BP 163/61; PULSE 73; RESP 16; TEMP 36.8; O2SAT 94
[2022-06-02 08:06] LABS: Estimated CRCL calculation 86 ml/min; Estimated Glomerular Filt Rate > 60
--- NOTE | 2022-06-02 08:06 | PM.CNOR ---
Assessment and Plan Assessment and plan (1) Septic prepatellar bursitis of right knee: Code(s): M71.161 - Other infective bursitis, right knee Status: Acute Plan 71-year-old male about 3 weeks out from septic prepatellar bursitis debridement. Wound VAC was placed at that time. The depth of the incision is less than 0.3 cm so this can be discontinued. The surgical site actually looks quite well with no purulence drainage. He was seen by wound care this morning. Plan for daily dressing changes per wound care instructions. Following. Additional Plan Thank you for the consult History of Present Illness HPI Consult date: 06/02/22 Chief complaint: Right lower extremity cellulitis Narrative: 71-year-old male admitted for right lower leg cellulitis. He had a washout of a septic prepatellar bursitis with a wound VAC placement on 05/12/2022. He was placed on clindamycin and had a brief lapse of not taking the medication for a few days. During follow-up last he was actually doing quite well with dressing changes on Monday and Fridays. He states the redness appeared just a few days ago. He denies any pain to the lower extremity. Review of Systems Constitutional: Constitutional: Reports as per [facility] Past Medical History Medical History Acute blood loss anemia Anemia Arthritis Chronic narcotic use Cirrhosis COPD (chronic obstructive pulmonary disease) Depression GERD (gastroesophageal reflux disease) Hypertension Obesity Obstructive sleep apnea (~12/2020) Osteoarthritis of spine with radiculopathy, lumbar region Other abnormal glucose Pain of right hip joint Pancytopenia Primary osteoarthritis involving multiple joints Recurrent occipital headache Right groin pain Seizure disorder Seizures Special screening for malignant neoplasm of prostate Thrombocytopenia Tourette syndrome Trochanteric bursitis of right hip UGIB (upper gastrointestinal bleed) Unilateral inguinal hernia without obstruction or gangrene, recurrent URI, acute Surgical History Surgical History History of back surgery April 2020 History of elbow surgery History of knee surgery right prepatellar bursectomy 2011 Septic prepatellar bursitis of right knee Debridement May 05, 2022 Debridement and application wound VAC May 12, 2022 Family History Family History Father Acute myocardial infarction Hypertension Mother Family history of thyroid disease Family history of obesity Acute myocardial infarction Hypertension Sibling Brain aneurysm Cancer Other Cerebrovascular accident Family history of cardiovascular disease Social History Social History Smoking packs per day: 3 Smoking cigarettes per day: 60.0 Years smoked: 40 Smoking pack-years: 120.00 Smoking status: Former smoker Tobacco type: cigarettes Second hand tobacco smoke exposure: No Alcohol intake: former Alcohol use details: HEAVY DRINKER UNTIL 15 YRS AGO, ~2006 Substance use: never Substance use type: does not use Other substance usage details: Former heavy drinker until 15 years ago Last use: 2006 Additional living arrangements comments: Spiritual care concerns: No Meds Home Medications and Allergies Home Medications Medication Instructions Recorded Confirmed Type ergocalciferol (vitamin D2) 50,000 50,000 unit PO WEEKLY 02/12/21 06/01/22 History unit tablet albuterol sulfate 90 mcg/actuation 1 inh inhalation Q4-6H PRN 06/28/21 06/02/22 Rx aerosol inhaler (Ventolin HFA) Shortness Of Breath #8.5 grams amlodipine 5 mg tablet 5 mg PO QAM 02/16/22 06/01/22 History gabapentin 300 mg capsule 300 mg PO TID 02/16/22 06/01/22 History sertraline 100 mg tablet 100 mg PO HS
[2022-06-02] MEDS: ENOXAPARIN 40 MG/0.4 ML SYRINGE SUB-Q (09:15)
[2022-06-02 14:00] VITALS: BP 173/61; PULSE 69; RESP 16; TEMP 36.6; O2SAT 97
--- NOTE | 2022-06-02 15:03 | PM.IMPN ---
Progress Note: A&P Assessment and Plan (1) Cellulitis: Qualifiers: Laterality: right Site of cellulitis: extremity Site of cellulitis of extremity: lower extremity Qualified Code(s): L03.115 - Cellulitis of right lower limb Code(s): L03.90 - Cellulitis, unspecified Status: Acute (2) Septic prepatellar bursitis of right knee: Code(s): M71.161 - Other infective bursitis, right knee Status: Acute (3) COPD (chronic obstructive pulmonary disease): Qualifiers: COPD type: unspecified COPD Qualified Code(s): J44.9 - Chronic obstructive pulmonary disease, unspecified Code(s): J44.9 - Chronic obstructive pulmonary disease, unspecified Status: Acute (4) Hypertension: Code(s): I10 - Essential (primary) hypertension Status: Acute (5) Obstructive sleep apnea: Onset Date: ~12/2020 Code(s): G47.33 - Obstructive sleep apnea (adult) (pediatric) Status: Acute (6) Seizure disorder: Code(s): G40.909 - Epilepsy, unspecified, not intractable, without status epilepticus Status: Acute Plan Right leg cellulitis vancomycin was started yesterday. Clindamycin off. Does not look overtly cellulitic. Duplex ultrasound is negative for DVT. Pancultured will follow the cultures. Wound care nurse following. Off wound VAC now. WBC count has been normal. Recent posttraumatic prepatellar bursitis needing washout done on 04/2022. Wound culture grew MRSA was treated with vancomycin was discharged on clindamycin. Wound VAC was placed at the time of discharge. Hypertension SIMA COPD GERD Seizure disorder DVT prophylaxis Code status full code Subjective Date/time seen: 06/02/22 15:03 Interval history: No overnight events. Feels well tried lower leg is swollen and red is been ongoing for last couple days. Recently had washout of the right knee for septic prepatellar bursitis about 3 weeks ago. Was on wound VAC. he has been on clindamycin. No fever reported. At worsening redness and swelling for wound care nurse however patient reports he has been feeling about the same Review of Systems Review of Systems: All systems reviewed & are unremarkable except as noted in HPI and below Exam Narrative: GENERAL: Well-appearing, well-nourished, and in no acute distress. HEAD: Normocephalic, atraumatic. EYES: EOMI. CHEST: No respiratory distress.? Mildly restricted with scattered wheezes.? No rales or rhonchi HEART: Regular rate and rhythm. No murmur heard. Normal peripheral pulses. EXTREMITIES: Normal range of motion.? Erythema with 1+ pitting edema noted to the right lower extremity from the knee down into the foot.? Normal DP pulse.? Normal sensation: Knee with open wound with no foul discharge or erythema noted SKIN: Warm, dry, no rash. NEURO: No focal deficits. Alert and oriented x3. PSYCH: Normal mood and affect Objective Data Vital Signs Vital Signs: Vital Signs - 24 hr 06/01/22 17:19 06/01/22 19:13 06/01/22 22:33 Temperature 98.5 F Pulse Rate 103 H 78 70 Respiratory Rate 18 18 20 Blood Pressure 150/79 H 132/78 128/72 Pulse Oximetry 97 99 99 Oxygen Delivery Room Air 06/01/22 23:43 06/02/22 05:34 06/02/22 14:00 Temperature 97.9 F 98.2 F 98 F Pulse Rate 71 73 69 Respiratory Rate 16 16 16 Blood Pressure 127/72 163/61 H 173/61 H Pulse Oximetry 97 94 97 Oxygen Delivery Intake/Output Intake/Output: Intake & Output 05/30/22 05/31/22 06/01/22 06/02/22 23:59 23:59 23:59 23:59 Intake Total 500 1200 Balance 500 1200 Meds/Results Medications: Active Medications Generic Name Dose Route Start Last Admin Trade Name Freq PRN Reason Stop Dose Admin Enoxaparin Sodium 40 mg 06/02/22 09:00 06/02/22 09:15 Enoxaparin 40 Mg/0.4 Ml Syringe SUB-Q 40 mg DAILY ERICA Administration Gentamicin Sulfate 1 applic 06/02/22 09:00 06/02/22 09:20 Gentamicin Sulfate 0.1% Oint 15 Gm Tube TOPICAL Not Given LINDA
--- NOTE | 2022-06-02 17:10 | PCRCNOTE ---
SPOKE WITH PT. ABOUT USING ONE OF OUR CPAP MACHINES. PT. STATES HE NO LONGER WEARS ONE; HIS NETWORK INTERN SAID HE NO LONGER NEEDS ONE.
[2022-06-02] MEDS: PANTOPRAZOLE 40 MG TABLET PO (17:26)
[2022-06-02] MEDS: GABAPENTIN 300 MG CAPSULE PO (17:27)
[2022-06-02] MEDS: ALBUTEROL SULFATE NEB 2.5 MG/3 ML INH INHALATION (19:45)
[2022-06-02] MEDS: FLUTICASONE/SALMETEROL 115-21 MCG INHALER 1 PUFF 2 PUFF INHALATION (19:45)
[2022-06-02 19:50] VITALS: PULSE 94; RESP 20
[2022-06-02 20:05] VITALS: PULSE 94; RESP 20
[2022-06-02] MEDS: rOPINIRole HCL 1 MG TABLET 3 MG PO (20:19)
[2022-06-02] MEDS: SERTRALINE HCL 50 MG TABLET 100 MG PO (20:19)
[2022-06-02] MEDS: IRBESARTAN 150 MG TABLET PO (20:19)
[2022-06-02] MEDS: DOXEPIN HCL 25 MG CAPSULE PO (20:19)
[2022-06-02] MEDS: ZOLPIDEM TARTRATE (*CRX) 5 MG TABLET PO (20:20)
[2022-06-02 22:00] VITALS: BP 110/66; PULSE 86; RESP 20; TEMP 35.9; O2SAT 91
[2022-06-03] VITALS (11 sets, daily range): BP systolic 115–149; BP diastolic 68–78; PULSE 64–99; RESP 16–20; TEMP 36.3–36.7; O2SAT 97–99
[2022-06-03 07:09] LABS: Vancomycin Trough 23.4 ug/mL (10.0-20.0)
[2022-06-03] MEDS: GABAPENTIN 300 MG CAPSULE PO ×3 (09:08→17:29)
[2022-06-03] MEDS: ENOXAPARIN 40 MG/0.4 ML SYRINGE SUB-Q (09:08)
[2022-06-03] MEDS: amLODIPine BESYLATE 5 MG TABLET PO (09:08)
[2022-06-03] MEDS: PANTOPRAZOLE 40 MG TABLET PO ×2 (09:08→17:29)
[2022-06-03] MEDS: GENTAMICIN SULFATE 0.1% OINT 15 GM TUBE 1 APPLIC TOPICAL (09:09)
--- NOTE | 2022-06-03 09:27 | PM.PNORT ---
Progress Note: A&P Assessment and Plan (1) Septic prepatellar bursitis of right knee: Code(s): M71.161 - Other infective bursitis, right knee Status: Acute Assessment and Plan: Surgical debridement site over the right prepatellar bursa continues to look clean. Continue to perform daily dressing changes per wound care orders. Plan to see him in the office on 06/13/2022 for wound check. Time Spent With Patient Time with patient: less than 15 minutes Subjective Subjective Date/Time Seen: 06/03/22 09:27 Principal diagnosis: Septic prepatellar bursitis Interval history: 71-year-old male with an uneventful overnight stay. He reports less pain in the leg along with less redness when compared to yesterday. Denies any drainage from the wound. No new complaints. Review of Systems Constitutional: Constitutional: Reports as per HPI Exam Const: General: comfortable and no acute distress Resp: Effort & Inspection: normal respiratory effort Skin: General skin exam: erythema (Right lower leg) Other: Surgical debridement site of the right prepatellar bursa continues to look clean with no purulent drainage. Extrem: Right lower extremity: edema Details: 1+ Psych: Mental Status: mental status grossly normal Objective Data Vital Signs Vital Signs: Vital Signs - 24 hr 06/02/22 14:00 06/02/22 19:50 06/02/22 20:05 Temperature 98 F Pulse Rate 69 94 94 Respiratory Rate 16 20 20 Blood Pressure 173/61 H Pulse Oximetry 97 06/02/22 22:00 06/03/22 06:00 Temperature 96.7 F L 97.3 F L Pulse Rate 86 64 Respiratory Rate 20 18 Blood Pressure 110/66 149/78 H Pulse Oximetry 91 98 Intake/Output Intake/Output: Intake & Output 05/31/22 06/01/22 06/02/22 06/03/22 23:59 23:59 23:59 23:59 Intake Total 500 2770 1040 Output Total 300 Balance 500 2770 740 Meds/Results Medications: Active Medications Generic Name Dose Route Start Last Admin Trade Name Freq PRN Reason Stop Dose Admin Albuterol 2.5 mg 06/02/22 20:00 06/02/22 19:45 Albuterol Sulfate Neb 2.5 Mg/3 Ml Inh INHALATION 2.5 mg TIDRT ERICA Administration Albuterol 1 puff 06/02/22 15:08 Albuterol Sulfate (*Sp) Aerosol 1 Puff INHALATION Q4-6H PRN Shortness Of Breath Amlodipine Besylate 5 mg 06/03/22 09:00 06/03/22 09:08 Amlodipine Besylate 5 Mg Tablet PO 5 mg QAM ERICA Administration Doxepin HCl 25 mg 06/02/22 21:00 06/02/22 20:19 Doxepin Hcl 25 Mg Capsule PO 25 mg HS ERICA Administration Enoxaparin Sodium 40 mg 06/02/22 09:00 06/03/22 09:08 Enoxaparin 40 Mg/0.4 Ml Syringe SUB-Q 40 mg DAILY ERICA Administration Gabapentin 300 mg 06/02/22 17:00 06/03/22 09:08 Gabapentin 300 Mg Capsule PO 300 mg TID ERICA Administration Gentamicin Sulfate 1 applic 06/02/22 09:00 06/03/22 09:09 Gentamicin Sulfate 0.1% Oint 15 Gm Tube TOPICAL 1 applic DAILY ERICA Administration Vancomycin HCl 1,500 mg in 500 mls @ 333.333 mls/hr 06/02/22 09:00 06/02/22 22:00 Vancomycin 1,500 Mg/D5w 500 Ml IVPB Infused Q12H ERICA Infusion Irbesartan 150 mg 06/02/22 21:00 06/02/22 20:19 Irbesartan 150 Mg Tablet PO 150 mg HS ERICA Administration Non-Formulary Medication 50,000 unit 06/13/22 09:00 Ergocalciferol (Vitamin D2) PO 07/13/22 08:59 Mo@0900 ERICA Pantoprazole Sodium 40 mg 06/02/22 17:00 06/03/22 09:08 Pantoprazole 40 Mg Tablet PO 40 mg BID ERICA Administration Ropinirole HCl 3 mg 06/02/22 21:00 06/02/22 20:19 Ropinirole Hcl 1 Mg Tablet PO 3 mg HS ERICA Administration Fluticasone/Salmeterol 2 puff 06/02/22 20:00 06/02/22 19:45 Fluticasone/Salmeterol 115-21 Mcg Inhaler 1 Puff INHALATION 2 puff Q12HRT ERICA Administration Sertraline HCl 100 mg 06/02/22 21:00 06/02/22 20:19 Sertraline Hcl 50 Mg Tablet PO 100 mg HS ERICA Administration Silver Nitrate 1 each 06/02/22 09:00 06/03/22 09:09 Aquacel Ag Advantage Bandage (*
[2022-06-03] MEDS: FLUTICASONE/SALMETEROL 115-21 MCG INHALER 1 PUFF 2 PUFF INHALATION ×2 (10:05→20:17)
[2022-06-03] MEDS: ALBUTEROL SULFATE NEB 2.5 MG/3 ML INH INHALATION ×3 (10:05→20:17)
--- NOTE | 2022-06-03 13:35 | PM.IMPN ---
Progress Note: A&P Assessment and Plan (1) Cellulitis: Qualifiers: Laterality: right Site of cellulitis: extremity Site of cellulitis of extremity: lower extremity Qualified Code(s): L03.115 - Cellulitis of right lower limb Code(s): L03.90 - Cellulitis, unspecified Status: Acute Assessment and Plan: Patient has been started on vancomycin Completed course of clindamycin in the outpatient setting for septic patella bursitis Blood cultures no growth to date Continue vancomycin for MRSA wound infection Continue to monitor Supportive care (2) Septic prepatellar bursitis of right knee: Code(s): M71.161 - Other infective bursitis, right knee Status: Acute Assessment and Plan: Unchanged Status post debridement Supportive care Continue to monitor Completed course of clindamycin in the outpatient setting (3) COPD (chronic obstructive pulmonary disease): Qualifiers: COPD type: unspecified COPD Qualified Code(s): J44.9 - Chronic obstructive pulmonary disease, unspecified Code(s): J44.9 - Chronic obstructive pulmonary disease, unspecified Status: Acute Assessment and Plan: Continue home meds Continue to monitor Received neb treatments in the emergency room (4) Hypertension: Code(s): I10 - Essential (primary) hypertension Status: Acute Assessment and Plan: Continue home meds Continue to monitor (5) Obstructive sleep apnea: Onset Date: ~12/2020 Code(s): G47.33 - Obstructive sleep apnea (adult) (pediatric) Status: Acute Assessment and Plan: CPAP at nighttime (6) Seizure disorder: Code(s): G40.909 - Epilepsy, unspecified, not intractable, without status epilepticus Status: Acute Assessment and Plan: Unchanged Continue home meds Subjective Date/time seen: 06/03/22 13:35 Interval history: No overnight events. Feels well tried lower leg is swollen and red is been ongoing for last couple days. Recently had washout of the right knee for septic prepatellar bursitis about 3 weeks ago. Was on wound VAC. he has been on clindamycin. No fever reported. At worsening redness and swelling for wound care nurse however patient reports he has been feeling about the same 06/03/2022 no overnight events wound looks good. The redness is improving. Denies any fever chills. Wound Care is following Review of Systems Review of Systems: All systems reviewed & are unremarkable except as noted in HPI and below Exam Narrative: GENERAL: Well-appearing, well-nourished, and in no acute distress. HEAD: Normocephalic, atraumatic. EYES: EOMI. CHEST: No respiratory distress.? Mildly restricted with scattered wheezes.? No rales or rhonchi HEART: Regular rate and rhythm. No murmur heard. Normal peripheral pulses. EXTREMITIES: Normal range of motion.? Erythema with 1+ pitting edema noted to the right lower extremity from the knee down into the foot.? Normal DP pulse.? Normal sensation: Knee with open wound with no foul discharge or erythema noted SKIN: Warm, dry, no rash. NEURO: No focal deficits. Alert and oriented x3. PSYCH: Normal mood and affect Objective Data Vital Signs Vital Signs: Vital Signs - 24 hr 06/02/22 14:00 06/02/22 19:50 06/02/22 20:05 Temperature 98 F Pulse Rate 69 94 94 Respiratory Rate 16 20 20 Blood Pressure 173/61 H Pulse Oximetry 97 Oxygen Delivery 06/02/22 22:00 06/03/22 06:00 06/03/22 10:00 Temperature 96.7 F L 97.3 F L Pulse Rate 86 64 99 Respiratory Rate 20 18 20 Blood Pressure 110/66 149/78 H Pulse Oximetry 91 98 Oxygen Delivery 06/03/22 10:09 06/03/22 10:08 06/03/22 08:00 Temperature Pulse Rate 98 Respiratory Rate 20 Blood Pressure Pulse Oximetry 97 99 Oxygen Delivery Room Air Room Air Intake/Output Intake/Output: Intake & Output 05/31/22 06/01/22 06/02/22 06/03/22 23:59 23:59 23:59 23:59 Intake Total 500 5026
[2022-06-03] MEDS: DOXEPIN HCL 25 MG CAPSULE PO (20:21)
[2022-06-03] MEDS: ZOLPIDEM TARTRATE (*CRX) 5 MG TABLET PO (20:21)
[2022-06-03] MEDS: rOPINIRole HCL 1 MG TABLET 3 MG PO (20:23)
[2022-06-03] MEDS: SERTRALINE HCL 50 MG TABLET 100 MG PO (20:23)
[2022-06-03] MEDS: IRBESARTAN 150 MG TABLET PO (20:25)
[2022-06-04] VITALS (11 sets, daily range): BP systolic 141–172; BP diastolic 56–87; PULSE 76–98; RESP 14–18; TEMP 36.4–36.7; O2SAT 94–98
[2022-06-04] MEDS: ALBUTEROL SULFATE NEB 2.5 MG/3 ML INH INHALATION ×3 (07:20→20:30)
[2022-06-04] MEDS: FLUTICASONE/SALMETEROL 115-21 MCG INHALER 1 PUFF 2 PUFF INHALATION ×2 (07:20→20:57)
--- NOTE | 2022-06-04 08:11 | PM.PNORT ---
Progress Note: A&P Assessment and Plan (1) Cellulitis: Qualifiers: Laterality: right Site of cellulitis: extremity Site of cellulitis of extremity: lower extremity Qualified Code(s): L03.115 - Cellulitis of right lower limb Code(s): L03.90 - Cellulitis, unspecified Status: Acute (2) Septic prepatellar bursitis of right knee: Code(s): M71.161 - Other infective bursitis, right knee Status: Acute Plan I believe that he should be able to go home tomorrow. He is going to be restarted on clindamycin 600 milligrams q.8 hours per my discussion with the ID pharmacist. I did discuss with him the importance of making sure he gets good continuation of the therapy. Will plan on day 15 being his day of discharge. Anticipate at least two more weeks of therapy. He is going to be seen in the office in about nine days on June 13 and if need be the therapy can be extended. Per my discussion with him today he has a firm understanding of this. Lastly, I encouraged him to not sit with the knee hyperflexed like he has been because this also encourage is swelling below the knee and can decrease the blood flow to the anterior portion of the knee where the wound is healing. Subjective Subjective Date/Time Seen: 06/04/22 08:11 Principal diagnosis: Dx: Interval history: 71-year-old male hospital day 2. His symptoms are virtually non-existent at this point. He is anxious to go home. Exam Const: General: cooperative, alert and awake Orientation/consciousness: patient oriented x3 HENMT: Head: normal to inspection Ears: hearing grossly normal bilaterally Resp: Effort & Inspection: able to speak in complete sentences Neuro: General: patient oriented x3 Extrem: Other: Exam of the right lower extremity shows that months of the redness and swelling has receded. Knee wound looks like it is continuing to heal well with the dressing changes. Grossly neurovascular status right lower extremity unremarkable. Psych: Mental Status: mental status grossly normal Objective Data Vital Signs Vital Signs: Vital Signs - 24 hr 06/03/22 10:00 06/03/22 10:09 06/03/22 10:08 Temperature Pulse Rate 99 98 Respiratory Rate 20 20 Blood Pressure Pulse Oximetry 97 Oxygen Delivery Room Air 06/03/22 14:00 06/03/22 14:50 06/03/22 14:58 Temperature 97.8 F Pulse Rate 73 87 90 Respiratory Rate 16 20 20 Blood Pressure 138/68 Pulse Oximetry 98 Oxygen Delivery 06/03/22 20:18 06/03/22 21:38 06/03/22 20:00 Temperature 98.0 F Pulse Rate 68 90 Respiratory Rate 18 18 Blood Pressure 115/72 Pulse Oximetry 99 Oxygen Delivery Room Air 06/03/22 20:25 06/04/22 05:33 06/04/22 07:22 Temperature 98.1 F Pulse Rate 73 76 85 Respiratory Rate 18 18 18 Blood Pressure 148/87 H Pulse Oximetry 98 Oxygen Delivery 06/04/22 07:24 06/04/22 07:33 Temperature Pulse Rate 84 Respiratory Rate 18 Blood Pressure Pulse Oximetry 96 Oxygen Delivery Room Air Intake/Output Intake/Output: Intake & Output 06/01/22 06/02/22 06/03/22 06/04/22 23:59 23:59 23:59 23:59 Intake Total 500 / 500 2770 / 2770 2042 / 2042 1404 / 1404 Output Total 300 / 300 Balance 500 / 500 2770 / 2770 1742 / 1742 1404 / 1404 Meds/Results Medications: Active Medications Generic Name Dose Route Start Last Admin Trade Name Freq PRN Reason Stop Dose Admin Albuterol 2.5 mg 06/02/22 20:00 06/04/22 07:20 Albuterol Sulfate Neb 2.5 Mg/3 Ml Inh INHALATION 2.5 mg TIDRT ERICA Administration Albuterol 1 puff 06/02/22 15:08 Albuterol Sulfate (*Sp) Aerosol 1 Puff INHALATION Q4-6H PRN Shortness Of Breath Amlodipine Besylate 5 mg 06/03/22 09:00 06/03/22 09:08 Amlodipine Besylate 5 Mg Tablet PO 5 mg QAM ERICA Administration Doxepin HCl 25 mg 06/02/22 21:00 06/03/22 20:21 Doxepin Hcl 25 Mg Capsule PO 25 mg HS ERICA Administration Enoxaparin Sodium 40 mg 0
[2022-06-04] MEDS: ENOXAPARIN 40 MG/0.4 ML SYRINGE SUB-Q (08:47)
[2022-06-04] MEDS: PANTOPRAZOLE 40 MG TABLET PO ×2 (08:47→17:50)
[2022-06-04] MEDS: GABAPENTIN 300 MG CAPSULE PO ×3 (08:47→17:50)
[2022-06-04] MEDS: amLODIPine BESYLATE 5 MG TABLET PO (08:47)
[2022-06-04] MEDS: GENTAMICIN SULFATE 0.1% OINT 15 GM TUBE 1 APPLIC TOPICAL (08:48)
--- NOTE | 2022-06-04 12:45 | PM.IMPN ---
Progress Note: A&P Assessment and Plan (1) Cellulitis: Qualifiers: Laterality: right Site of cellulitis: extremity Site of cellulitis of extremity: lower extremity Qualified Code(s): L03.115 - Cellulitis of right lower limb Code(s): L03.90 - Cellulitis, unspecified Status: Acute Assessment and Plan: Patient has been started on vancomycin. Cultures has been negative so far. Redness and swelling is improving. Completed course of clindamycin in the outpatient setting for septic patella bursitis Blood cultures no growth to date Continue vancomycin for MRSA wound infection Continue to monitor Supportive care (2) Septic prepatellar bursitis of right knee: Code(s): M71.161 - Other infective bursitis, right knee Status: Acute Assessment and Plan: Unchanged Status post debridement Supportive care Continue to monitor Completed course of clindamycin in the outpatient setting (3) COPD (chronic obstructive pulmonary disease): Qualifiers: COPD type: unspecified COPD Qualified Code(s): J44.9 - Chronic obstructive pulmonary disease, unspecified Code(s): J44.9 - Chronic obstructive pulmonary disease, unspecified Status: Acute Assessment and Plan: Continue home meds Continue to monitor Received neb treatments in the emergency room (4) Hypertension: Code(s): I10 - Essential (primary) hypertension Status: Acute Assessment and Plan: Continue home meds Continue to monitor (5) Obstructive sleep apnea: Onset Date: ~12/2020 Code(s): G47.33 - Obstructive sleep apnea (adult) (pediatric) Status: Acute Assessment and Plan: CPAP at nighttime (6) Seizure disorder: Code(s): G40.909 - Epilepsy, unspecified, not intractable, without status epilepticus Status: Acute Assessment and Plan: Unchanged Continue home meds Subjective Date/time seen: 06/04/22 12:45 Interval history: No overnight events. Feels well tried lower leg is swollen and red is been ongoing for last couple days. Recently had washout of the right knee for septic prepatellar bursitis about 3 weeks ago. Was on wound VAC. he has been on clindamycin. No fever reported. At worsening redness and swelling for wound care nurse however patient reports he has been feeling about the same 06/03/2022 no overnight events wound looks good. The redness is improving. Denies any fever chills. Wound Care is following 06/04/2022 no overnight event. His leg swelling and redness is improving. Denies any fever chills. Review of Systems Review of Systems: All systems reviewed & are unremarkable except as noted in HPI and below Exam Narrative: GENERAL: Well-appearing, well-nourished, and in no acute distress. HEAD: Normocephalic, atraumatic. EYES: EOMI. CHEST: No respiratory distress.? Mildly restricted with scattered wheezes.? No rales or rhonchi HEART: Regular rate and rhythm. No murmur heard. Normal peripheral pulses. EXTREMITIES: Normal range of motion.? Erythema with 1+ pitting edema noted to the right lower extremity from the knee down into the foot.? Normal DP pulse.? Normal sensation: Knee with open wound with no foul discharge or erythema noted SKIN: Warm, dry, no rash. NEURO: No focal deficits. Alert and oriented x3. PSYCH: Normal mood and affect Objective Data Vital Signs Vital Signs: Vital Signs - 24 hr 06/03/22 14:00 06/03/22 14:50 06/03/22 14:58 Temperature 97.8 F Pulse Rate 73 87 90 Respiratory Rate 16 20 20 Blood Pressure 138/68 Pulse Oximetry 98 Oxygen Delivery 06/03/22 20:18 06/03/22 21:38 06/03/22 20:00 Temperature 98.0 F Pulse Rate 68 90 Respiratory Rate 18 18 Blood Pressure 115/72 Pulse Oximetry 99 Oxygen Delivery Room Air 06/03/22 20:25 06/04/22 05:33 06/04/22 07:22 Temperature 98.1 F Pulse Rate 73 76 85 Respiratory Rate 18 18 18 Blood Pressure 148/87 H Pulse Oximetry 98
[2022-06-04] MEDS: rOPINIRole HCL 1 MG TABLET 3 MG PO (20:39)
[2022-06-04] MEDS: SERTRALINE HCL 50 MG TABLET 100 MG PO (20:39)
[2022-06-04] MEDS: IRBESARTAN 150 MG TABLET PO (20:40)
[2022-06-04] MEDS: DOXEPIN HCL 25 MG CAPSULE PO (20:40)
[2022-06-04] MEDS: ZOLPIDEM TARTRATE (*CRX) 5 MG TABLET PO (22:21)
[2022-06-05] VITALS (8 sets, daily range): BP systolic 112–128; BP diastolic 64–73; PULSE 66–80; RESP 18–20; TEMP 36.2–36.4; O2SAT 96–100
[2022-06-05 02:24] LABS: Vancomycin Trough 17.6 ug/mL (10.0-20.0)
[2022-06-05] MEDS: ALBUTEROL SULFATE NEB 2.5 MG/3 ML INH INHALATION ×2 (07:45→13:57)
[2022-06-05] MEDS: FLUTICASONE/SALMETEROL 115-21 MCG INHALER 1 PUFF 2 PUFF INHALATION (07:46)
[2022-06-05] MEDS: GABAPENTIN 300 MG CAPSULE PO ×2 (09:50→12:15)
[2022-06-05] MEDS: PANTOPRAZOLE 40 MG TABLET PO (09:50)
[2022-06-05] MEDS: ENOXAPARIN 40 MG/0.4 ML SYRINGE SUB-Q (09:50)
[2022-06-05] MEDS: amLODIPine BESYLATE 5 MG TABLET PO (09:50)
[2022-06-05] MEDS: GENTAMICIN SULFATE 0.1% OINT 15 GM TUBE 1 APPLIC TOPICAL (09:50)
--- NOTE | 2022-06-05 12:49 | PM.DS ---
DS: Admitting Diagnosis Discharge Date 06/05/2022 Admitting Diagnosis Right leg cellulitis DS: Discharge Diagnosis Discharge Diagnosis (1) Cellulitis: Qualifiers: Laterality: right Site of cellulitis: extremity Site of cellulitis of extremity: lower extremity Qualified Code(s): L03.115 - Cellulitis of right lower limb Code(s): L03.90 - Cellulitis, unspecified Status: Acute Assessment and Plan: Patient has been started on vancomycin. Cultures has been negative so far. Redness and swelling is improving. Completed course of clindamycin in the outpatient setting for septic patella bursitis Blood cultures no growth to date Continue vancomycin for MRSA wound infection Continue to monitor Supportive care Switched to clindamycin oral at the time of discharge for 7 more days and follow up as an outpatient basis (2) Septic prepatellar bursitis of right knee: Code(s): M71.161 - Other infective bursitis, right knee Status: Acute Assessment and Plan: Unchanged Status post debridement Supportive care Continue to monitor Completed course of clindamycin in the outpatient setting Switch to 7 more days of clindamycin at discharge or further description of antibiotic dose and duration per Orthopedics follow-up closely as an outpatient basis for any worsening symptoms. (3) COPD (chronic obstructive pulmonary disease): Qualifiers: COPD type: unspecified COPD Qualified Code(s): J44.9 - Chronic obstructive pulmonary disease, unspecified Code(s): J44.9 - Chronic obstructive pulmonary disease, unspecified Status: Acute Assessment and Plan: Continue home meds Continue to monitor Received neb treatments in the emergency room (4) Hypertension: Code(s): I10 - Essential (primary) hypertension Status: Acute Assessment and Plan: Continue home meds Continue to monitor (5) Obstructive sleep apnea: Onset Date: ~12/2020 Code(s): G47.33 - Obstructive sleep apnea (adult) (pediatric) Status: Acute Assessment and Plan: CPAP at nighttime (6) Seizure disorder: Code(s): G40.909 - Epilepsy, unspecified, not intractable, without status epilepticus Status: Acute Assessment and Plan: Unchanged Continue home meds DS: Summary Hospital Course Hospital Course: See above Time Spent with Patient Time attestation: Total time spent providing and/or coordinating discharge services: 45 minutes Exam Narrative: GENERAL: Well-appearing, well-nourished, and in no acute distress. HEAD: Normocephalic, atraumatic. EYES: EOMI. CHEST: No respiratory distress.? Mildly restricted with scattered wheezes.? No rales or rhonchi HEART: Regular rate and rhythm. No murmur heard. Normal peripheral pulses. EXTREMITIES: Normal range of motion.? Erythema with 1+ pitting edema noted to the right lower extremity from the knee down into the foot.? Normal DP pulse.? Normal sensation: Knee with open wound with no foul discharge or erythema noted SKIN: Warm, dry, no rash. NEURO: No focal deficits. Alert and oriented x3. PSYCH: Normal mood and affect DS: Data Data Completed and Pending Labs on day of discharge: Labs from last 24 hours 06/05/22 01:43 Vancomycin Trough 17.6 Preliminary micro results at discharge 06/01/22 18:20 Blood Culture - Preliminary Blood 06/01/22 18:20 Blood Culture - Preliminary Blood Imaging Radiologist's impression: ITS Impressions Venous Doppler Study 06/01/22 18:12 IMPRESSION: 1: No lower extremity deep venous thrombosis. Discharge Plan Discharge Attending physician on discharge: Carlitos Miranda Consulting providers: Mao Dangelo ; Fawn Spear Discharging Clinician: Carlitos Miranda Anticipated Discharge Date/Time: 06/05/22 12:43 Patient Disposition: Home Health Service Activity: as tolerated Diet: heart healthy Wound Care Inst
== END 2022-06-05 14:16 | disposition home health service (06) | DRG 603 ==
LOC: ANHED 20:32 → ANH3MEDSUR 21:41
PROVIDERS: Physician Assistant; Admitting Provider Internal Medicine; Emergency Provider General Practice; PCP Emergency Medicine; Visit Provider Internal Medicine
DX: L03.115 Cellulitis of right lower limb (principal); M71.161 Other infective bursitis, right knee; B95.62 Methicillin resistant Staphylococcus aureus infection as the cause of diseases classified elsewhere; J43.9 Emphysema, unspecified; I10 Essential (primary) hypertension; G47.33 Obstructive sleep apnea (adult) (pediatric); G40.909 Epilepsy, unspecified, not intractable, without status epilepticus; K21.9 Gastro-esophageal reflux disease without esophagitis; Z20.822 Contact with and (suspected) exposure to COVID-19; Z79.899 Other long term (current) drug therapy; Z87.891 Personal history of nicotine dependence
CPT/HCPCS: 36415; 80048; 80202; 82565; 83605; 85025; 85055; 85610; 85652; 85730; 86140; 87040; 93971; 94640; 96365; 99285; A9270; C9803; G0378; J1650; J3370; U0003; U0005

== ENCOUNTER 2022-08-22 07:14 | Outpatient (RCR) | payer MEDICARE, SELFPAY ==
[2022-08-04 09:00] VITALS: BMI 37.8
== END 2022-10-24 09:50 | disposition home or self-care (01) ==
LOC: ANHWOC 07:14
PROVIDERS: PCP Emergency Medicine; Visit Provider Nurse Practitioner
DX: M71.161 Other infective bursitis, right knee (principal)
CPT/HCPCS: 99212; 99213; A9270; G0463